=== PATIENT | female | born 1975 | race Caucasian/White ===

== ENCOUNTER 2017-01-24 20:22 | Emergency (ER) | payer OTHER ==
[~2017-01-24] VITALS: Ht 170.2 cm; Wt 142.3 kg
[~2017-01-24 20:22] MED LIST: ASPI81TA28 PO; BENZ0.5T2 PO; CYCL10TA6 PO; DPPI150 IM; KLN5X PO; LISI-729 PO; LITH150C PO; LMC25 PO; LTD/40 PO; NRN400 PO; NRV/10 PO; ONDA4TAB10 SL; POTA-331 PO
[2017-01-24 20:45] VITALS: TEMP 36.9; Ht 170.2 cm; Wt 142.3 kg
[2017-01-24] MEDS ORDERED: SODIUM CHLORIDE 0.9% 1000ML 500 ML IV STA (21:36)
--- NOTE | 2017-01-24 21:50 | EMERGENCY ROOM VISIT NOTE ---
History Report prepared by [place]: Berny Flores Under the Supervision of: Dr. Donnell Guevara M.D. First contact with patient: 21:32 Chief Complaint: HYPERTENSION Stated Complaint: HIGH BP History of Present Illness The patient is a 41 year old female who presents to the Emergency Room with complaints of persistent hypertension beginning four hours prior to arrival. She associates intermittent shortness of breath, intermittent chest pain that lasts a couple seconds, resolved heart pounding, and general dizziness with today's symptoms. The patient states she took her blood pressure at the onset of symptoms and it was 124/98, but her last blood pressure was 131/101. She notes her pressure is usually 128/68. She states she takes blood pressure medication and denies missing any doses. The patient notes she has a superficial blood clot in her leg that was diagnosed a couple months ago, and her father recently had a DVT. She states she takes Aspirin. The patient also notes she has anxiety, but she has not felt more stressed than usual. She states she takes Ferriday, and her level was last checked over a month ago. The patient denies recent long travel, heart issues, lung disease, cough, and fever. Source of History: patient Onset: four hours MORNING CAREGIVER Position: other (global) Quality: other (hypertension) Timing: other (persistent) Associated Symptoms: + SOB (intermittent), + chest pain (intermittent), No cough, No fevers Note: Associated symptoms: resolved heart pounding, general dizziness. Review of Systems See HPI for pertinent positives & negatives. A total of 10 systems reviewed and were otherwise negative. 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 (16) Morbid Obesity (17) Obesity, morbid, BMI 40.0-49.9 (18) PCOS (polycystic ovarian syndrome) (19) Seizure disorder Surgical Problems: (1) H/O dilation and curettage (2) Hx of cholecystectomy (3) Hx of cholecystectomy (4) S/p removal of ruptured ovarian cyst Family History Depression FATHER Diabetes mellitus MOTHER FH: GA (myocardial infarction) FH: bipolar disorder FATHER SON FH: cancer MOTHER (endometrial CA) FH: gallbladder disease FH: heart disease MOTHER Hypertension MOTHER Seizures Social History Smoking Status: Current Every Day Smoker Alcohol Use: none Drug Use: none Marital Status: Housing Status: lives with family Occupation Status: employed Current/Historical Medications Scheduled Amlodipine Besylate (Amlodipine Besylate), 10 MG PO 1700 Aspirin (Aspirin Ec), 162 MG PO DAILY Fish Oil ([place]-3), 1 CAP PO DAILY Gabapentin (Neurontin), 600 MG PO TID Lamotrigine (Lamotrigine), 50 MG PO QAM Lamotrigine (Lamictal), 100 MG PO HS Lisinopril (Zestril), 10 MG PO DAILY Ferriday Carbonate (Ferriday Carbonate), 150 MG PO QAM [place] Carbonate (Ferriday Carbonate), 1,350 MG PO HS Lorazepam (Ativan), 0.5 MG PO TID Lurasidone HCl (Latuda), 80 MG PO 1700 Metformin Hcl (Glucophage), 1,000 MG PO BIDM Multivitamin (Multivitamin), 1 TAB PO DAILY Omeprazole (Prilosec), 20 MG PO DAILY Potassium Ext Rel (Klor-Con), 40 MEQ PO DAILY Probiotic Product (Probiotic), 1 TAB PO DAILY Scheduled PRN Cetirizine Hcl (Zyrtec), 10 MG PO DAILY PRN for Allergy Symptoms Allergies Coded Allergies: No Known Allergies (Verified , 01/24/17) Physical Exam Vital Signs Date Time Temp Pulse Resp B/P Pulse Ox O2 Delivery O2 Flow Rate FiO2 01/25/17 01:44 99 18 132/82 95 01/25/17 01:23 102 01/25/17 00:52 97 18 132/89 94 Room Air 01/24/17 23:00 106 18 132/96 95 Room Air 01/24/17 22:30 153/104 01/24/17 22:22 102 19 95 01/24/17 22:19 146/118 01/24/17 21:52 113 24 96 01/24/17 21:23 113 01/24/17 21:22 113 17 95 01/24/17 21:09 133/104 01/24/17 21:09 123 20 133/104 97 Room Air 01/24/17 20:45 36.9 126 20 149/97 96 Room Air Physical Exam GENERAL: Patient is in no acute distress. HEENT: No acute trauma, normocephalic atraumatic, mucous membranes moist, no nasal congestion, no scleral icterus. NECK: No stridor, no adenopathy, no meningismus, trachea is midline. LUNGS: Clear to auscultation bilaterally, no wheeze, no rhonchi, breath sounds equal. HEART: Tachycardic with a regular rhythm, no murmurs. ABDOMEN: Soft, nontender, bowel sounds positive, no hernias, no peritonitis. EXTREMITIES: No cyanosis or edema, full range of motion of all the joints without pain or difficulty, no signs for acute trauma. NEUROLOGIC: Oriented x 3, no acute motor or sensory deficits, no focal weakness. SKIN: No rash, no jaundice, no diaphoresis. Medical Decision & Procedures ER Provider Diagnostic Interpretation: X ray results and stated below per my interpretation and radiologist interpretation. Other radiology results and stated below per my review and radiologist interpretation: SINGLE VIEW CHEST CLINICAL HISTORY: Weakness. Change in mental status. FINDINGS: An AP, portable, upright chest radiograph is compared to study dated 06/20/2015 and correlated with chest CT dated 05/29/2015. The examination is degraded by portable technique, large body habitus, and apical lordotic positioning. The cardiomediastinal silhouette is unremarkable. The lungs and pleural spaces are clear. No pneumothorax is seen. The bony thorax is grossly intact. IMPRESSION: No acute cardiopulmonary abnormality. Electronically signed by: Donnell Nuno M.D. 01/24/2017 10:01 PM CTA CHEST: No central pulmonary embolus. No effusions or confluent consolidation. Large fatty liver. Radiologist: Janine Craig M.D. Study ready at 00:28 and initial results transmitted at 00:56 Laboratory Results 01/24/17 22:05 Red Blood Count 5.25, Mean Corpuscular Volume 79.4, Mean Corpuscular Hemoglobin 26.1, Mean Corpuscular Hemoglobin Concent 32.9, Mean Platelet Volume 9.2, Neutrophils (%) (Auto) 68.3, Lymphocytes (%) (Auto) 24.6, Monocytes (%) (Auto) 5.8, Eosinophils (%) (Auto) 0.8, Basophils (%) (Auto) 0.1, Neutrophils # (Auto) 12.36, Lymphocytes # (Auto) 4.45, Monocytes # (Auto) 1.04, Eosinophils # (Auto) 0.14, Basophils # (Auto) 0.01 01/24/17 22:05 Test 01/24/17 22:05 01/24/17 22:07 White Blood Count 18.08 K/uL (4.8-10.8) Red Blood Count 5.25 M/uL (4.2-5.4) Hemoglobin 13.7 g/dL (12.0-16.0) Hematocrit 41.7 % (37-47) Mean Corpuscular Volume 79.4 fL (80-100) Mean Corpuscular Hemoglobin 26.1 pg (25-34) Mean Corpuscular Hemoglobin Concent 32.9 g/dl (32-36) Platelet Count 367 K/uL (130-400) Mean Platelet Volume 9.2 fL (7.4-10.4) Neutrophils (%) (Auto) 68.3 % Lymphocytes (%) (Auto) 24.6 % Monocytes (%) (Auto) 5.8 % Eosinophils (%) (Auto) 0.8 % Basophils (%) (Auto) 0.1 % Neutrophils # (Auto) 12.36 K/uL (1.4-6.5) Lymphocytes # (Auto) 4.45 K/uL (1.2-3.4) Monocytes # (Auto) 1.04 K/uL (0.11-0.59) Eosinophils # (Auto) 0.14 K/uL (0-0.5) Basophils # (Auto) 0.01 K/uL (0-0.2) RDW Standard Deviation 46.6 fL (36.4-46.3) RDW Coefficient of Variation 16.2 % (11.5-14.5) Immature Granulocyte % (Auto) 0.4 % Immature Granulocyte # (Auto) 0.08 K/uL (0.00-0.02) Prothrombin Time 9.7 SECONDS (9.0-12.0) Prothromb Time International Ratio 0.9 (0.9-1.1) Activated Partial Thromboplast Time 24.3 SECONDS (21.0-31.0) Partial Thromboplastin Ratio 0.9 Anion Gap 15.0 mmol/L (3-11) Est Creatinine Clear Calc Drug Dose 109.7 ml/min Estimated GFR () 81.5 Estimated GFR (Non- 70.3 BUN/Creatinine Ratio 11.0 (10-20) Calcium Level 9.2 mg/dl (8.5-10.1) Magnesium Level 1.9 mg/dl (1.8-2.4) Troponin I < 0.015 ng/ml (0-0.045) Thyroid Stimulating Hormone (TSH) 2.370 uIu/ml (0.300-4.500) Ferriday Level 0.4 mMOL/L (0.6-1.2) Bedside D-Dimer > 450 ng/mlFEU (0-450) Laboratory results reviewed by me. Medications Administered Medications (Trade) Dose Ordered Sig/Amanda Route Start Time Stop Time Status Last Admin Dose Admin Sodium Chloride (Nss 1000ml) 500 ml @ 999 mls/hr Q31M STAT IV 01/24/17 21:36 01/24/17 22:06 DC 01/24/17 21:36 999 MLS/HR ECG Indication: other (hypertension) Rate (beats per minute): 118 Rhythm: sinus tachycardia Findings: no acute ischemic change, no ectopy ED Course 2133: The patient was evaluated in room B4B. A complete history and physical exam was performed. 6: Ordered Sodium Chloride 500 ml @ 999 mls/hr IV. 0029: Reevaluated the patient at this time, and she is doing well and waiting on test results. 0112: Reevaluated the patient, and her blood pressure is 118/60 and heart rate is 84, while she was sleeping. Discussed results and discharge instructions: She verbalized understanding and agreement. The patient is ready for discharge. Medical Decision The differential diagnoses include but are not limited to: anxiety, essential hypertension, renal failure, electrolyte imbalance, viral infection, PE, dysrhythmia, thyroid disorder, toxic lithium level. There is a moderate leukocytosis at 18,000, this could be consistent with infection or the stress of her presentation. Of note, patient has not had fever , cough, no urinary symptoms. There was no significant electrolyte abnormality, kidney failure. The patient appears to be in a euthyroid state. EKG shows a sinus tachycardia, no acute ischemia. Cardiac enzyme testing times one is not consistent with acute cardiac injury. Chest x-ray does not show CHF or pneumonia. D-dimer testing was elevated. Chest CT shows no PE, no pneumonia or aortic dissection. Ferriday level was not toxic. The patient received IV saline, she was watched closely. Her heart rate and blood pressure decreased to normal, she felt better. In retrospect, the patient admits to some increased stress in that her son is back home. I do think she can be discharged to follow with her doctors office. Her presentation today may have been stress related. She currently has no complaints. Her symptoms have resolved. Impression Primary Impression: Palpitations Scribe Attestation The scribe's documentation has been prepared under my direction and personally reviewed by me in its entirety. I confirm that the note above accurately reflects all work, treatment, procedures, and medical decision making performed by me. Departure Information Dispostion Home / Self-Care Referrals Ingrid Arthur D.O. (PCP) Forms HOME CARE DOCUMENTATION FORM, IMPORTANT VISIT INFORMATION Patient Instructions My [facility] Additional Instructions all meds the same for now testing today was all ok as discussed no clot by CT scan return if worsening see emelina cifuentes for a recheck this week
--- NOTE | 2017-01-24 22:02 | DIAGNOSTIC IMAGING REPORT ---
SINGLE VIEW CHEST CLINICAL HISTORY: Weakness. Change in mental status. FINDINGS: An AP, portable, upright chest radiograph is compared to study dated 06/20/2015 and correlated with chest CT dated 05/29/2015. The examination is degraded by portable technique, large body habitus, and apical lordotic positioning. The cardiomediastinal silhouette is unremarkable. The lungs and pleural spaces are clear. No pneumothorax is seen. The bony thorax is grossly intact. IMPRESSION: No acute cardiopulmonary abnormality. Electronically signed by: Donnell Nuno M.D. 01/24/2017 10:01 PM Dictated Date/Time: 01/24/2017 10:00 PM
[2017-01-24 22:14] LABS: BASO % 0.1 %; BASO ABS # 0.01 K/uL (0-0.2); COMPLETE YES; EOS % 0.8 %; HEMATOCRIT 41.7 % (37-47); IG% 0.4 %; LYMPH % 24.6 %; LYMPH ABS # 4.45 K/uL (1.2-3.4); MEAN CELL VOLUME 79.4 fL (80-100); MEAN CORPUSCULAR HEMOGLOBIN 26.1 pg (25-34); MEAN CORPUSCULAR HGB CONC 32.9 g/dl (32-36); MEAN PLATELET VOLUME 9.2 fL (7.4-10.4); MONO % 5.8 %; NEUT % 68.3 %; PLATELET COUNT 367 K/uL (130-400); RED BLOOD COUNT 5.25 M/uL (4.2-5.4); WHITE BLOOD COUNT 18.08 K/uL (4.8-10.8)
[2017-01-24 22:22] LABS: INR 0.9 (0.9-1.1); PARTIAL THROMBOPLASTIN RATIO 0.9; PROTHROMBIN TIME (PATIENT) 9.7 SECONDS (9.0-12.0)
[2017-01-24 22:34] LABS: BLOOD UREA NITROGEN 11 mg/dl (7-18); CARBON DIOXIDE 19 mmol/L (21-32); CHLORIDE 107 mmol/L (98-107); CREATININE 0.99 mg/dl (0.60-1.20); GLUCOSE 174 mg/dl (70-99); MAGNESIUM 1.9 mg/dl (1.8-2.4); POTASSIUM 3.5 mmol/L (3.5-5.1); SODIUM 141 mmol/L (136-145)
[2017-01-24 22:42] LABS: CALCIUM 9.2 mg/dl (8.5-10.1)
[2017-01-24] MEDS ORDERED: GABA-113 PO (23:12)
[2017-01-24] MEDS ORDERED: LAMO100T16 PO (23:12)
[2017-01-24] MEDS ORDERED: LORA-741 PO (23:13)
[2017-01-24] MEDS ORDERED: LITH150C PO (23:15)
[2017-01-24] MEDS ORDERED: LITH150C6 PO (23:16)
[2017-01-24] MEDS ORDERED: POTA20TA16 PO (23:19)
[2017-01-25 01:44] VITALS: BP 132/82; PULSE 99; O2SAT 95
--- NOTE | 2017-01-25 06:46 | DIAGNOSTIC IMAGING REPORT ---
CT ANGIOGRAM OF THE CHEST CLINICAL HISTORY: Atypical chest pain COMPARISON STUDY: 05/29/2015 TECHNIQUE: Following the IV administration of 84 mL of Optiray-320, CT angiogram of the thorax was performed from the thoracic inlet to the lung bases utilizing the pulmonary embolus protocol. Images are reviewed in the axial, sagittal, and coronal planes. IV contrast was administered without complication. MIP imaging was performed. CT DOSE: 751.71 mGy.cm FINDINGS: There is hepatic steatosis. No pathologically enlarged axillary mediastinal or hilar lymph nodes were visualized. There was no evidence of thoracic aortic dilatation. There were no pulmonary artery filling defects to indicate acute pulmonary embolism. No pleural effusions are visualized. There was no evidence of focal pulmonary consolidation. The study is mildly compromised secondary to respiratory motion artifact IMPRESSION: 1. Examination mildly compromised secondary to respiratory motion artifact 2. No CT evidence of acute pulmonary embolism 3. No evidence of focal pulmonary consolidation. 3. Hepatic steatosis Electronically signed by: Gokul Norris M.D. 01/25/2017 6:45 AM Dictated Date/Time: 01/25/2017 6:42 AM
== END 2017-01-25 01:46 | disposition home or self-care (01) ==
LOC: C.EDB 20:23
DX: R00.2 Palpitations (principal); F41.9 Anxiety disorder, unspecified; F31.9 Bipolar disorder, unspecified; E88.81 Metabolic syndrome and other insulin resistance; K21.9 Gastro-esophageal reflux disease without esophagitis; I10 Essential (primary) hypertension; E16.1 Other hypoglycemia; G47.10 Hypersomnia, unspecified; N28.9 Disorder of kidney and ureter, unspecified; E66.01 Morbid (severe) obesity due to excess calories; E28.2 Polycystic ovarian syndrome; G40.909 Epilepsy, unspecified, not intractable, without status epilepticus; Z83.3 Family history of diabetes mellitus; Z82.49 Family history of ischemic heart disease and other diseases of the circulatory system; Z82.0 Family history of epilepsy and other diseases of the nervous system; F17.200 Nicotine dependence, unspecified, uncomplicated; Z79.82 Long term (current) use of aspirin

== ENCOUNTER 2017-04-19 13:46 | Emergency (ER) | payer OTHER ==
[~2017-04-19] VITALS: Ht 170.2 cm; Wt 133.8 kg
[~2017-04-19 13:46] MED LIST changes: -BENZ0.5T2 PO; -CYCL10TA6 PO; -DPPI150 IM; +GABA-113 PO; -KLN5X PO; +LAMO100T16 PO; +LITH150C6 PO; +LORA-741 PO; -NRN400 PO; -ONDA4TAB10 SL; -POTA-331 PO; +POTA20TA16 PO
[2017-04-19 13:49] VITALS: TEMP 37.2; Ht 170.2 cm; Wt 133.8 kg
--- NOTE | 2017-04-19 14:11 | EMERGENCY ROOM VISIT NOTE ---
ED Visit Note First contact with patient: 13:54 I have seen and examined this patient with Yuliet Dill and generally agree with the treatment plan as discussed. Problem List Medical Problems: (1) Anxiety Status: Chronic (2) Anxiety Status: Chronic (3) Bipolar 1 disorder Status: Chronic (4) Bipolar disorder Status: Chronic (5) Depression Status: Chronic (6) Depression Status: Chronic (7) Dysmetabolic Syndrome X Status: Chronic (8) Esophageal Reflux Status: Chronic (9) Headache Status: Resolved (10) HTN (hypertension) Status: Chronic (11) HTN (hypertension) Status: Resolved (12) Hyperinsulinemia Status: Chronic (13) Hypersomnia with sleep apnea Status: Chronic (14) Kidney disease Status: Chronic (15) [place] toxicity Status: Resolved (16) Morbid Obesity Status: Chronic (17) Obesity, morbid, BMI 40.0-49.9 Status: Chronic (18) PCOS (polycystic ovarian syndrome) Status: Chronic (19) Seizure disorder Status: Chronic Surgical Problems: (1) H/O dilation and curettage Status: Chronic (2) Hx of cholecystectomy Status: Resolved (3) Hx of cholecystectomy Status: Chronic (4) S/p removal of ruptured ovarian cyst Status: Chronic Current/Historical Medications Scheduled Amlodipine Besylate (Amlodipine Besylate), 10 MG PO 1700 Aspirin (Aspirin Ec), 162 MG PO DAILY Fish Oil ([place]-3), 1 CAP PO DAILY Gabapentin (Neurontin), 600 MG PO TID Lamotrigine (Lamotrigine), 50 MG PO QAM Lamotrigine (Lamictal), 100 MG PO HS Lisinopril (Zestril), 10 MG PO DAILY [place] Carbonate ([place] Carbonate), 150 MG PO QAM [place] Carbonate ([place] Carbonate), 1,350 MG PO HS Lorazepam (Ativan), 0.5 MG PO TID Lurasidone HCl (Latuda), 80 MG PO 1700 Metformin Hcl (Glucophage), 1,000 MG PO BIDM Multivitamin (Multivitamin), 1 TAB PO DAILY Omeprazole (Prilosec), 20 MG PO DAILY Potassium Ext Rel (Klor-Con), 40 MEQ PO DAILY Probiotic Product (Probiotic), 1 TAB PO DAILY Scheduled PRN Cetirizine Hcl (Zyrtec), 10 MG PO DAILY PRN for Allergy Symptoms Allergies Coded Allergies: No Known Allergies (Verified , 01/24/17) Vital Signs Date Time Temp Pulse Resp B/P (MAP) Pulse Ox O2 Delivery O2 Flow Rate FiO2 04/19/17 13:49 37.2 95 20 158/96 97 Room Air Laboratory Results Test 04/19/17 14:05 Creatine Kinase MB Ratio (0-3.0) Departure Information Referrals Ingrid Arthur D.O. (PCP) Patient Instructions [facility]
[2017-04-19] MEDS ORDERED: LITH600C PO (14:44)
[2017-04-19] MEDS ORDERED: ASPI325T45 PO (14:44)
[2017-04-19] MEDS ORDERED: NRN600 PO (14:44)
[2017-04-19] MEDS ORDERED: CLON1TAB3 PO (14:44)
[2017-04-19] MEDS ORDERED: VTMD400 PO (14:44)
[2017-04-19] MEDS ORDERED: AMLO-110 PO (14:44)
[2017-04-19 14:52] LABS: BASO % 0.7 %; BASO ABS # 0.08 K/uL (0-0.2); COMPLETE YES; EOS % 5.1 %; HEMATOCRIT 42.5 % (37-47); IG% 0.3 %; LYMPH % 44.7 %; LYMPH ABS # 4.81 K/uL (1.2-3.4); MEAN CELL VOLUME 81.4 fL (80-100); MEAN CORPUSCULAR HEMOGLOBIN 26.6 pg (25-34); MEAN CORPUSCULAR HGB CONC 32.7 g/dl (32-36); MEAN PLATELET VOLUME 9.5 fL (7.4-10.4); MONO % 5.9 %; NEUT % 43.3 %; PLATELET COUNT 334 K/uL (130-400); RED BLOOD COUNT 5.22 M/uL (4.2-5.4); WHITE BLOOD COUNT 10.75 K/uL (4.8-10.8)
[2017-04-19 14:54] LABS: POINT OF CARE PRO-BNP 42 pg/ml (0-450); POINT OF CARE TROPONIN I < 0.030 ng/ml (0-0.045)
--- NOTE | 2017-04-19 15:01 | DIAGNOSTIC IMAGING REPORT ---
RIGHT LOWER EXTREMITY VENOUS DOPPLER CLINICAL HISTORY: Right leg pain. COMPARISON STUDY: Bilateral lower extremity venous Doppler May 29, 2015. TECHNIQUE: Sonography of the deep venous system of the right lower extremity was performed. Compression and augmentation were evaluated. FINDINGS: The right common femoral, superficial femoral and popliteal veins were compressible. Augmentation was normal. Flow was shown within the deep calf vessels. IMPRESSION: No evidence of deep venous thrombus within the right lower extremity. Electronically signed by: Ugo Price M.D. 04/19/2017 2:59 PM Dictated Date/Time: 04/19/2017 2:59 PM
[2017-04-19 15:03] LABS: INR 0.9 (0.9-1.1); PROTHROMBIN TIME (PATIENT) 9.4 SECONDS (9.0-12.0)
[2017-04-19 15:08] LABS: BLOOD UREA NITROGEN 7 mg/dl (7-18); BUN/CREATININE RATIO 6.6 (10-20); CALCIUM 9.5 mg/dl (8.5-10.1); CARBON DIOXIDE 23 mmol/L (21-32); CHLORIDE 109 mmol/L (98-107); GLUCOSE 117 mg/dl (70-99); POTASSIUM 3.7 mmol/L (3.5-5.1); SODIUM 142 mmol/L (136-145)
--- NOTE | 2017-04-19 15:18 | DIAGNOSTIC IMAGING REPORT ---
CHEST 2 VIEWS ROUTINE CLINICAL HISTORY: Chest pressure. Chest pain. COMPARISON STUDY: Chest radiograph January 24, [address] January 25, 2017. FINDINGS: There is no pneumothorax or pleural effusion. No consolidation is identified. There is no evidence of pulmonary edema. Cardiomediastinal silhouette is normal. IMPRESSION: No acute cardiopulmonary findings. Electronically signed by: Ugo Price M.D. 04/19/2017 3:17 PM Dictated Date/Time: 04/19/2017 3:16 PM
[2017-04-19 15:36] VITALS: BP 119/83; PULSE 77; O2SAT 96
--- NOTE | 2017-04-19 15:46 | EMERGENCY ROOM VISIT NOTE ---
History First contact with patient: 13:54 Chief Complaint: CARDIAC ASSESSMENT Stated Complaint: HEAVYNESS IN CHEST ,BLOOD CLOT IN GROIN Nursing Triage Summary: Yesterday had sharp pain in calf but then the pain started to travel up leg today. Has a weird "brewing" feeling in chest. History of Present Illness The patient is a 41 year old female who presents to the Emergency Room with complaints of right leg pain. The patient states that last night she had pain in the right calf but denies any redness or swelling. She states this morning the pain is now in the right groin region again without any swelling or redness. She also states that her chest feels "weird, like something is brewing ". The patient denies any shortness of breath, recent URI symptoms. The patient denies any jaw pain or arm pain. She denies any numbness and tingling in her extremities. The patient denies any recent travel or any history of blood clots. She is a smoker. The patient states that she takes a 325 mg aspirin daily. She also states that her clotting factor is usually elevated but denies being diagnosed with any specific clotting disorder. The patient denies any history of cardiac disease but does admit to hypertension and hyperlipidemia. The patient denies any early family history of cardiac disease. Review of Systems 10 system review was performed and was negative unless stated otherwise history of present illness. Past Medical/Surgical History Medical Problems: (1) Anxiety (2) Anxiety (3) Bipolar 1 disorder (4) Bipolar disorder (5) Depression (6) Depression (7) Dysmetabolic Syndrome X (8) Esophageal Reflux (9) Headache (10) HTN (hypertension) (11) HTN (hypertension) (12) Hyperinsulinemia (13) Hypersomnia with sleep apnea (14) Kidney disease (15) [place] toxicity (16) Morbid Obesity (17) Obesity, morbid, BMI 40.0-49.9 (18) PCOS (polycystic ovarian syndrome) (19) Seizure disorder Surgical Problems: (1) H/O dilation and curettage (2) Hx of cholecystectomy (3) Hx of cholecystectomy (4) S/p removal of ruptured ovarian cyst Family History Depression FATHER Diabetes mellitus MOTHER FH: OR (myocardial infarction) FH: bipolar disorder FATHER SON FH: cancer MOTHER (endometrial CA) FH: gallbladder disease FH: heart disease MOTHER Hypertension MOTHER Seizures Social History Smoking Status: Current Every Day Smoker Alcohol Use: none Drug Use: none Marital Status: Housing Status: lives with family Occupation Status: employed Current/Historical Medications Scheduled Amlodipine (Norvasc), 5 MG PO BID Aspirin (Aspirin), 325 MG PO DAILY Cholecalciferol (Vitamin D3), 1 TAB PO QAM Clonazepam (Klonopin), 1 MG PO TID Fish Oil ([place]-3), 1 CAP PO DAILY Gabapentin (Gabapentin), 600 MG PO TID Lamotrigine (Lamotrigine), 50 MG PO QAM Lisinopril (Zestril), 10 MG PO DAILY [place] Carbonate ([place] Carbonate), 1,200 MG PO HS Metformin Hcl (Glucophage), 1,000 MG PO BIDM Multivitamin (Multivitamin), 1 TAB PO DAILY Omeprazole (Prilosec), 20 MG PO BID Potassium Ext Rel (Klor-Con), 40 MEQ PO DAILY Probiotic Product (Probiotic), 1 TAB PO DAILY Scheduled PRN Cetirizine Hcl (Zyrtec), 10 MG PO DAILY PRN for Allergy Symptoms Physical Exam Vital Signs Date Time Temp Pulse Resp B/P (MAP) Pulse Ox O2 Delivery O2 Flow Rate FiO2 04/19/17 15:36 77 16 119/83 96 04/19/17 14:14 84 04/19/17 14:08 97 Room Air 04/19/17 13:49 37.2 95 20 158/96 97 Room Air Physical Exam GENERAL: Obese 41-year-old white female appears in no acute distress. MENTAL Status: Alert and oriented 3. EARS: Canals clear. TMs without fluid level noted. NECK: Supple, no lymphadenopathy noted. No carotid bruits noted. LUNGS: Clear auscultation without wheezes rales or rhonchi. CARDIAC: Regular rate and rhythm without murmur. Pulses is full and equal throughout. ABDOMEN: Positive bowel sounds all 4 quadrants. Soft, nontender to palpation without organomegaly or masses. LOWER EXTREMITY is: No cyanosis or edema noted. No erythema noted. No palpable cords bilaterally. The patient has slight tenderness palpation in the right upper inner thigh without any palpable abnormality. Negative Homans bilaterally. Medical Decision & Procedures ER Provider Diagnostic Interpretation: CHEST 2 VIEWS ROUTINE CLINICAL HISTORY: Chest pressure. Chest pain. COMPARISON STUDY: Chest radiograph January 24, [address] January 25, 2017. FINDINGS: There is no pneumothorax or pleural effusion. No consolidation is identified. There is no evidence of pulmonary edema. Cardiomediastinal silhouette is normal. IMPRESSION: No acute cardiopulmonary findings. Electronically signed by: Ugo Price M.D. 04/19/2017 3:17 PM Dictated Date/Time: 04/19/2017 3:16 PM RIGHT LOWER EXTREMITY VENOUS DOPPLER CLINICAL HISTORY: Right leg pain. COMPARISON STUDY: Bilateral lower extremity venous Doppler May 29, 2015. TECHNIQUE: Sonography of the deep venous system of the right lower extremity was performed. Compression and augmentation were evaluated. FINDINGS: The right common femoral, superficial femoral and popliteal veins were compressible. Augmentation was normal. Flow was shown within the deep calf vessels. IMPRESSION: No evidence of deep venous thrombus within the right lower extremity. Electronically signed by: Ugo Price M.D. 04/19/2017 2:59 PM Dictated Date/Time: 04/19/2017 2:59 PM Laboratory Results 04/19/17 14:30 Red Blood Count 5.22, Mean Corpuscular Volume 81.4, Mean Corpuscular Hemoglobin 26.6, Mean Corpuscular Hemoglobin Concent 32.7, Mean Platelet Volume 9.5, Neutrophils (%) (Auto) 43.3, Lymphocytes (%) (Auto) 44.7, Monocytes (%) (Auto) 5.9, Eosinophils (%) (Auto) 5.1, Basophils (%) (Auto) 0.7, Neutrophils # (Auto) 4.65, Lymphocytes # (Auto) 4.81, Monocytes # (Auto) 0.63, Eosinophils # (Auto) 0.55, Basophils # (Auto) 0.08 04/19/17 14:30 Test 04/19/17 14:30 04/19/17 14:35 White Blood Count 10.75 K/uL (4.8-10.8) Red Blood Count 5.22 M/uL (4.2-5.4) Hemoglobin 13.9 g/dL (12.0-16.0) Hematocrit 42.5 % (37-47) Mean Corpuscular Volume 81.4 fL (80-100) Mean Corpuscular Hemoglobin 26.6 pg (25-34) Mean Corpuscular Hemoglobin Concent 32.7 g/dl (32-36) Platelet Count 334 K/uL (130-400) Mean Platelet Volume 9.5 fL (7.4-10.4) Neutrophils (%) (Auto) 43.3 % Lymphocytes (%) (Auto) 44.7 % Monocytes (%) (Auto) 5.9 % Eosinophils (%) (Auto) 5.1 % Basophils (%) (Auto) 0.7 % Neutrophils # (Auto) 4.65 K/uL (1.4-6.5) Lymphocytes # (Auto) 4.81 K/uL (1.2-3.4) Monocytes # (Auto) 0.63 K/uL (0.11-0.59) Eosinophils # (Auto) 0.55 K/uL (0-0.5) Basophils # (Auto) 0.08 K/uL (0-0.2) RDW Standard Deviation 47.2 fL (36.4-46.3) RDW Coefficient of Variation 15.7 % (11.5-14.5) Immature Granulocyte % (Auto) 0.3 % Immature Granulocyte # (Auto) 0.03 K/uL (0.00-0.02) Prothrombin Time 9.4 SECONDS (9.0-12.0) Prothromb Time International Ratio 0.9 (0.9-1.1) Activated Partial Thromboplast Time 25.5 SECONDS (21.0-31.0) Partial Thromboplastin Ratio 1.0 Anion Gap 10.0 mmol/L (3-11) Est Creatinine Clear Calc Drug Dose 104.7 ml/min Estimated GFR () 80.5 Estimated GFR (Non- 69.4 BUN/Creatinine Ratio 6.6 (10-20) Calcium Level 9.5 mg/dl (8.5-10.1) Total Creatine Kinase 51 U/L (26-192) Creatine Kinase MB < 0.5 ng/ml (0.5-3.6) Creatine Kinase MB Ratio (0-3.0) Bedside Troponin I < 0.030 ng/ml (0-0.045) EJ-Yoa-F-Type Natriuretic Peptide 42 pg/ml (0-450) ECG Indication: chest pain Rhythm: normal sinus Findings: no acute ischemic change Change: no significant change ED Course The patient was evaluated. EKG was ordered and interpreted as above any acute changes.. The patient's EMR and medication list were reviewed. Patient was placed on a monitor. Chest x-ray was ordered interpreted by the radiologist and myself as above. Venous Doppler of the right lower extremity was ordered and interpreted by the radiologist without any evidence of DVT. CBC and differential, renal profile, coags, pointing care troponin and BNP, CK-MB were ordered and were all unremarkable. Chest x-ray revealed no acute cardio pulmonary disease. The patient was informed of all findings. The patient's treatment plan was discussed with Dr. Schumacher who agreed. The patient was discharged home in stable condition. Medical Decision Differential diagnosis include pneumonia, bronchitis, acute OR, DVT, superficial phlebitis, muscular strain Medication Reconcilliation Current Medication List: was personally reviewed by me Blood Pressure Screening Patient's blood pressure: Elevated blood pressure Blood pressure disposition: Elevated BP felt to be situational Impression Primary Impression: Leg pain, right Additional Impression: Chest pain Departure Information Dispostion Home / Self-Care Condition GOOD Referrals Ingrid Arthur D.O. (PCP) Forms IMPORTANT VISIT INFORMATION Patient Instructions [employer] Additional Instructions Tylenol as needed for pain. If symptoms persist or worsen, follow-up with your family physician in 2-3 days. If you experience any severe chest pain, shortness of breath, high fever, diaphoresis return to ER immediately. Problem Qualifiers Additional Impression: Chest pain Chest pain type: unspecified Qualified Codes: R07.9 - Chest pain, unspecified
== END 2017-04-19 15:53 | disposition home or self-care (01) ==
LOC: C.EDB 13:47
DX: M79.604 Pain in right leg (principal); R07.9 Chest pain, unspecified; F41.9 Anxiety disorder, unspecified; F31.9 Bipolar disorder, unspecified; F32.9 Major depressive disorder, single episode, unspecified; K21.9 Gastro-esophageal reflux disease without esophagitis; I10 Essential (primary) hypertension; E16.1 Other hypoglycemia; G40.909 Epilepsy, unspecified, not intractable, without status epilepticus; Z83.3 Family history of diabetes mellitus; Z82.49 Family history of ischemic heart disease and other diseases of the circulatory system; Z82.0 Family history of epilepsy and other diseases of the nervous system; F17.200 Nicotine dependence, unspecified, uncomplicated; Z79.82 Long term (current) use of aspirin

== ENCOUNTER 2017-05-03 18:22 | Emergency (ER) | payer OTHER ==
[~2017-05-03] VITALS: Ht 170.2 cm; Wt 132.0 kg
[~2017-05-03 18:22] MED LIST changes: +AMLO-110 PO; +ASPI325T45 PO; -ASPI81TA28 PO; +CLON1TAB3 PO; -GABA-113 PO; -LAMO100T16 PO; -LITH150C PO; -LITH150C6 PO; +LITH600C PO; -LORA-741 PO; -LTD/40 PO; +NRN600 PO; -NRV/10 PO; +VTMD400 PO
[2017-05-03 18:52] VITALS: TEMP 37.5; Ht 170.2 cm; Wt 132.0 kg
[2017-05-03] MEDS ORDERED: CLON0.5T3 PO ×3 (18:59→19:01)
[2017-05-03] MEDS ORDERED: LITH150C PO (18:59)
[2017-05-03] MEDS ORDERED: LTH300C PO (18:59)
[2017-05-03] MEDS ORDERED: LURA80TA PO (18:59)
[2017-05-03] MEDS ORDERED: GABA1CAP4 PO (18:59)
[2017-05-03] MEDS ORDERED: NRV/10 PO (18:59)
[2017-05-03] MEDS ORDERED: LAMO1TAB21 PO (19:01)
[2017-05-03] MEDS ORDERED: ACETAMINOPHEN IV 100 ML IV STA (19:04)
[2017-05-03] MEDS ORDERED: SODIUM CHLORIDE 0.9% 1000ML 1,000 ML IV STA (19:04)
[2017-05-03] MEDS ORDERED: POTA10TA32 PO (19:08)
[2017-05-03] MEDS ORDERED: LISI-461 PO (19:08)
[2017-05-03] MEDS ORDERED: MEDR1INJ5 IM (19:08)
[2017-05-03] MEDS ORDERED: ALBU18002 INH (19:08)
[2017-05-03] MEDS ORDERED: ASPI325T39 PO (19:08)
[2017-05-03 19:13] LABS: HEMATOCRIT 40.7 % (37-47); MEAN CELL VOLUME 80.8 fL (80-100); MEAN CORPUSCULAR HEMOGLOBIN 27.4 pg (25-34); MEAN CORPUSCULAR HGB CONC 33.9 g/dl (32-36); MEAN PLATELET VOLUME 9.6 fL (7.4-10.4); PLATELET COUNT 355 K/uL (130-400); RED BLOOD COUNT 5.04 M/uL (4.2-5.4); WHITE BLOOD COUNT 12.69 K/uL (4.8-10.8)
[2017-05-03] MEDS ORDERED: CHOL1000 PO (19:16)
[2017-05-03 19:25] LABS: ALT/SGPT 28 U/L (12-78); AST/SGOT 12 U/L (15-37); BLOOD UREA NITROGEN 9 mg/dl (7-18); BUN/CREATININE RATIO 7.9 (10-20); CALCIUM 9.9 mg/dl (8.5-10.1); CARBON DIOXIDE 25 mmol/L (21-32); CHLORIDE 104 mmol/L (98-107); GLUCOSE 109 mg/dl (70-99); MAGNESIUM 2.1 mg/dl (1.8-2.4); POTASSIUM 3.9 mmol/L (3.5-5.1); SODIUM 139 mmol/L (136-145)
[2017-05-03 19:36] LABS: ALKALINE PHOSPHATASE 72 U/L (45-117)
[2017-05-03] MEDS ORDERED: CETI10TA10 PO (19:49)
[2017-05-03] MEDS ORDERED: OMEP20CA9 PO (19:49)
[2017-05-03 19:55] LABS: URINE APPEARANCE CLEAR (CLEAR); URINE BILIRUBIN NEG (NEG); URINE COLOR YELLOW; URINE NITRITE NEG (NEG); URINE SPECIFIC GRAVITY 1.011 (1.000-1.030); UROBILINOGEN NEG (NEG); ZZUR CULT IF INDIC CLEAN CATCH NO
[2017-05-03 19:56] LABS: MANUAL MICROSCOPIC REQUIRED? NO; REVIEW REQ? NO
--- NOTE | 2017-05-03 19:59 | DIAGNOSTIC IMAGING REPORT ---
CHEST ONE VIEW PORTABLE HISTORY: 41 years-old Female acute syncope COMPARISON: Chest radiograph 04/19/2017 TECHNIQUE: Portable upright AP view of the chest FINDINGS: Cardiomediastinal and hilar silhouettes are within normal limits. No pneumothorax, pleural effusion or focal airspace consolidation. There is no overt pulmonary edema. The bones are grossly intact. IMPRESSION: No acute cardiopulmonary process. The above report was generated using voice recognition software. It may contain grammatical, syntax or spelling errors. Electronically signed by: Vik Harris M.D. 05/03/2017 7:58 PM Dictated Date/Time: 05/03/2017 7:57 PM
--- NOTE | 2017-05-03 20:01 | DIAGNOSTIC IMAGING REPORT ---
HEAD WITHOUT CONTRAST (CT) CLINICAL HISTORY: 41 years-old Female with fall, syncope, CHI. TECHNIQUE: Multiple axial CT images of the head were obtained without contrast. A dose lowering technique was utilized adhering to the principles of ALARA. CT DOSE: 773.57 mGy.cm COMPARISON: CT head 06/17/2015. FINDINGS: No acute intracranial hemorrhage, midline shift, mass, large territorial ischemia or abnormal extra-axial collection. The calvarium is intact. The paranasal sinuses, mastoid air cells, and middle ear cavities are clear. IMPRESSION: No acute intracranial abnormality. The above report was generated using voice recognition software. It may contain grammatical, syntax or spelling errors. Electronically signed by: Vik Harris M.D. 05/03/2017 8:00 PM Dictated Date/Time: 05/03/2017 7:58 PM
[2017-05-03 20:10] LABS: COMPLETE YES; EOSINOPHIL % 4.3 %; LYMPH ABS # 3.53 K/uL (1.2-3.4); LYMPHOCYTE % 27.8 %; NEUTROPHILS % 42.7 %; VARIANT LYM ABS # 2.65 K/uL; VARIANT LYMPHOCYTE % 20.9 %
--- NOTE | 2017-05-03 20:12 | EMERGENCY ROOM VISIT NOTE ---
History Report prepared by [place]: Lillian Mcgrath Under the Supervision of: Dr. Dia Diaz M.D. First contact with patient: 18:30 Chief Complaint: SYNCOPE (NEAR SYNCOPE) Stated Complaint: SYNCOPE, FALL Nursing Triage Summary: Patient states she felt dizzy and remembers waking up with "a god awful headache". Patient states overall her body now she just feels "weird". states all day long she has been feeling a little strange and tring to nap. heard thud and found patient on the floor at the foot of the bed. states patient was probably out for 15 minutes or so. Patient came to about three minutes before EMS arrived. History of Present Illness The patient is a 41 year old female who presents to the Emergency Room with complaints of an episode of syncope occurring PATIENT NAVIGATOR. Per , he heard a noise in the house but thought that it was just because the windows were open. About 5 minutes later their son was looking for his mother and they went to find her. thought that she was taking a nap, but they found the patient unconscious at the foot of her bed. They were unable to arouse the patient. called 911 and states that a few minutes later the patient woke up on her own. The patient is currently complaining of a headache that began after her syncopal event. She states that she has felt unwell all day. She states, "Everything feels weird - my whole body feels weird." notes that she typically naps for a few hours a day due to her medications, but the patient states that she napped longer today due to not feeling well. She notes that her Klonopin was increased recently. The patient rates her current pain as a 7/10 in severity. Source of History: patient Onset: PATIENT NAVIGATOR Position: other (global) Symptom Intensity: 7/10 Quality: other (syncope) Timing: other (episode) Associated Symptoms: + LOC, + headache Note: Pt has felt generally unwell. Review of Systems See HPI for pertinent positives & negatives. A total of 10 systems reviewed and were otherwise negative. Past Medical & Surgical Medical Problems: (1) Anxiety (2) Anxiety (3) Bipolar 1 disorder (4) Bipolar disorder (5) Depression (6) Depression (7) Dysmetabolic Syndrome X (8) Esophageal Reflux (9) Headache (10) HTN (hypertension) (11) HTN (hypertension) (12) Hyperinsulinemia (13) Hypersomnia with sleep apnea (14) Kidney disease (15) [place] toxicity (16) Morbid Obesity (17) Obesity, morbid, BMI 40.0-49.9 (18) PCOS (polycystic ovarian syndrome) (19) Seizure disorder Surgical Problems: (1) H/O dilation and curettage (2) Hx of cholecystectomy (3) Hx of cholecystectomy (4) S/p removal of ruptured ovarian cyst Family History Depression FATHER Diabetes mellitus MOTHER FH: CA (myocardial infarction) FH: bipolar disorder FATHER SON FH: cancer MOTHER (endometrial CA) FH: gallbladder disease FH: heart disease MOTHER Hypertension MOTHER Seizures Social History Smoking Status: Current Every Day Smoker Alcohol Use: none Drug Use: none Marital Status: Housing Status: lives with family Occupation Status: employed Current/Historical Medications Scheduled Amlodipine Besylate (Amlodipine Besylate), 5 MG PO BID Aspirin (Aspirin Ec), 325 MG PO QAM Cholecalciferol (Vitamin D3), 1,000 INTER.UNIT PO DAILY Clonazepam (Klonopin), 1 MG PO QAM Clonazepam (Klonopin), 1 MG PO QD@1200 Clonazepam (Klonopin), 0.5 MG PO QD@1600 Fish Oil ([place]-3), 1 CAP PO DAILY Gabapentin (Gabapentin), 600 MG PO TID Lamotrigine (Lamotrigine), 100 MG PO BID Lisinopril (Lisinopril), 10 MG PO DAILY [place] Carbonate ([place] Carbonate), 1,200 MG PO HS [place] Carbonate ([place] Carbonate), 150 MG PO HS Lurasidone Hcl (Latuda), 80 MG PO QPM Medroxyprogesterone Acetate (C (Medroxyprogesterone Aceta), 150 MG IM Q3 MONTHS Metformin Hcl (Glucophage), 1,000 MG PO BIDM Multivitamin (Multivitamin), 1 TAB PO DAILY Omeprazole (Prilosec), 20 MG PO DAILY Potassium Chloride Microencaps (Potassium Chloride Er), 40 MEQ PO DAILY Probiotic Product (Probiotic), 1 TAB PO DAILY Scheduled PRN Albuterol Sulfate (Proair Respiclick), 2 PUFFS INH QID PRN for Seasonal Allergy Symptoms Cetirizine Hcl (Zyrtec), 10 MG PO DAILY PRN for Allergy Symptoms Allergies Coded Allergies: No Known Allergies (Verified , 01/24/17) Physical Exam Vital Signs Date Time Temp Pulse Resp B/P (MAP) Pulse Ox O2 Delivery O2 Flow Rate FiO2 05/03/17 22:14 83 20 114/63 94 Room Air 05/03/17 20:37 68 05/03/17 20:04 74 20 122/86 97 Room Air 05/03/17 19:00 74 20 129/84 94 Room Air 05/03/17 18:52 37.5 86 20 144/80 94 Room Air Physical Exam Vital signs reviewed. General: Chronically ill-appearing 41 year old female, in no significant distress. HEENT: No scleral icterus, PERRLA, neck supple. No meningeal signs. Atraumatic. Cardiovascular: Regular rate and rhythm, no extra sounds. Pulmonary: Clear to auscultation bilaterally, normal work of breathing. Abdomen: Soft, nontender, nondistended, positive bowel sounds. Musculoskeletal: Atraumatic, no peripheral edema. Cervical/thoracic/lumbar spine nontender, no step-offs, no deformity. Neurologic: Patient somewhat groggy, follows commands, answers questions appropriately, oriented x 3, full strength in all 4 extremities. Cranial nerves 2 through 12 grossly intact. Skin: Warm, dry, no rash Medical Decision & Procedures ER Provider Diagnostic Interpretation: Radiology results as stated below per my review and radiologist interpretation: HEAD WITHOUT CONTRAST (CT) CLINICAL HISTORY: 41 years-old Female with fall, syncope, CHI. TECHNIQUE: Multiple axial CT images of the head were obtained without contrast. A dose lowering technique was utilized adhering to the principles of ALARA. CT DOSE: 773.57 mGy.cm COMPARISON: CT head 06/17/2015. FINDINGS: No acute intracranial hemorrhage, midline shift, mass, large territorial ischemia or abnormal extra-axial collection. The calvarium is intact. The paranasal sinuses, mastoid air cells, and middle ear cavities are clear. IMPRESSION: No acute intracranial abnormality. The above report was generated using voice recognition software. It may contain grammatical, syntax or spelling errors. Electronically signed by: Vik Harris M.D. 05/03/2017 8:00 PM Dictated Date/Time: 05/03/2017 7:58 PM CHEST ONE VIEW PORTABLE HISTORY: 41 years-old Female acute syncope COMPARISON: Chest radiograph 04/19/2017 TECHNIQUE: Portable upright AP view of the chest FINDINGS: Cardiomediastinal and hilar silhouettes are within normal limits. No pneumothorax, pleural effusion or focal airspace consolidation. There is no overt pulmonary edema. The bones are grossly intact. IMPRESSION: No acute cardiopulmonary process. The above report was generated using voice recognition software. It may contain grammatical, syntax or spelling errors. Electronically signed by: Vik Harris M.D. 05/03/2017 7:58 PM Dictated Date/Time: 05/03/2017 7:57 PM Laboratory Results 05/03/17 18:10 Red Blood Count 5.04, Mean Corpuscular Volume 80.8, Mean Corpuscular Hemoglobin 27.4, Mean Corpuscular Hemoglobin Concent 33.9, Mean Platelet Volume 9.6 05/03/17 18:10 Test 05/03/17 18:10 05/03/17 19:43 White Blood Count 12.69 K/uL (4.8-10.8) Red Blood Count 5.04 M/uL (4.2-5.4) Hemoglobin 13.8 g/dL (12.0-16.0) Hematocrit 40.7 % (37-47) Mean Corpuscular Volume 80.8 fL (80-100) Mean Corpuscular Hemoglobin 27.4 pg (25-34) Mean Corpuscular Hemoglobin Concent 33.9 g/dl (32-36) Platelet Count 355 K/uL (130-400) Mean Platelet Volume 9.6 fL (7.4-10.4) RDW Standard Deviation 46.0 fL (36.4-46.3) RDW Coefficient of Variation 15.7 % (11.5-14.5) Neutrophils % (Manual) 42.7 % Lymphocytes % (Manual) 27.8 % Variant Lymphocytes % (manual) 20.9 % Monocytes % (Manual) 4.3 % Eosinophils % (Manual) 4.3 % Neutrophils # (Manual) 5.42 K/uL (1.4-6.5) Total Absolute Neutrophils 5.42 K/uL (1.4-6.5) Lymphocytes # (Manual) 3.53 K/uL (1.2-3.4) Absolute Variant Lymphocytes 2.65 K/uL Total Absolute Lymphocytes 6.18 K/uL (1.2-3.4) Monocytes # (Manual) 0.55 K/uL (0.11-0.59) Eosinophils # (Manual) 0.55 K/uL (0-0.5) Red Blood Cell Morphology Unremarkable Anion Gap 10.0 mmol/L (3-11) Est Creatinine Clear Calc Drug Dose 94.4 ml/min Estimated GFR () 71.7 Estimated GFR (Non- 61.9 BUN/Creatinine Ratio 7.9 (10-20) Calcium Level 9.9 mg/dl (8.5-10.1) Magnesium Level 2.1 mg/dl (1.8-2.4) Total Bilirubin 0.3 mg/dl (0.2-1) Direct Bilirubin < 0.1 mg/dl (0-0.2) Aspartate Amino Transf (AST/SGOT) 12 U/L (15-37) Alanine Aminotransferase (ALT/SGPT) 28 U/L (12-78) Alkaline Phosphatase 72 U/L (45-117) Total Protein 8.2 gm/dl (6.4-8.2) Albumin 4.0 gm/dl (3.4-5.0) Thyroid Stimulating Hormone (TSH) 2.080 uIu/ml (0.300-4.500) [place] Level 0.5 mMOL/L (0.6-1.2) Urine Color YELLOW Urine Appearance CLEAR (CLEAR) Urine pH 7.0 (4.5-7.5) Urine Specific [place] 1.011 (1.000-1.030) Urine Protein NEG (NEG) Urine Glucose (UA) NEG (NEG) Urine Ketones TRACE (NEG) Urine Occult Blood NEG (NEG) Urine Nitrite NEG (NEG) Urine Bilirubin NEG (NEG) Urine Urobilinogen NEG (NEG) Urine Leukocyte Esterase NEG (NEG) Laboratory results per my review. Medications Administered Medications (Trade) Dose Ordered Sig/Amanda Route Start Time Stop Time Status Last Admin Dose Admin Sodium Chloride 1,000 ml @ 200 mls/hr Q5H STAT IV 05/03/17 19:04 05/03/17 22:49 DC 05/03/17 19:46 200 MLS/HR Acetaminophen 100 ml @ 400 mls/hr NOW STAT IV 05/03/17 19:04 05/03/17 19:18 DC 05/03/17 19:46 400 MLS/HR Ketorolac Tromethamine (Toradol Inj) 30 mg NOW STAT IV 05/03/17 21:45 05/03/17 21:47 DC 05/03/17 22:11 30 MG ECG Indication: syncope Rate (beats per minute): 91 Rhythm: normal sinus Findings: T-wave inversion (Anterior), no ectopy ED Course 1829: Past medical records reviewed. The patient was evaluated in room C12B. A complete history and physical examination was performed. 1903: Acetaminophen 100 ml @ 400 mls/hr IV, NSS 1000 ml @ 200 mls/hr IV 2142: I reassessed the patient at this time. She is still having a slight headache. I discussed the results and treatment plan with the patient. I answered all pertaining questions that she had. She expressed understanding and verbalized agreement. The patient will be discharged home after receiving Toradol for her headache. 2144: Toradol 30 mg IV Medical Decision Differential diagnosis: Etiologies such as vasovagal event, infection, hypoglycemia, electrolyte abnormalities, cardiac sources, intracerebral event, toxicologic, neurologic, as well as others were entertained. This patient was evaluated and appeared to be in no significant distress. IV access was obtained and laboratory work was drawn. CT scan of the head was performed and reveals no evidence of acute intracranial abnormality. Laboratory work confirms this finding. The patient was given IV fentanyl and Zofran initially. She was hydrated with normal saline solution. When she arrived in the hospital, she was given IV Dilaudid to assist with her pain. Patient's urinalysis is negative. She was discharged to follow-up with her primary care physician this week for reevaluation return to the ER for worsening of symptoms or any medical concerns. Medication Reconcilliation Current Medication List: was personally reviewed by me Blood Pressure Screening Patient's blood pressure: Normal blood pressure Impression Primary Impression: Vasovagal syncope Additional Impression: Migraine headache Scribe Attestation The scribe's documentation has been prepared under my direction and personally reviewed by me in its entirety. I confirm that the note above accurately reflects all work, treatment, procedures, and medical decision making performed by me. Departure Information Dispostion Home / Self-Care Referrals Ingrid Arthur D.O. (PCP) Forms HOME CARE DOCUMENTATION FORM, IMPORTANT VISIT INFORMATION Patient Instructions My [facility] Additional Instructions Diagnosis: Vasovagal syncope, migraine headache Drink plenty of clear fluids. Take your medication as prescribed. Follow-up with your physician this week for reevaluation. Use caution when changing position. Return to the ER for worsening of symptoms or any medical concerns. Problem Qualifiers Additional Impression: Migraine headache Migraine type: unspecified Status migrainosus presence: without status migrainosus Intractability: not intractable Qualified Codes: G43.909 - Migraine, unspecified, not intractable, without status migrainosus
[2017-05-03] MEDS ORDERED: METF-384 PO (21:38)
[2017-05-03] MEDS ORDERED: KETOROLAC TROMETHAMINE 30 MG/ML VIAL IV STA (21:45)
[2017-05-03 22:14] VITALS: BP 114/63; PULSE 83; O2SAT 94
[2017-05-03] MEDS ORDERED: PROB1TAB16 PO (23:20)
[2017-05-03] MEDS ORDERED: MULT-506 PO (23:21)
[2017-05-03] MEDS ORDERED: OMEG10007 PO (23:22)
== END 2017-05-03 22:27 | disposition home or self-care (01) ==
LOC: EDBD 18:22 → C.EDC 18:24
DX: R55 Syncope and collapse (principal); G43.909 Migraine, unspecified, not intractable, without status migrainosus; F41.9 Anxiety disorder, unspecified; F31.9 Bipolar disorder, unspecified; F32.9 Major depressive disorder, single episode, unspecified; E88.81 Metabolic syndrome and other insulin resistance; K21.9 Gastro-esophageal reflux disease without esophagitis; I10 Essential (primary) hypertension; E16.1 Other hypoglycemia; E66.01 Morbid (severe) obesity due to excess calories; E28.2 Polycystic ovarian syndrome; G40.909 Epilepsy, unspecified, not intractable, without status epilepticus; Z83.3 Family history of diabetes mellitus; Z82.49 Family history of ischemic heart disease and other diseases of the circulatory system; Z82.0 Family history of epilepsy and other diseases of the nervous system; F17.200 Nicotine dependence, unspecified, uncomplicated; Z79.82 Long term (current) use of aspirin

== ENCOUNTER 2017-06-28 12:51 | Emergency (ER) | payer OTHER ==
[~2017-06-28] VITALS: Ht 170.2 cm; Wt 120.9 kg
[~2017-06-28 12:51] MED LIST changes: +ALBU18002 INH; -AMLO-110 PO; +ASPI325T39 PO; -ASPI325T45 PO; +CETI10TA10 PO; +CHOL1000 PO; +CLON0.5T3 PO; -CLON1TAB3 PO; +GABA1CAP4 PO; +LAMO1TAB21 PO; +LISI-461 PO; -LISI-729 PO; +LITH150C PO; -LITH600C PO; -LMC25 PO; +LTH300C PO; +LURA80TA PO; +MEDR1INJ5 IM; +METF-384 PO; +MULT-506 PO; -NRN600 PO; +NRV/10 PO; +OMEG10007 PO; +OMEP20CA9 PO; +POTA10TA32 PO; -POTA20TA16 PO; +PROB1TAB16 PO; -VTMD400 PO
[2017-06-28 12:58] VITALS: TEMP 37.1; O2SAT 95; Ht 170.2 cm; Wt 120.9 kg
[2017-06-28] MEDS ORDERED: KETOROLAC TROMETHAMINE 30 MG/ML VIAL IV STA (13:24)
--- NOTE | 2017-06-28 14:09 | DIAGNOSTIC IMAGING REPORT ---
CHEST ONE VIEW PORTABLE CLINICAL HISTORY: Fever. Sepsis. Chest pain. COMPARISON STUDY: Chest CT January 25, 2017 and chest radiograph May 03, 2017. FINDINGS: Lung volumes are normal. No pneumothorax or pleural effusion is present. There is no consolidation to suggest pneumonia. Cardiomediastinal silhouette is normal. Pulmonary vascularity is normal. IMPRESSION: No acute cardiopulmonary findings. Electronically signed by: Ugo Price M.D. 06/28/2017 2:07 PM Dictated Date/Time: 06/28/2017 2:07 PM
[2017-06-28] MEDS ORDERED: POTA20TA16 PO (14:11)
[2017-06-28] MEDS ORDERED: CLON0.5T3 PO (14:11)
[2017-06-28] MEDS ORDERED: LAMO25TA PO (14:11)
[2017-06-28] MEDS ORDERED: NRN600 PO (14:11)
[2017-06-28] MEDS ORDERED: LITH600C PO (14:11)
[2017-06-28] MEDS ORDERED: LURA1TAB PO (14:11)
[2017-06-28] MEDS ORDERED: CLON1TAB3 PO (14:11)
[2017-06-28] MEDS ORDERED: AMLO-110 PO (14:11)
[2017-06-28] MEDS ORDERED: CETI10TA84 PO (14:12)
[2017-06-28 14:23] LABS: BLOOD UREA NITROGEN 8 mg/dl (7-18); BUN/CREATININE RATIO 7.8 (10-20); CALCIUM 10.5 mg/dl (8.5-10.1); CARBON DIOXIDE 22 mmol/L (21-32); CHLORIDE 108 mmol/L (98-107); GLUCOSE 96 mg/dl (70-99); POTASSIUM 3.7 mmol/L (3.5-5.1); SODIUM 140 mmol/L (136-145)
[2017-06-28 14:27] LABS: HEMATOCRIT 39.9 % (37-47); MEAN CELL VOLUME 81.8 fL (80-100); MEAN CORPUSCULAR HEMOGLOBIN 27.5 pg (25-34); MEAN CORPUSCULAR HGB CONC 33.6 g/dl (32-36); MEAN PLATELET VOLUME 9.9 fL (7.4-10.4); PLATELET COUNT 359 K/uL (130-400); RED BLOOD COUNT 4.88 M/uL (4.2-5.4); WHITE BLOOD COUNT 11.23 K/uL (4.8-10.8)
[2017-06-28 15:01] LABS: BASO % 0.6 %; BASO ABS # 0.07 K/uL (0-0.2); COMPLETE YES; EOS % 4.9 %; IG% 0.3 %; LYMPH % 45.9 %; LYMPH ABS # 5.15 K/uL (1.2-3.4); MONO % 5.5 %; NEUT % 42.8 %
--- NOTE | 2017-06-28 15:40 | EMERGENCY ROOM VISIT NOTE ---
History Report prepared by Scribreyna: Pieter Jensen Under the Supervision of: Dr. Leodan Riley D.O. First contact with patient: 13:19 Chief Complaint: CHEST PAIN Stated Complaint: CHEST PAIN Nursing Triage Summary: Patient arrives via ALS from home with complaints of waking up around 0700 and having a cramping feeling in left upper chest that radiates into left side of neck. Rating her pain 3/10, the pain comes and goes. Currently pain free. PMH: biplolar, anxiety, insulin resistance. History of Present Illness The patient is a 41 year old female who presents to the Emergency Room by EMS with complaints of intermittent left sided chest pain beginning 6.5 hours ago. She describes her pain as "cramping", and states it feels like a muscle spasm. She states that her pain radiates into her left neck. The patient rates her pain as a 3/10 in severity. She states that her pain occurs roughly every 10-15 minutes and lasts for a few seconds at a time. She denies any modifying factors. The patient notes that she woke up with her symptoms. Source of History: patient Onset: 6.5 hours ago Symptom Intensity: 3/10 Quality: cramping Timing: intermittent Modifying Factors (Worsening): other (none) Modifying Factors (Relieving): other (none) Review of Systems See HPI for pertinent positives & negatives. A total of 10 systems reviewed and were otherwise negative. Past Medical & Surgical Medical Problems: (1) Anxiety (2) Anxiety (3) Bipolar 1 disorder (4) Bipolar disorder (5) Depression (6) Depression (7) Dysmetabolic Syndrome X (8) Esophageal Reflux (9) Headache (10) HTN (hypertension) (11) HTN (hypertension) (12) Hyperinsulinemia (13) Hypersomnia with sleep apnea (14) Kidney disease (15) [place] toxicity (16) Morbid Obesity (17) Obesity, morbid, BMI 40.0-49.9 (18) PCOS (polycystic ovarian syndrome) (19) Seizure disorder Surgical Problems: (1) H/O dilation and curettage (2) Hx of cholecystectomy (3) Hx of cholecystectomy (4) S/p removal of ruptured ovarian cyst Family History Depression FATHER Diabetes mellitus MOTHER FH: GA (myocardial infarction) FH: bipolar disorder FATHER SON FH: cancer MOTHER (endometrial CA) FH: gallbladder disease FH: heart disease MOTHER Hypertension MOTHER Seizures Social History Smoking Status: Current Every Day Smoker Alcohol Use: none Drug Use: none Marital Status: Housing Status: lives with family Occupation Status: employed Current/Historical Medications Scheduled Amlodipine (Norvasc), 5 MG PO BID Aspirin (Aspirin Ec), 325 MG PO QAM Cetirizine (Zyrtec), 10 MG PO DAILY Cholecalciferol (Vitamin D3), 1,000 INTER.UNIT PO DAILY Clonazepam (Klonopin), 1 MG PO BID Clonazepam (Klonopin), 0.5 MG PO DAILY Fish Oil (Nelson-3), 1 CAP PO DAILY Gabapentin (Gabapentin), 600 MG PO TID Lamotrigine (Lamotrigine), 100 MG PO HS Lamotrigine (Lamictal), 50 MG PO QAM Lisinopril (Lisinopril), 10 MG PO DAILY [place] Carbonate ([place] Carbonate), 1,200 MG PO HS Lurasidone Hcl (Latuda), 30 MG PO HS Metformin Hcl (Glucophage), 1,000 MG PO BIDM Multivitamin (Multivitamin), 1 TAB PO DAILY Omeprazole (Prilosec), 20 MG PO BID Potassium Ext Rel (Klor-Con), 40 MEQ PO HS Probiotic Product (Probiotic), 1 TAB PO DAILY Allergies Coded Allergies: No Known Allergies (Verified , 06/28/17) Physical Exam Vital Signs Date Time Temp Pulse Resp B/P (MAP) Pulse Ox O2 Delivery O2 Flow Rate FiO2 06/28/17 14:53 74 16 100/65 95 06/28/17 13:33 69 18 106/63 95 Room Air 06/28/17 13:04 78 06/28/17 13:02 95 Room Air 06/28/17 12:58 95 Room Air 06/28/17 12:58 37.1 82 16 120/72 96 Room Air Physical Exam CONSTITUTIONAL/VITAL SIGNS: Reviewed / noted above. GENERAL: Non-toxic in appearance. INTEGUMENTARY: Warm, dry, and [place]. HEAD: Normocephalic. EYES: without scleral icterus or trauma. ENT/OROPHARYNX: clear and moist. LYMPHADENOPATHY/NECK: Is supple without lymphadenopathy or meningismus. RESPIRATORY: Lungs clear and equal. CARDIOVASCULAR: Regular rate and rhythm. GI/ABDOMEN: Soft and nontender. No organomegaly or pulsatile mass. No rebound or guarding. Normal bowel sounds. EXTREMITIES: Warm and well perfused. BACK: No CVA tenderness. NEUROLOGICAL: Intact without focal deficits. PSYCHIATRIC: normal affect. MUSCULOSKELETAL: Normally developed with good muscle tone. Medical Decision & Procedures ER Provider Diagnostic Interpretation: X ray results and stated below per my interpretation and radiology interpretation. CHEST ONE VIEW PORTABLE FINDINGS: Lung volumes are normal. No pneumothorax or pleural effusion is present. There is no consolidation to suggest pneumonia. Cardiomediastinal silhouette is normal. Pulmonary vascularity is normal. IMPRESSION: No acute cardiopulmonary findings. Electronically signed by: Ugo Price M.D. 06/28/2017 2:07 PM Laboratory Results 06/28/17 12:32 Red Blood Count 4.88, Mean Corpuscular Volume 81.8, Mean Corpuscular Hemoglobin 27.5, Mean Corpuscular Hemoglobin Concent 33.6, Mean Platelet Volume 9.9, Neutrophils (%) (Auto) 42.8, Lymphocytes (%) (Auto) 45.9, Monocytes (%) (Auto) 5.5, Eosinophils (%) (Auto) 4.9, Basophils (%) (Auto) 0.6, Neutrophils # (Auto) 4.81, Lymphocytes # (Auto) 5.15, Monocytes # (Auto) 0.62, Eosinophils # (Auto) 0.55, Basophils # (Auto) 0.07 06/28/17 12:32 Test 06/28/17 12:32 White Blood Count 11.23 K/uL (4.8-10.8) Red Blood Count 4.88 M/uL (4.2-5.4) Hemoglobin 13.4 g/dL (12.0-16.0) Hematocrit 39.9 % (37-47) Mean Corpuscular Volume 81.8 fL (80-100) Mean Corpuscular Hemoglobin 27.5 pg (25-34) Mean Corpuscular Hemoglobin Concent 33.6 g/dl (32-36) Platelet Count 359 K/uL (130-400) Mean Platelet Volume 9.9 fL (7.4-10.4) Neutrophils (%) (Auto) 42.8 % Lymphocytes (%) (Auto) 45.9 % Monocytes (%) (Auto) 5.5 % Eosinophils (%) (Auto) 4.9 % Basophils (%) (Auto) 0.6 % Neutrophils # (Auto) 4.81 K/uL (1.4-6.5) Lymphocytes # (Auto) 5.15 K/uL (1.2-3.4) Monocytes # (Auto) 0.62 K/uL (0.11-0.59) Eosinophils # (Auto) 0.55 K/uL (0-0.5) Basophils # (Auto) 0.07 K/uL (0-0.2) RDW Standard Deviation 45.7 fL (36.4-46.3) RDW Coefficient of Variation 15.4 % (11.5-14.5) Immature Granulocyte % (Auto) 0.3 % Immature Granulocyte # (Auto) 0.03 K/uL (0.00-0.02) Anion Gap 10.0 mmol/L (3-11) Est Creatinine Clear Calc Drug Dose 98.7 ml/min Estimated GFR () 80.5 Estimated GFR (Non- 69.4 BUN/Creatinine Ratio 7.8 (10-20) Calcium Level 10.5 mg/dl (8.5-10.1) Troponin I < 0.015 ng/ml (0-0.045) Laboratory results as stated above per my review. Medications Administered Medications (Trade) Dose Ordered Sig/Amanda Route Start Time Stop Time Status Last Admin Dose Admin Ketorolac Tromethamine (Toradol Inj) 30 mg NOW STAT IV 06/28/17 13:24 06/28/17 13:26 DC 06/28/17 13:33 30 MG ECG Indication: chest pain Rate (beats per minute): 80 Rhythm: normal sinus Findings: no acute ischemic change, no ectopy ED Course 1320: Previous medical records were reviewed. The patient was evaluated in room B6. A complete history and physical examination was performed. 1324: Ordered Toradol Inj 30 mg IV. 1540: On reevaluation, the patient is resting comfortably. I discussed the results and findings with the patient. She verbalized agreement of the treatment plan. She was discharged home. Medical Decision The differential was considered includes acute myocardial infarction, acute coronary syndrome, myocarditis, pericarditis, pericardial effusions/tamponade, esophageal perforation, thoracic aortic dissection, pulmonary embolism, pneumonia, pneumothorax, pancreatitis, shingles, acute cholecystitis, perforated abdominal viscus. This is a 41-year-old female who presents to the ED with a chief complaint of chest pain. The patient states that her symptoms started at 7 AM. She describes as a crampy intermittent pain on the left side the last for about 2 seconds. It comes and goes about every 10-15 minutes. She was not in pain during her ED evaluation but did have a brief episode where she had what she described as a spasm in the chest. Her vital signs are normal. Physical exam was normal. EKG shows normal sinus rhythm. CBC and chemistry panel was unremarkable. Troponin is negative. Chest x-ray did not show acute disease. The patient was told results the test per cheese felt stable for discharge. She was given IV Toradol for pain. Medication Reconcilliation Current Medication List: was personally reviewed by me Blood Pressure Screening Patient's blood pressure: Normal blood pressure Blood pressure disposition: Did not require urgent referral Impression Primary Impression: Left sided chest pain Scribe Attestation The scribe's documentation has been prepared under my direction and personally reviewed by me in its entirety. I confirm that the note above accurately reflects all work, treatment, procedures, and medical decision making performed by me. Departure Information Dispostion Home / Self-Care Referrals Ingrid Arthur D.O. (PCP) Patient Instructions Chest Pain - [facility], [facility] Additional Instructions Follow-up with your doctor for further care and evaluation in 1-2 days. Return to the emergency department for worsening or new symptoms or any concerns. You have been examined and treated today on an emergency basis only. This is not a substitute for, or an effort to provide, complete comprehensive medical care. It is impossible to recognize and treat all injuries or illnesses in a single emergency department visit. It is therefore important that you follow up closely with your doctor. Call as soon as possible for an appointment.
[2017-06-28 16:06] VITALS: BP 124/79; PULSE 81; O2SAT 96
== END 2017-06-28 16:08 | disposition home or self-care (01) ==
LOC: EDBD 12:51 → C.EDB 12:52
DX: R07.9 Chest pain, unspecified (principal); F41.9 Anxiety disorder, unspecified; F31.9 Bipolar disorder, unspecified; F32.9 Major depressive disorder, single episode, unspecified; E88.81 Metabolic syndrome and other insulin resistance; K21.9 Gastro-esophageal reflux disease without esophagitis; I10 Essential (primary) hypertension; G47.10 Hypersomnia, unspecified; G47.30 Sleep apnea, unspecified; E66.01 Morbid (severe) obesity due to excess calories; G40.909 Epilepsy, unspecified, not intractable, without status epilepticus; F17.200 Nicotine dependence, unspecified, uncomplicated; Z79.82 Long term (current) use of aspirin; Z83.3 Family history of diabetes mellitus; Z81.8 Family history of other mental and behavioral disorders; Z82.49 Family history of ischemic heart disease and other diseases of the circulatory system; Z80.49 Family history of malignant neoplasm of other genital organs; Z82.0 Family history of epilepsy and other diseases of the nervous system

== ENCOUNTER 2024-06-30 01:16 | Inpatient (IN) ==
[2024-06-30 02:07] LABS: Basophils # (auto) 0.07 K/uL (0.00-0.20); Basophils % (auto) 0.3 %; Eosinophils # (auto) 0.06 K/uL (0.00-0.50); Eosinophils % (auto) 0.3 %; Hematocrit (blood only) 49.9 % (37.0-47.0); Hemoglobin 16.3 g/dl (12.0-16.0); Immature Granulocytes # (auto) 0.32 K/uL (0.01-0.20); Immature Granulocytes % (auto) 1.6 %; Lymphocytes # (auto) 2.47 K/uL (1.20-3.40); Lymphocytes % (auto) 12.2 %; Mean Corpuscular Hemoglobin 29.7 pg (25.0-34.0); Mean Corpuscular Hgb Conc 32.7 g/dL (32.0-36.0); Mean Corpuscular Volume 91.1 fL (80.0-100.0); Mean Platelet Volume 9.2 fL (9.4-12.4); Monocytes # (auto) 0.86 K/uL (0.11-0.59); Monocytes % (auto) 4.2 %; Neutrophils # (auto) 16.47 K/uL (1.40-6.50); Neutrophils % (auto) 81.4 %; Platelet Count 440 K/uL (130-400); RDW Coefficient of Variation 15.1 % (11.5-14.5); RDW Standard Deviation 50.6 fL (36.4-46.3); Red Blood Count 5.48 M/uL (4.20-5.40); White Blood Count 20.25 K/ul (4.8-10.8)
[2024-06-30] MEDS: SODIUM CHLORIDE 0.9% 1,000 ML IV ONE ×3 (02:24→04:32)
[2024-06-30 02:27] LABS: Albumin Globulin Ratio 1.3 (0.9-2); Albumin Level 4.2 gm/dl (3.4-5.0); BUN Creatinine Ratio 10.3 (10-20); Bilirubin,Total 0.4 mg/dl (0.2-1.0); Calcium 9.8 mg/dl (8.6-10.3); Creatinine Clr Calc Pharmacy 19.5 ml/min; Globulin 3.2 gm/dl (2.5-4.0); Total Protein 7.4 gm/dl (6.0-8.3)
[2024-06-30 02:32] LABS: Troponin I High Sensitivity 5.1 pg/ml (0-14)
[2024-06-30 02:37] LABS: Appearance Urine Cloudy (Clear); Bacteria Urine Automated 3+ (None Seen); Bilirubin Urine Negative (Negative); Blood Urine Negative (Negative); Color Urine Yellow; Epithelial Cell Urine Auto 0-2 /hpf (0-2); Glucose Urine UA Negative (Negative); Ketones Urine Trace (Negative); Leukocyte Esterase Urine 3+ (Negative); Nitrite Urine Negative (Negative); Protein Urine 2+ (Negative); RBC Urine Automated 0-2 /hpf (0-2); Specific Gravity Urine 1.017 (1.000-1.030); Urobilinogen Urine Negative (Negative); WBC Urine Automated >50 /hpf (0-5); pH Urine 5.5 (4.5-7.5)
--- NOTE | 2024-06-30 02:45 | Emergency Department Note ---
Impression & Plan UTI (urinary tract infection), Sepsis, Hypoglycemia, Affton toxicity, Hypotension, COVID-19 ED Provider Note NAME: ANGELA GARZA AGE: 48 SEX: F : 1975 ARRIVES VIA: Ambulance INFORMANT: Patient, ED PROVIDER(S): David Barney MD CHIEF COMPLAINT: Altered mental status HPI: This is a 48-year-old female presenting for confusion. Patient for the past 1 week has had symptoms of fatigue, confusion, difficulty with the words. She notes she feels very fatigued and goes to sleep throughout most of the day. Eating drinking much less. She notes she feels out of sorts and confused. Her states that she is not herself and has been sleeping most of the day. Otherwise had nausea without vomiting. She had be hypoglycemic today with initial glucose in the 30s. Was given glucose with improvement. Otherwise patient does take metformin and glipizide for her diabetes ROS: See above HPI for pertinent positives & negatives. A total of 10 systems reviewed and were otherwise negative. PHYSICAL EXAMINATION: General: Fatigued, pale Head: Normocephalic and atraumatic Eyes: Normal inspection, extraocular muscles intact Ear, nose, throat: Normal external exam Neck: Normal range of motion Respiratory: lungs clear to auscultation bilaterally Cardiovascular: Regular rate/rhythm, no murmur GI: soft, nontender, no guarding or rebound Extremities: nontender, moves all extremities Neuro: The patient awake and alert, appropriately conversive, no focal deficits, symmetric faces Skin: Warm, dry, and intact MEDICAL DECISION MAKING: This is a 48-year-old female presenting for confusion. Patient appears unwell at this time, nontoxic however. Her vital signs are reviewed and she is hypotensive, hypothermic. Consider lithium toxicity, sepsis, pneumonia. Patient has no current neurologic deficits. -Patient has significant white count at this time of over 20 and has an elevated hemoglobin concerning for dehydration. Otherwise she is hyponatremic with a significant creatinine elevation of 4.36, significant for dehydration. Urinalysis reveals signs of UTI. Consider urosepsis as most likely source at this time. Will give cefepime for broad-spectrum coverage as well as UTI coverage patient is COVID-19 positive at this time. -Chest Xray independently interpreted by me showing no pneumothorax, focal opacity, or pleural effusions. -Patient and family made aware of current findings and need for admission. She has been somewhat responsive to fluid boluses. She is warming up with the bear hugger -Patient is found to be hypoglycemic again. Will give D50 at this time. -Care discussed with Dr. Duran for admission of her suspected urosepsis, lithium toxicity, NADIRA, dehydration Differential diagnosis: Urosepsis, DM toxicity, sepsis, pneumonia ER treatment provided: See below Diagnostics interpreted by me: ECG: ECG independently interpreted by me with normal sinus rhythm, rate of 83, normal axis, normal HI, normal QRS, normal QTc, no ST segment elevations consistent with STEMI criteria Cardiac Monitoring: An order was placed for continuous cardiac monitoring. The monitor shows a rate of 82 with sinus rhythm. Laboratory studies: As stated above and show below. Imaging studies: See below. Critical Care Note: I have personally spent 50 minutes of critical care time in the direct management of this patient. This includes bedside care, interpretation of diagnostic studies, and testing, discussion with consultants, patient, and family members, and other required patient management activities. This 50 minutes is in excess of all separately billable procedures. Past Med/Surg History Problem List COVID-19 (Acute) Hypotension (Acute) Affton toxicity (Acute) Hypoglycemia (Acute) Sepsis (Acute) UTI (urinary tract infection) (Acute) HTN (hypertension) (Acute) Hyperinsulinemia (Chronic) Hypersomnia with sleep apnea (Chronic) Bipolar disorder (Chronic) Depression (Chronic) Seizure disorder (Chronic) Anxiety (Chronic) Obesity, morbid, BMI 40.0-49.9 (Chronic) Hx of cholecystectomy (Chronic) H/O dilation and curettage (Chronic) Social History (Updated 12/04/18 @ 18:41 by Katherine Murry) Smoking Status: Current every day smoker Tobacco Type: Cigarettes Preferred Language: Cypriot Current Living Situation: Family Feels Safe at Home: Yes Allergies Allergies Allergy/AdvReac Type Severity Reaction Status Date / Time No Known Allergies Allergy Verified 06/28/17 14:15 Home Meds Home Medications Medication Instructions Recorded Confirmed OMEPRAZOLE (PRILOSEC) 20 mg PO BID ##0 08/10/12 06/30/24 METFORMIN HCL (GLUCOPHAGE) 1,000 mg PO BIDM ##0 06/08/15 06/30/24 Fish Oil ([place]-3) 1 cap PO DAILY #0 caps 01/24/17 06/30/24 Multivitamin 1 tab PO DAILY #0 tabs 01/24/17 06/30/24 PROBIOTIC PRODUCT (PROBIOTIC) 1 tab PO DAILY ##0 01/24/17 06/30/24 ASPIRIN (ASPIRIN EC) 325 mg PO QAM ##0 05/03/17 06/30/24 CHOLECALCIFEROL (VITAMIN D3) 2,000 inter.unit PO DAILY #0 tabs 05/03/17 06/30/24 LAMOTRIGINE 100 mg PO BID ##0 05/03/17 06/30/24 Lisinopril 10 mg PO DAILY ##0 05/03/17 06/30/24 Amlodipine (Norvasc) 5 mg PO ONCE ##0 06/28/17 06/30/24 Cetirizine (Zyrtec) 10 mg PO DAILY ##0 06/28/17 06/30/24 Clonazepam (Klonopin) 0.5 mg PO BID ##0 06/28/17 06/30/24 Clonazepam (Klonopin) 25 mg PO BID ##0 06/28/17 06/30/24 Gabapentin 600 mg PO TID ##0 06/28/17 06/30/24 LURASIDONE HCL (LATUDA) 100 mg PO HS ##0 06/28/17 06/30/24 Affton Carbonate 1,150 mg PO HS ##0 06/28/17 06/30/24 Potassium Ext Rel (Klor-Con) 40 meq PO HS ##0 06/28/17 06/30/24 Results & Data (ED) Vital Signs Vital Signs - 24 hr 06/30/24 01:36 06/30/24 01:47 06/30/24 02:01 Temperature 34 C L Temperature Source Rectal Pulse Rate 66 58 L 58 L Respiratory Rate 16 16 Blood Pressure 90/55 L 89/56 L Blood Pressure Mean 66 63 Pulse Oximetry 96 96 Sepsis Recent Fever Within 48 Hours No Sepsis New/Unexplained Change in Mental Status N/A Sepsis Action Taken by Nursing Physician Notified 06/30/24 02:11 06/30/24 03:34 06/30/24 04:20 Temperature 34 C L 35.2 C L Temperature Source Rectal Rectal Pulse Rate 65 Respiratory Rate 23 Blood Pressure 96/47 L Blood Pressure Mean 49 Pulse Oximetry 91 Sepsis Recent Fever Within 48 Hours Sepsis New/Unexplained Change in Mental Status Sepsis Action Taken by Nursing 06/30/24 05:00 06/30/24 05:35 06/30/24 06:00 Temperature Temperature Source Pulse Rate 65 74 76 Respiratory Rate 14 18 Blood Pressure 102/46 L 101/50 L Blood Pressure Mean 64 78 Pulse Oximetry 99 91 Sepsis Recent Fever Within 48 Hours Sepsis New/Unexplained Change in Mental Status Sepsis Action Taken by Nursing 06/30/24 06:05 06/30/24 07:00 06/30/24 07:01 Temperature 36.1 C L 36.8 C Temperature Source Rectal Pulse Rate 87 86 Respiratory Rate 21 19 Blood Pressure 110/49 L 104/62 Blood Pressure Mean 69 78 Pulse Oximetry 95 96 Sepsis Recent Fever Within 48 Hours Sepsis New/Unexplained Change in Mental Status Sepsis Action Taken by Nursing Laboratory Data 06/30/24 01:43 06/30/24 04:49 Lab Results 06/30/24 06/30/24 06/30/24 Range/Units 01:43 02:00 04:17 WBC 20.25 H (4.8-10.8) K/ul RBC 5.48 H (4.20-5.40) M/uL Hgb 16.3 H (12.0-16.0) g/dl Hct 49.9 H (37.0-47.0) % MCV 91.1 (80.0-100.0) fL MCH 29.7 (25.0-34.0) pg MCHC 32.7 (32.0-36.0) g/dL RDW Std Deviation 50.6 H (36.4-46.3) fL RDW Coeff of Naz 15.1 H (11.5-14.5) % Plt Count 440 H (130-400) K/uL MPV 9.2 L (9.4-12.4) fL Immature Gran % (Auto) 1.6 % Neut % (Auto) 81.4 % Lymph % (Auto) 12.2 % Wheeler % (Auto) 4.2 % Eos % (Auto) 0.3 % Baso % (Auto) 0.3 % Neut # (Auto) 16.47 H (1.40-6.50) K/uL Lymph # (Auto) 2.47 (1.20-3.40) K/uL Wheeler # (Auto) 0.86 H (0.11-0.59) K/uL Eos # (Auto) 0.06 (0.00-0.50) K/uL Baso # (Auto) 0.07 (0.00-0.20) K/uL Immature Gran # (Auto) 0.32 H (0.01-0.20) K/uL VBG pH (7.36-7.41) VBG pCO2 (38-50) mmHg VBG pO2 mmHg VBG HCO3 mmol/L VBG O2 Saturation % VBG Base Excess mEq/L Sodium 130 L (136-145) mmol/L Potassium 4.0 (3.5-5.1) mmol/L Chloride 104 (98-107) mmol/L Carbon Dioxide 18 L (21-32) mmol/L Anion Gap 8 (3-11) BUN 45 H (6-23) mg/dl Creatinine 4.36 H (0.6-1.2) mg/dl Est Cr Clr Drug Dosing 19.5 ml/min eGFR 11.80 BUN/Creatinine Ratio 10.3 (10-20) Glucose 85 (70-99(Fasting)) mg/dl POC Glucose 82 37 L* (70-99) mg/dl Estimat Average Glucose 146 mg/dl Hemoglobin A1c 6.7 H (4.5-5.6) % Lactate (0.4-2.0) mmol/L Calcium 9.8 (8.6-10.3) mg/dl Total Bilirubin 0.4 (0.2-1.0) mg/dl AST 11 L (13-39) U/L ALT 10 (7-52) U/L Alkaline Phosphatase 110 H (34-104) U/L Troponin I High Sens 5.1 (0-14) pg/ml Total Protein 7.4 (6.0-8.3) gm/dl Albumin 4.2 (3.4-5.0) gm/dl Globulin 3.2 (2.5-4.0) gm/dl Albumin/Globulin Ratio 1.3 (0.9-2) Lipase 27 (11-82) U/L TSH 1.047 (0.300-4.500) uIu/ml Urine Color Yellow Urine Appearance Cloudy A (Clear) Urine pH 5.5 (4.5-7.5) Ur Specific [place] 1.017 (1.000-1.030) Urine Protein 2+ H (Negative) Urine Glucose (UA) Negative (Negative) Urine Ketones Trace H (Negative) Urine Blood Negative (Negative) Urine Nitrite Negative (Negative) Urine Bilirubin Negative (Negative) Urine Urobilinogen Negative (Negative) Ur Leukocyte Esterase 3+ H (Negative) Urine WBC (Auto) >50 H (0-5) /hpf Urine RBC (Auto) 0-2 (0-2) /hpf U Hyaline Cast (Auto) 3-5 H (0-2) /lpf U Epithel Cells (Auto) 0-2 (0-2) /hpf Urine Bacteria (Auto) 3+ H (None Seen) Stl C. cayetanensis PCR (NotDetected) Stool Rotavirus A PCR (NotDetected) Stl Adenov F 40/41 PCR (NotDetected) Stool Astrovirus (PCR) (NotDetected) Stool Campylobacter PCR (NotDetected) Stl C. diff Tox B Gene (Neg) Stool Cryptosporidium PCR (NotDetected) Stl E.coli Shiga Tox PCR (NotDetected) Stl Enterotoxigenic E PCR (NotDetected) Stool EPEC (PCR) (NotDetected) Stool EAEC (PCR) (NotDetected) Stl E. histolytica PCR (NotDetected) Stool Giardia Lamblia PCR (NotDetected) Stool Salmonella PCR (NotDetected) Stool Sapovirus (PCR) (NotDetected) Stl P. shigelloides PCR (NotDetected) Stl Shigella/EIEC PCR (NotDetected) St Y.enterocolitica PCR (NotDetected) Stool Vibrio (PCR) (NotDetected) Stl Vibrio cholerae PCR (NotDetected) Stl Norovirus GI/GII PCR (NotDetected) Urine Opiates Screen Neg (Neg) Ur Methadone, Qual Neg (Neg) Urine Fentanyl Screen Neg (Neg) Urine Barbiturates Neg (Neg) Ur Phencyclidine (PCP) Neg (Neg) U Amphetamin/Meth Scrn Neg (Neg) MDMA (Ecstasy) Screen Neg (Neg) U Benzodiazepines Scrn Neg (Neg) Aff[place] 1.9 H (0.6-1.2) mmol/L Ur Cocaine Metabolite Neg (Neg) U Marijuana (THC) Screen Neg (Neg) Adenovirus (PCR) Not Detected (NotDetected) B. pertussis DNA (PCR) Not Detected (NotDetected) B.parapertussis DNA PCR Not Detected (NotDetected) C. pneumoniae DNA (PCR) Not Detected (NotDetected) Coronavirus OC43 (PCR) Not Detected (NotDetected) Coronavirus HKU1 (PCR) Not Detected (NotDetected) Coronavirus 229E (PCR) Not Detected (NotDetected) SARS-CoV-2 (PCR) DETECTED A (NotDetected) Coronavirus NL63 (PCR) Not Detected (NotDetected) Human Metapneumovir PCR Not Detected (NotDetected) Influenza Type A (PCR) Not Detected (NotDetected) Influenza Type B (PCR) Not Detected (NotDetected) M. pneumoniae (PCR) Not Detected (NotDetected) Parainfluenza 1 (PCR) Not Detected (NotDetected) Parainfluenza 2 (PCR) Not Detected (NotDetected) Parainfluenza 3 (PCR) Not Detected (NotDetected) Parainfluenza 4 (PCR) Not Detected (NotDetected) RSV (PCR) Not Detected (NotDetected) Entero/Rhino (PCR) Not Detected (NotDetected) 06/30/24 06/30/24 06/30/24 Range/Units 04:48 04:49 04:58 WBC (4.8-10.8) K/ul RBC (4.20-5.40) M/uL Hgb (12.0-16.0) g/dl Hct (37.0-47.0) % MCV (80.0-100.0) fL MCH (25.0-34.0) pg MCHC (32.0-36.0) g/dL RDW Std Deviation (36.4-46.3) fL RDW Coeff of Naz (11.5-14.5) % Plt Count (130-400) K/uL MPV (9.4-12.4) fL Immature Gran % (Auto) % Neut % (Auto) % Lymph % (Auto) % Wheeler % (Auto) % Eos % (Auto) % Baso % (Auto) % Neut # (Auto) (1.40-6.50) K/uL Lymph # (Auto) (1.20-3.40) K/uL [place] # (Auto) (0.11-0.59) K/uL Eos # (Auto) (0.00-0.50) K/uL Baso # (Auto) (0.00-0.20) K/uL Immature Gran # (Auto) (0.01-0.20) K/uL VBG pH 7.13 L (7.36-7.41) VBG pCO2 49 (38-50) mmHg VBG pO2 21 mmHg VBG HCO3 16 mmol/L VBG O2 Saturation < 60.0 % VBG Base Excess -12.8 mEq/L Sodium 132 L (136-145) mmol/L Potassium 3.5 (3.5-5.1) mmol/L Chloride 108 H (98-107) mmol/L Carbon Dioxide 17 L (21-32) mmol/L Anion Gap 7 (3-11) BUN 43 H (6-23) mg/dl Creatinine 4.10 H (0.6-1.2) mg/dl Est Cr Clr Drug Dosing 20.7 ml/min eGFR 12.70 BUN/Creatinine Ratio 10.5 (10-20) Glucose 110 H (70-99(Fasting)) mg/dl POC Glucose 123 H (70-99) mg/dl Estimat Average Glucose mg/dl Hemoglobin A1c (4.5-5.6) % Lactate 1.4 (0.4-2.0) mmol/L Calcium 8.8 (8.6-10.3) mg/dl Total Bilirubin (0.2-1.0) mg/dl AST (13-39) U/L ALT (7-52) U/L Alkaline Phosphatase (34-104) U/L Troponin I High Sens (0-14) pg/ml Total Protein (6.0-8.3) gm/dl Albumin (3.4-5.0) gm/dl Globulin (2.5-4.0) gm/dl Albumin/Globulin Ratio (0.9-2) Lipase (11-82) U/L TSH (0.300-4.500) uIu/ml Urine Color Urine Appearance (Clear) Urine pH (4.5-7.5) Ur Specific [place] (1.000-1.030) Urine Protein (Negative) Urine Glucose (UA) (Negative) Urine Ketones (Negative) Urine Blood (Negative) Urine Nitrite (Negative) Urine Bilirubin (Negative) Urine Urobilinogen (Negative) Ur Leukocyte Esterase (Negative) Urine WBC (Auto) (0-5) /hpf Urine RBC (Auto) (0-2) /hpf U Hyaline Cast (Auto) (0-2) /lpf U Epithel Cells (Auto) (0-2) /hpf Urine Bacteria (Auto) (None Seen) Stl C. cayetanensis PCR Not Detected (NotDetected) Stool Rotavirus A PCR Not Detected (NotDetected) Stl Adenov F 40/41 PCR Not Detected (NotDetected) Stool Astrovirus (PCR) Not Detected (NotDetected) Stool Campylobacter PCR DETECTED A* (NotDetected) Stl C. diff Tox B Gene Negative Cdiff Gene (Neg) Stool Cryptosporidium PCR Not Detected (NotDetected) Stl E.coli Shiga Tox PCR Not Detected (NotDetected) Stl Enterotoxigenic E PCR Not Detected (NotDetected) Stool EPEC (PCR) DETECTED A* (NotDetected) Stool EAEC (PCR) Not Detected (NotDetected) Stl E. histolytica PCR Not Detected (NotDetected) Stool Giardia Lamblia PCR Not Detected (NotDetected) Stool Salmonella PCR Not Detected (NotDetected) Stool Sapovirus (PCR) Not Detected (NotDetected) Stl P. shigelloides PCR Not Detected (NotDetected) Stl Shigella/EIEC PCR Not Detected (NotDetected) St Y.enterocolitica PCR Not Detected (NotDetected) Stool Vibrio (PCR) Not Detected (NotDetected) Stl Vibrio cholerae PCR Not Detected (NotDetected) Stl Norovirus GI/GII PCR Not Detected (NotDetected) Urine Opiates Screen (Neg) Ur Methadone, Qual (Neg) Urine Fentanyl Screen (Neg) Urine Barbiturates (Neg) Ur Phencyclidine (PCP) (Neg) U Amphetamin/Meth Scrn (Neg) MDMA (Ecstasy) Screen (Neg) U Benzodiazepines Scrn (Neg) [place] 1.8 H (0.6-1.2) mmol/L Ur Cocaine Metabolite (Neg) U Marijuana (THC) Screen (Neg) Adenovirus (PCR) (NotDetected) B. pertussis DNA (PCR) (NotDetected) B.parapertussis DNA PCR (NotDetected) C. pneumoniae DNA (PCR) (NotDetected) Coronavirus OC43 (PCR) (NotDetected) Coronavirus HKU1 (PCR) (NotDetected) Coronavirus 229E (PCR) (NotDetected) SARS-CoV-2 (PCR) (NotDetected) Coronavirus NL63 (PCR) (NotDetected) Human Metapneumovir PCR (NotDetected) Influenza Type A (PCR) (NotDetected) Influenza Type B (PCR) (NotDetected) M. pneumoniae (PCR) (NotDetected) Parainfluenza 1 (PCR) (NotDetected) Parainfluenza 2 (PCR) (NotDetected) Parainfluenza 3 (PCR) (NotDetected) Parainfluenza 4 (PCR) (NotDetected) RSV (PCR) (NotDetected) Entero/Rhino (PCR) (NotDetected) 06/30/24 Range/Units 07:21 WBC (4.8-10.8) K/ul RBC (4.20-5.40) M/uL Hgb (12.0-16.0) g/dl Hct (37.0-47.0) % MCV (80.0-100.0) fL MCH (25.0-34.0) pg MCHC (32.0-36.0) g/dL RDW Std Deviation (36.4-46.3) fL RDW Coeff of Naz (11.5-14.5) % Plt Count (130-400) K/uL MPV (9.4-12.4) fL Immature Gran % (Auto) % Neut % (Auto) % Lymph % (Auto) % Wheeler % (Auto) % Eos % (Auto) % Baso % (Auto) % Neut # (Auto) (1.40-6.50) K/uL Lymph # (Auto) (1.20-3.40) K/uL [place] # (Auto) (0.11-0.59) K/uL Eos # (Auto) (0.00-0.50) K/uL Baso # (Auto) (0.00-0.20) K/uL Immature Gran # (Auto) (0.01-0.20) K/uL VBG pH (7.36-7.41) VBG pCO2 (38-50) mmHg VBG pO2 mmHg VBG HCO3 mmol/L VBG O2 Saturation % VBG Base Excess mEq/L Sodium (136-145) mmol/L Potassium (3.5-5.1) mmol/L Chloride (98-107) mmol/L Carbon Dioxide (21-32) mmol/L Anion Gap (3-11) BUN (6-23) mg/dl Creatinine (0.6-1.2) mg/dl Est Cr Clr Drug Dosing ml/min eGFR BUN/Creatinine Ratio (10-20) Glucose (70-99(Fasting)) mg/dl POC Glucose 55 L* (70-99) mg/dl Estimat Average Glucose mg/dl Hemoglobin A1c (4.5-5.6) % Lactate (0.4-2.0) mmol/L Calcium (8.6-10.3) mg/dl Total Bilirubin (0.2-1.0) mg/dl AST (13-39) U/L ALT (7-52) U/L Alkaline Phosphatase (34-104) U/L Troponin I High Sens (0-14) pg/ml Total Protein (6.0-8.3) gm/dl Albumin (3.4-5.0) gm/dl Globulin (2.5-4.0) gm/dl Albumin/Globulin Ratio (0.9-2) Lipase (11-82) U/L TSH (0.300-4.500) uIu/ml Urine Color Urine Appearance (Clear) Urine pH (4.5-7.5) Ur Specific [place] (1.000-1.030) Urine Protein (Negative) Urine Glucose (UA) (Negative) Urine Ketones (Negative) Urine Blood (Negative) Urine Nitrite (Negative) Urine Bilirubin (Negative) Urine Urobilinogen (Negative) Ur Leukocyte Esterase (Negative) Urine WBC (Auto) (0-5) /hpf Urine RBC (Auto) (0-2) /hpf U Hyaline Cast (Auto) (0-2) /lpf U Epithel Cells (Auto) (0-2) /hpf Urine Bacteria (Auto) (None Seen) Stl C. cayetanensis PCR (NotDetected) Stool Rotavirus A PCR (NotDetected) Stl Adenov F 40/41 PCR (NotDetected) Stool Astrovirus (PCR) (NotDetected) Stool Campylobacter PCR (NotDetected) Stl C. diff Tox B Gene (Neg) Stool Cryptosporidium PCR (NotDetected) Stl E.coli Shiga Tox PCR (NotDetected) Stl Enterotoxigenic E PCR (NotDetected) Stool EPEC (PCR) (NotDetected) Stool EAEC (PCR) (NotDetected) Stl E. histolytica PCR (NotDetected) Stool Giardia Lamblia PCR (NotDetected) Stool Salmonella PCR (NotDetected) Stool Sapovirus (PCR) (NotDetected) Stl P. shigelloides PCR (NotDetected) Stl Shigella/EIEC PCR (NotDetected) St Y.enterocolitica PCR (NotDetected) Stool Vibrio (PCR) (NotDetected) Stl Vibrio cholerae PCR (NotDetected) Stl Norovirus GI/GII PCR (NotDetected) Urine Opiates Screen (Neg) Ur Methadone, Qual (Neg) Urine Fentanyl Screen (Neg) Urine Barbiturates (Neg) Ur Phencyclidine (PCP) (Neg) U Amphetamin/Meth Scrn (Neg) MDMA (Ecstasy) Screen (Neg) U Benzodiazepines Scrn (Neg) [place] (0.6-1.2) mmol/L Ur Cocaine Metabolite (Neg) U Marijuana (THC) Screen (Neg) Adenovirus (PCR) (NotDetected) B. pertussis DNA (PCR) (NotDetected) B.parapertussis DNA PCR (NotDetected) C. pneumoniae DNA (PCR) (NotDetected) Coronavirus OC43 (PCR) (NotDetected) Coronavirus HKU1 (PCR) (NotDetected) Coronavirus 229E (PCR) (NotDetected) SARS-CoV-2 (PCR) (NotDetected) Coronavirus NL63 (PCR) (NotDetected) Human Metapneumovir PCR (NotDetected) Influenza Type A (PCR) (NotDetected) Influenza Type B (PCR) (NotDetected) M. pneumoniae (PCR) (NotDetected) Parainfluenza 1 (PCR) (NotDetected) Parainfluenza 2 (PCR) (NotDetected) Parainfluenza 3 (PCR) (NotDetected) Parainfluenza 4 (PCR) (NotDetected) RSV (PCR) (NotDetected) Entero/Rhino (PCR) (NotDetected) Administered Medications Lactated Ringer's (Lr) 1,000 mls @ 500 mls/hr IV .Q2H ONE Stop: 06/30/24 07:59 Last Admin: 06/30/24 06:02 Dose: 500 mls/hr Documented By: EDMUNDO Azithromycin 500 mg/ Dextrose 255 mls @ 127.5 mls/hr IV NOW STA Stop: 06/30/24 08:46 Last Admin: 06/30/24 07:24 Dose: 127.5 mls/hr Documented By: JEN Insulin Aspart (Insulin Aspart Per Unit Charge) 0 units SC ACHS [place] Stop: 07/30/24 07:29 Last Admin: 06/30/24 07:32 Dose: Not Given Documented By: JEN Co-signed By: FRANCES Miscellaneous (Carbohydrates For Hypoglycemia ) 15 - 30 gm PO UD PRN PRN Reason: Hypoglycemia Protocol Stop: 07/30/24 06:32 Last Admin: 06/30/24 07:34 Dose: 15 gm Documented By: JEN Discontinued Medications Albuterol (Albut/Ipratrop 3mg/0.5mg Neb 3 Ml Vial) 3 ml NEB NOW STA; Protocol Stop: 06/30/24 06:30 Last Admin: 06/30/24 06:39 Dose: 3 ml Documented By: EDMUNDO Dexamethasone (Dexamethasone Sod Inj 4 Mg/Ml Vial) 10 mg IV NOW STA Stop: 06/30/24 06:30 Last Admin: 06/30/24 06:39 Dose: 10 mg Documented By: EDMUNDO Dextrose (Dextrose 50% 50 Ml Syringe) Confirm Administered Dose 50 ml IV .STK- MED ONE Stop: 06/30/24 04:23 Last Admin: 06/30/24 04:23 Dose: 50 ml Documented By: EDMUNDO Sodium Chloride (Nss) 1,000 mls @ 999 mls/hr IV .Q1H1M ONE Stop: 06/30/24 03:12 Last Infusion: 06/30/24 03:28 Dose: Infused Documented By: Admin: 06/30/24 02:24 Dose: 999 mls/hr Documented By: EDMUNDO Cefepime HCl (Maxipime 2000mg) 2,000 mg in 20 mls @ 5 mls/min IV NOW STA; Protocol Stop: 06/30/24 02:48 Last Admin: 06/30/24 03:24 Dose: 5 mls/min Documented By: EDMUNDO Sodium Chloride (Nss) 1,000 mls @ 999 mls/hr IV .Q1H1M ONE Stop: 06/30/24 04:24 Last Infusion: 06/30/24 04:31 Dose: Infused Documented By: Admin: 06/30/24 03:31 Dose: 999 mls/hr Documented By: EDMUNDO Piperacillin Sod/Tazobactam Sod (Zosyn) 4.5 gm in 100 mls @ 200 mls/hr IV NOW ONE; Protocol Stop: 06/30/24 04:11 Last Infusion: 06/30/24 04:37 Dose: Infused Documented By: Admin: 06/30/24 04:04 Dose: 200 mls/hr Documented By: EDMUNDO Sodium Chloride (Nss) 1,000 mls @ 999 mls/hr IV .Q1H1M ONE Stop: 06/30/24 05:30 Last Infusion: 06/30/24 05:39 Dose: Infused Documented By: Admin: 06/30/24 04:32 Dose: 999 mls/hr Documented By: EDMUNDO Metronidazole (Flagyl) 500 mg in 100 mls @ 100 mls/hr IV NOW STA; Protocol Stop: 06/30/24 05:35 Last Infusion: 06/30/24 05:39 Dose: Infused Documented By: Admin: 06/30/24 04:51 Dose: 100 mls/hr Documented By: EDMUNDO Doxycycline Hyclate 100 mg/ (Dextrose) 100 mls @ 50 mls/hr IV NOW STA Stop: 06/30/24 08:28 Last Admin: 06/30/24 06:48 Dose: Not Given Documented By: EDMUNDO Non-Formulary Medication (D50) 1 amp INJ NOW STA Stop: 06/30/24 04:22 Last Admin: 06/30/24 04:34 Dose: Not Given Documented By: LAF Imaging Data Radiologist's Impression: Chest X-Ray 06/30/24 01:58 XR chest 1V portable CLINICAL HISTORY: Confusion. COMPARISON STUDY: Chest CT January 25, 2017. Chest radiograph December 04, 2018. FINDINGS: The patient is rotated. Lung volumes are normal. Lungs are clear. There is no pneumothorax or pleural effusion. Cardiac size is normal. Mediastinal contours are normal. There is no evidence for pulmonary edema. IMPRESSION: Rotated study. No acute cardiopulmonary findings. ACT 112: Negative or not required by law. Electronically signed by: Ugo Price M.D. 06/30/2024 7:07 AM Chest X-Ray 06/30/24 04:38 XR chest 1V portable CLINICAL HISTORY: low o2, ffup COMPARISON STUDY: Chest radiograph June 30, 2024 at 2:[address] January 25, 2017. FINDINGS: Lung volumes are normal. Lungs are clear. There is no pneumothorax or pleural effusion. Cardiac size is at the upper limits of normal. Mediastinal contours are normal. There is no evidence for pulmonary edema. IMPRESSION: No acute cardiopulmonary findings. ACT 112: Negative or not required by law. Electronically signed by: Ugo Price M.D. 06/30/2024 6:43 AM Discharge Plan Visit Data Chief Complaint: Hypoglycemia Stated Complaint: Hypoglycemia, AMS, Lethargic ED Provider: David Barney Discharge Problem: UTI (urinary tract infection), Sepsis, Hypoglycemia, [place] toxicity, Hypotension, COVID-19 Forms Stand Alone Forms: [facility] [employer] Prescriptions Prescriptions: No Action OMEPRAZOLE (PRILOSEC) 20 MG capsule 20 mg PO BID Qty: 0 METFORMIN HCL (GLUCOPHAGE) 1,000 MG tablet 1,000 mg PO BIDM Qty: 0 PROBIOTIC PRODUCT (PROBIOTIC) 1 TAB tablet 1 tab PO DAILY Qty: 0 Multivitamin tablet 1 tab PO DAILY Qty: 0 Fish Oil ([place]-3) 1 EA capsule 1 cap PO DAILY Qty: 0 LAMOTRIGINE 100 MG tablet 100 mg PO BID Qty: 0 ASPIRIN (ASPIRIN EC) 325 MG tablet 325 mg PO QAM Qty: 0 Lisinopril 10 MG tablet 10 mg PO DAILY Qty: 0 CHOLECALCIFEROL (VITAMIN D3) 1,000 UNIT tablet 2,000 inter.unit PO DAILY Qty: 0 Amlodipine (Norvasc) 5 MG tablet 5 mg PO ONCE Qty: 0 Clonazepam (Klonopin) 1 MG tablet 25 mg PO BID Qty: 0 Clonazepam (Klonopin) 0.5 MG tablet 0.5 mg PO BID Qty: 0 Patient Comments: 1600 Gabapentin 600 MG tablet 600 mg PO TID Qty: 0 LURASIDONE HCL (LATUDA) 20 MG tablet 100 mg PO HS Qty: 0 [place] Carbonate 600 MG capsule 1,150 mg PO HS Qty: 0 Potassium Ext Rel (Klor-Con) 20 MEQ [id number] 40 meq PO HS Qty: 0 Cetirizine (Zyrtec) 10 MG tablet 10 mg PO DAILY Qty: 0 Referrals Referrals: Pao Pereira, [Primary Care Provider] -
[2024-06-30 02:50] LABS: Thyroid Stimulating Hormone 1.047 uIu/ml (0.300-4.500)
[2024-06-30 03:04] LABS: Adenovirus PCR Not Detected (NotDetected); Bordetella parapertussis PCR Not Detected (NotDetected); Bordetella pertussis PCR Not Detected (NotDetected); Chlamydia pneumoniae PCR Not Detected (NotDetected); Coronavirus 229E PCR Not Detected (NotDetected); Coronavirus CoV-2 (COVID19)PCR DETECTED (NotDetected); Coronavirus HKU1 PCR Not Detected (NotDetected); Coronavirus NL63 PCR Not Detected (NotDetected); Coronavirus OC43PCR Not Detected (NotDetected); Human Metapneumovirus PCR Not Detected (NotDetected); Influenza A PCR Not Detected (NotDetected); Influenza B PCR Not Detected (NotDetected); Mycoplasma pneumoniae PCR Not Detected (NotDetected); Parainfluenza Virus 1 PCR Not Detected (NotDetected); Parainfluenza Virus 2 PCR Not Detected (NotDetected); Parainfluenza Virus 3 PCR Not Detected (NotDetected); Parainfluenza Virus 4 PCR Not Detected (NotDetected); Respiratory Syncytial VirusPCR Not Detected (NotDetected); Rhinovirus/Enterovirus PCR Not Detected (NotDetected)
[2024-06-30] MEDS: CEFEPIME 2000MG 2,000 MG/20 ML SYR IV STA (03:24)
[2024-06-30] MEDS: PIPERACILLIN/TAZOBACTAM 4.5 GM/100 ML BAG IV ONE (04:04)
[2024-06-30] MEDS: DEXTROSE 50% 50 ML SYRINGE IV ONE (04:23)
[2024-06-30] MEDS: DEXTROSE INJ STA (04:34)
[2024-06-30] MEDS: metroNIDAZOLE 500 MG/100 ML BAG IV STA (04:51)
[2024-06-30 04:59] LABS: Base Excess VBG -12.8 mEq/L; HCO3 VBG 16 mmol/L; Oxygen Saturation VBG < 60.0 %; PCO2 VBG 49 mmHg (38-50); PO2 VBG 21 mmHg; pH VBG 7.13 (7.36-7.41)
--- OUTSIDE RECORDS SUMMARY | 2024-06-30 05:15 | External Medical Summary | Summary of Care ---
Author Name Unknown Organization [facility] Address [address] [address] Phone [phone] Care Team Providers Care Data Reviewer Name Role Phone Pao Pereira DO Primary Care Provider Encounter Details Date Type Department Care Team (Late st Contact Info) Description 12/08/2023 Telephone Family Practice [facility] [address] [place] [id number] Pao Pereira DO [address] [place] [id number] Allergies No known active allergiesdocumented as of this encounter (statuses as of 03/08/2024) Medications Medication Sig Dispensed Refills Start Date End Date Status OnCore BiopharmaUCH ULTRA SYSTEM W/DEVICE KITIndications:Hyp erinsulinemia,Othe r abnormal glucose Use up to four times a day as directed 1 0 07/01/2009 Active ONETOUCH ULTRA BLUE STRPIndications:Ot her abnormal glucose Use up to four times a day as directed 100 Strip 11 10/14/2011 Active ZYRTEC 10 MG PO CHEW one tablet as needed Active MECLIZINE HCL 25 MG PO TABSIndications:Ve rtigo one /half or One pill by mouth up to 3 times a day as needed for dizziness 30 Tab 1 12/24/2011 Active lamoTRIgine (LAMICTAL) 100 MG Tablet Take 1 Tablet by mouth in the morning and 1 Tablet before bedtime. 09/08/2015 Active gabapentin (NEURONTIN) 300 MG Capsule Take 2 Capsules by mouth in the morning and 2 Capsules at noon and 2 Capsules before bedtime. Active lithium carbonate (ESKALITH) 300 MG Capsule Four caps a day for total of 1200mg. 120 Cap 0 06/09/2016 Active aspirin 325 MG Tablet Take 1 Tablet by mouth in the morning. with food.. 100 Tab 5 03/07/2017 Active clonazePAM (KLONOPIN) 0.5 MG Tablet 1mg in the morning, ) 1 mg at noon, and 0.5mg at 4pm 60 Tab 05/09/2017 Active Lurasidone HCl (LATUDA) 120 MG TABS Take 1 Tablet by mouth in the morning. Active benztropine (COGENTIN) 0.5 MG Tablet 1 Tablet. 1 daily 5 06/18/2019 Active Clobetasol Propionate 0.05 % External Cream (Temovate)Indicati ons:Lichen planus atrophicus Apply topically to affected area 2 times a day. To affected area below vigina and around anus for up to two weeks. Repeat as needed for lichen planus 60 g 1 02/27/2021 Active Terbinafine HCl 1 % External Cream (LamISIL AT ATHLETE'S FOOT)Indications:T inea pedis of both feet Apply topically to affected area 2 times a day. Apply to bottom of feet bilaterally 42 g 02/27/2021 Active metFORMIN HCl 1000 MG Oral Tablet (Glucophage)Indica tions:Type 2 diabetes mellitus with hemoglobin A1c goal of less than 7.0% (HCC) TAKE 1 TABLET BY MOUTH TWICE A DAY WITH BREAKFAST AND DINNER 180 Tablet 1 10/17/2023 Active Fluticasone-Salmet bradley 115-21 MCG/ACT Inhalation Aerosol (Advair Hfa) INHALE 2 PUFFS BY MOUTH IN THE MORNING AND 2 PUFFS BEFORE BEDTIME. 12 Each 12 10/23/2023 Active Albuterol Sulfate HFA 108 (90 Base) MCG/ACT Inhalation Aerosol Solution Inhale 2 Puffs by mouth every 6 hours as needed for Cough. 18 g 10/23/2023 Active FreeStyle Olinda 2 SensorIndications: DM type 2 nursing care encounter (HCC) Use as directed. 2 Each 11 11/24/2023 Active FreeStyle Olinda 2 [place] Device Use as directed. 1 Each 11/24/2023 Active glipiZIDE ER 10 MG Oral Tablet Extended Release 24 Hour (Glucotrol XL)Indications:Typ e 2 diabetes mellitus without complication, without long-term current use of insulin (HCC) TAKE 2 TABLETS BY MOUTH IN THE MORNING. 30 MINUTES BEFORE A MEAL.. 180 Tablet 1 11/28/2023 Active Atorvastatin Calcium 40 MG Oral Tablet (Lipitor)Indicatio ns:Type 2 diabetes mellitus without complication, without long-term current use of insulin (HCC) TAKE 1 TABLET BY MOUTH EVERY DAY 90 Tablet 2 11/28/2023 Active amLODIPine Besylate 10 MG Oral Tablet (Norvasc)Indicatio ns:HTN, goal below 140/90 TAKE 1 TABLET BY MOUTH EVERY DAY 90 Tablet 1 12/02/2023 Active Omeprazole 20 MG Oral Capsule Delayed Release (PriLOSEC)Indicati ons:GERD (gastroesophageal reflux disease) TAKE 1 CAPSULE BY MOUTH EVERY DAY 90 Capsule 1 12/02/2023 Active Jardiance 25 MG Oral Tablet (Empagliflozin)Ind ications:Type 2 diabetes mellitus with hemoglobin A1c goal of less than 7.0% (HCC) TAKE 1 TABLET BY MOUTH EVERY DAY 90 Tablet 1 12/02/2023 Active documented as of this encounter (statuses as of 03/08/2024) Active Problems Problem Noted Date Diagnosed Date Adrenal mass 06/29/2022 Menopause present 05/25/2022 MEN 1 (multiple endocrine neoplasia) 05/25/2022 Obesity, Class II, BMI 35-39.9, isolated (see ac tual BMI) 03/25/2022 Rhonchi 03/25/2022 Lichen planus atrophicus 03/29/2021 Tinea pedis of both feet 03/29/2021 Hyperprolactinemia 01/05/2019 Type 2 diabetes mellitus wit hout complication, without long-term current use of insulin 09/02/2016 HTN, goal below 140/90 12/19/2013 Hypersomnia with sleep apnea 09/04/2009 Benign neoplasm of adrenal gland 02/13/2009 Calculus of kidney 02/13/2009 ADVANCE DIRECTIVE INFORMATION 08/30/2006 Overview: no Tobacco use disorder 08/30/2006 BIPOLAR AFFEC, DEPR-MOD 07/30/1997 Overview: Psychologist: Edwige Garibay Psychiatrist: Dr. Rafael DIAS [facility] 07/30/1997 Headache Overview: ICD-10 update of inactive term documented as of this encounter (statuses as of 03/08/2024) Resolved Problems Problem Noted Date Diagnosed Date Resolved Date Morbid (severe) obesity with alveolar hypoventilation 10/04/2022 04/05/2023 Uncontrolled type 2 diabetes mellitus with hyperglycemia 12/03/2021 03/25/2022 Hypoglycemia associated with diabetes 01/05/2019 01/14/2020 Type 2 diabetes mellitus without complication 03/09/20 16 09/02/2016 Chest discomfort 08/14/2015 03/27/2018 Palpitations 08/14/2015 03/27/2018 Seizure disorder 11/22/2011 09/22/2017 Obesity, morbid (more than 1 00 lbs over ideal weight or BMI > 40) 03/10/2010 04/05/2023 Overview: Per Obesity Protocol, #19 ICD-10 update of inactive term Dyslipidemia, goal to be determined 09/11/2009 11/09/2013 Overview: Per Lipid Taxonomy. HTN, goal below 130/80 08/04/200906/23 Hyperinsulinemia 01/29/2008 01/14/2020 Mixed dyslipidemia 08/30/2006 9 Overview: Per Lipid Taxonomy. documented as of this encounter (statuses as of 03/08/2024) Immunizations Name Administration Dates Next Due COVID-19 mRNA, LNP-s, No Pre serve, 2-Dose Series ([employer]) 02/09/2021,01/19/2021 Pneumococcal Conjugate Vacci ne, 20-valent ([id number]) 10/04/2022 Pneumococcal Polysaccharide PPV23 (Pneumovax) 07/01/2009 Seasonal Influenza, PF, 6 M & above, IM , (FluLaval or Fluzone) 10/04/2022,06/04/2021,05/29/2020,07/02,08/01/2018 Seasonal Influenza, Quadriva lent, No Preserve, IM 06/13/2017,06/09/2016,06/30/2015 Seasonal Influenza, Split, I IV3, With Preserve, Inj 06/05/2014,06/20/2013,07/01/2009,08/02 TDAP (age 10 and older)(Boostrix) 08/06/2016 TDAP, Age 7 and older, IM (Adacel) 11/08/2008 documented as of this encounter Social History Tobacco Use Types Packs/Day Years Used Date Smoking Tobacco: Every Day Cigarettes 0.5 30 Smokeless Tobacco: Never Comments:little over half a pack a day Alcohol Use Standard Drinks/Week Comments No 0 (1 standard drink = 0.6 oz pur e alcohol) PHQ-2 Answer Date Recorded PHQ Adult Total Score 17 12/03/2021 Sex and Gender Information Value Date Recorded Sex Assigned at Not on file Gender Identity Not on file Sexual Orientation Not on file Job Start Date Occupation Industry Not on file Not on file Not on file documented as of this encounter Plan of Treatment Upcoming Encounters Date Type Department Care Team (Late st Contact Info) Description 05/24/2024 7:20 AM EDT Office Visit Family Practice [facility] [place] [address] [place] [address] Pao Pereira DO 200 [facility] [place] [address] Scheduled Procedures Name Priority Associated Diagnoses Date/Ti me COLONOSCOPY FLEXIBLE PROXIMA L DIAGNOSTIC Recall Special screening for malignant neoplasms, colon Health Maintenance Due Date Last Done Comments Hepatitis B (1 of 3 - 19+ 3-dose series) 1993 HPV/Co-Test 2004 DISCUSS TOBACCO CESSATION (REFER TO SMARTSET #3291) 03/07/2018 03/07/2017 (Discussed) Colonoscopy 12/31/2019 Fecal Occult Blood Test 12/31/2019 Sigmoidoscopy 12/31/2019 Depression Monitoring 12/03/2022 12/03/2021 COVID-19 Vaccine ( season) 2023 02/09/2021, 01/19/2021 Diabetic Eye Exam 06/21/2023 06/21/2022, , 01/05/2019, Additional history exists Mammogram 12/07/2023 12/06/2022, 11/24, 12/04/2021, Additional history exists Cervical Cancer Screening 02/28/2024 Pap Smear 02/28/2024 02/27/2021, 05/27, 03/07/2017 (Discussed), Additional history exists HbA1c 03/02/2024 09/01/2023, 07/0 01/2023, 05/25/2022, Additional history exists Albumin/Creatinine Ratio 03/30/2024 023, 12/03/2021, 10/04/2020, Additional history exists Influenza Vaccine (FLU shot) (Season Ended) 2024 10/04/2022, 06/04/2021, 05/29/2020, Additional history exists B-12 11/22/2024 11/22/2023, 07/0 01/2023, 10/04/2020, Additional history exists Diabetic Foot Exam 11/23/2024 11/24/2023, 0 10/04/2022, 04/01/2021, Additional history exists GFR 02/22/2025 02/23/2024, 12/0 03/2023, 03/30/2023, Additional history exists Cologuard 11/26/2025 11/26/2022, 10/28, 11/18/2022 Colorectal Cancer Screening 11/26/2025 DTaP,Tdap,and Td Vaccines (3 - Td or Tdap) 08/06/2026 08/06/2016, 11/08/2008, 12/04/1995 Lipid Panel 09/01/2028 09/01/2023, 05/27, 05/29/2021, Additional history exists Pneumococcal Vaccine: Pediatrics (0 to 5 Years) and At-Risk Patients (6 to 64 Years) Completed 10/04/2022, 07/01/2009 GARDASIL-HPV IMMUNIZATION SERIES Aged Out No longer eligible based on patient's age to complete this topic MENINGOCOCCAL (MENACTRA/MENVEO) Aged Out No longer eligible based on patient's age to complete this topic documented as of this encounter Medical Devices Not on filedocumented as of this encounter Care Teams Data Reviewer Relationship Specialty Start Date End Date Pao Pereira DO [address] [place] [address] PCP - General Family Medicine 11/16/18 documented as of this encounter
--- OUTSIDE RECORDS SUMMARY | 2024-06-30 05:15 | External Medical Summary | Summary of Care ---
Author Name Unknown Organization [facility] Address [address] [facility] [place] [address] Phone [phone] Care Team Providers Care Cook Station Name Role Phone Richelle Pereira DO Primary Care Provider Reason for Visit * Reason Comments eRx-Medication Refill Encounter Details Date Type Department Care Team (Late st Contact Info) Description 02/16/2024 Refill Family Practice [facility] [address] [place] [address] Richelle Pereira DO 200 [facility] [place] [address] HTN, goal below 140/90 Allergies No known active allergiesdocumented as of this encounter (statuses as of 02/16/2024) Medications Medication Sig Dispensed Refills Start Date End Date Status LawPath SYSTEM W/DEVICE KITIndications:H yperinsulinemia, Other abnormal glucose Use up to four times a day as directed 1 0 07/01/2009 Active DuePropsTOUCH ULTRA BLUE STRPIndications: Other abnormal glucose Use up to four times a day as directed 100 Strip 11 10/14/2011 Active ZYRTEC 10 MG PO CHEW one tablet as needed Active MECLIZINE HCL 25 MG PO TABSIndications: Vertigo one /half or One pill by mouth [...] Active Clobetasol Propionate 0.05 % External Cream (Temovate)Indica tions:Lichen planus atrophicus Apply topically to affected area 2 times a day. To affected area below vigina and around anus for up to two weeks. Repeat as needed for lichen planus 60 g 1 02/27/2021 Active Terbinafine HCl 1 % External Cream (LamISIL AT ATHLETE'S FOOT)Indications :Tinea pedis of both feet Apply topically to affected area 2 times a day. Apply to bottom of feet bilaterally 42 g 02/27/2021 Active metFORMIN HCl 1000 MG Oral Tablet (Glucophage)Tory cations:Type 2 diabetes mellitus with hemoglobin A1c goal of less than 7.0% ([facility]) TAKE 1 TABLET BY MOUTH TWICE A DAY WITH BREAKFAST AND DINNER 180 Tablet 1 10/17/2023 Active Fluticasone-Salm eterol 115-21 MCG/ACT Inhalation Aerosol (Advair Hfa) INHALE 2 PUFFS BY MOUTH IN THE MORNING AND 2 PUFFS BEFORE BEDTIME. 12 Each 12 10/23/2023 Active Albuterol Sulfate HFA 108 (90 Base) MCG/ACT Inhalation Aerosol Solution Inhale 2 Puffs by mouth every 6 hours as needed for Cough. 18 g 10/23/2023 Active FreeStyle Olinda 2 SensorIndication s:DM type 2 nursing care encounter (HCC) Use as directed. 2 Each 11 11/24/2023 Active FreeStyle Olinda 2 [place] Device Use as directed. 1 Each 11/24/2023 Active glipiZIDE ER 10 MG Oral Tablet Extended Release 24 Hour (Glucotrol XL)Indications:T ype 2 diabetes mellitus without complication, without long-term current use of insulin (HCC) TAKE 2 TABLETS BY MOUTH IN THE MORNING. 30 MINUTES BEFORE A MEAL.. 180 Tablet 1 11/28/2023 Active Atorvastatin Calcium 40 MG Oral Tablet (Lipitor)Indicat ions:Type 2 diabetes mellitus without complication, without long-term current use of insulin (HCC) TAKE 1 TABLET BY MOUTH EVERY DAY 90 Tablet 2 11/28/2023 Active amLODIPine Besylate 10 MG Oral Tablet (Norvasc)Indicat ions:HTN, goal below 140/90 TAKE 1 TABLET BY MOUTH EVERY DAY 90 Tablet 1 12/02/2023 Active Omeprazole 20 MG Oral Capsule Delayed Release (PriLOSEC)Indica tions:GERD (gastroesophagea l reflux disease) TAKE 1 CAPSULE BY MOUTH EVERY DAY 90 Capsule 1 12/02/2023 Active Jardiance 25 MG Oral Tablet (Empagliflozin)I ndications:Type 2 diabetes mellitus with hemoglobin A1c goal of less than 7.0% (HCC) TAKE 1 TABLET BY MOUTH EVERY DAY 90 Tablet 1 12/02/2023 Active Lisinopril 10 MG Oral Tablet (Prinivil)Indica tions:HTN, goal below 140/90 TAKE 1 TABLET BY MOUTH EVERY DAY 90 Tablet 2 02/16/2024 Active Lisinopril 10 MG Oral Tablet (Prinivil)Indica tions:HTN, goal below 140/90 TAKE 1 TABLET BY MOUTH EVERY DAY 90 Tablet 2 05/22/2023 Discontinued documented as of this encounter (statuses as of 02/16/2024) Active Problems Problem Noted Date Diagnosed Date [...] Psychologist: Edwige Garibay Psychiatrist: Dr. Rafael DIAS [facility] 07/30/1997 Headache Overview: ICD-10 update of inactive term documented as of this encounter (statuses as of 02/16/2024) Resolved Problems Problem Noted Date Diagnosed Date [...] as of this encounter (statuses as of 02/16/2024) Immunizations Name Administration Dates Next Due COVID-19 mRNA, LNP-s, No Pre serve, 2-Dose Series ([employer]) 02/09/2021,01/19/2021 Pneumococcal Conjugate Vacci ne, 20-valent ([id number]) 10/04/2022 Pneumococcal Polysaccharide PPV23 (Pneumovax) 07/01/2009 Seasonal Influenza, PF, 6 M & above, IM , (FluLaval or Fluzone) 10/04/2022,06/04/2021,05/29/2020,07/02,08/01/2018 Seasonal Influenza, Quadriva lent, No Preserve, IM 06/13/2017,06/09/2016,06/30/2015 Seasonal Influenza, Split, I IV3, With Preserve, Inj 06/05/2014,06/20/2013,07/01/2009,08/02 TDAP (age 10 and older)(Boostrix) 08/06/2016 TDAP (age 11 and older)(Adacel) 11/08/2008 documented as of this encounter Social [...] on file documented as of this encounter Miscellaneous Notes * Telephone Encounter - Austen Álvarez [facility] - 02/16/2024 4:19 PM EDT Signed Prescriptions: Disp Refills Lisinopril 10 MG Oral Tablet (Prinivil) 90 Tab*2 Sig: TAKE 1 TABLET BY MOUTH EVERY DAYAuthorizing Provider: RICHELLE PEREIRA User: AUSTEN ÁLVAREZ documented in this encounter Plan of Treatment Upcoming Encounters Date Type Department Care Team (Late st Contact Info) Description 05/24/2024 7:20 AM EDT Office Visit [facility] [address] [place] [address] Richelle Pereira, [address] [place] [address] Scheduled Procedures Name Priority Associated Diagnoses Date/Ti me COLONOSCOPY FLEXIBLE PROXIMA L DIAGNOSTIC Recall Special screening for malignant neoplasms, colon Health Maintenance Due Date Last Done Comments Hepatitis B (1 of 3 - 19+ 3-dose series) 1993 HPV/Co-Test 2004 DISCUSS TOBACCO CESSATION (REFER TO SMARTSET #6511) 03/07/2018 03/07/2017 (Discussed) Colonoscopy 12/31/2019 Fecal Occult Blood Test 12/31/2019 Sigmoidoscopy 12/31/2019 Depression, Most Recent Score >= 10 (will fire each visit until score < 10) 12/04/2021 12/03/2021 COVID-19 Vaccine ( season) 2023 02/09/2021, 01/19/2021 Diabetic Eye Exam 06/21/2023 06/21/2022, , 01/05/2019, Additional history exists Mammogram 12/07/2023 12/06/2022, 11/24, 12/04/2021, Additional history exists Cervical Cancer Screening 02/28/2024 Pap Smear 02/28/2024 02/27/2021, 05/27, 03/07/2017 (Discussed), Additional history exists HbA1c 03/02/2024 09/01/2023, 07/0 01/2023, 05/25/2022, Additional history exists Albumin/Creatinine Ratio 03/30/20242 023, 12/03/2021, 10/04/2020, Additional history exists Influenza Vaccine (FLU shot) (Season Ended) 2024 10/04/2022, 06/04/2021, 05/29/2020, Additional history exists GFR 09/01/2024 09/01/2023, 07/0 01/2023, 10/01/2022, Additional history exists B-12 11/22/2024 11/22/2023, 07/0 01/2023, 10/04/2020, Additional history exists Diabetic Foot Exam 11/23/2024 11/24/2023, 0 10/04/2022, 04/01/2021, Additional history exists Cologuard 11/26/2025 11/26/2022, 10/28, [...] Not on filedocumented as of this encounter Visit Diagnoses Diagnosis HTN, goal below 140/90 Unspecified essential hypertension documented in this encounter Care Teams Cook Station Relationship Specialty Start Date End Date Richelle Pereira DO [address] [place] [address] PCP - General Family Medicine 11/16/18 documented as of this encounter
--- OUTSIDE RECORDS SUMMARY | 2024-06-30 05:15 | External Medical Summary | Summary of Care ---
Author Name Unknown Organization [facility] Address [address] [place] [address] Phone [phone] Care Team Providers Care Cart Pusher Name Role Phone Richelle Pereira DO Primary Care Provider Reason for Visit * Reason Comments eRx-Medication Refill Encounter Details Date Type Department Care Team (Late st Contact Info) Description 04/04/2024 Refill Family Practice [facility] [address] [facility] [place] [address] Richelle Pereira DO 200 [facility] [place] [address] GERD (gastroesophageal reflux disease); Type 2 diabetes mellitus with hemoglobin A1c goal of less than 7.0% ([facility]); HTN, goal below 140/90 Allergies No known active allergiesdocumented as of this encounter (statuses as of 04/05/2024) Medications Medication Sig Dispensed Refills Start Date End Date Status [employer] SYSTEM W/DEVICE KITIndications:H yperinsulinemia, Other abnormal glucose Use up to four times a day as directed 1 0 07/01/2009 Active SocialComUCH ULTRA BLUE STRPIndications: Other abnormal glucose Use [...] of feet bilaterally 42 g 02/27/2021 Active Fluticasone-Salm eterol 115-21 MCG/ACT Inhalation Aerosol [...] Each 11 11/24/2023 Active FreeStyle Olinda 2 [place] Device Use as directed. 1 Each 11/24/2023 [...] EVERY DAY 90 Tablet 2 11/28/2023 Active Lisinopril 10 MG Oral Tablet (Prinivil)Indica tions:HTN, goal below 140/90 TAKE 1 TABLET BY MOUTH EVERY DAY 90 Tablet 2 02/16/2024 Active Omeprazole 20 MG Oral Capsule Delayed Release (PriLOSEC)Indica tions:GERD (gastroesophagea l reflux disease) TAKE 1 CAPSULE BY MOUTH EVERY DAY 90 Capsule 04/05/2024 Active Jardiance 25 MG Oral Tablet (Empagliflozin)I ndications:Type 2 diabetes mellitus with hemoglobin A1c goal of less than 7.0% (HCC) TAKE 1 TABLET BY MOUTH EVERY DAY 90 Tablet 04/05/2024 Active metFORMIN HCl 1000 MG Oral Tablet (Glucophage)Tory cations:Type 2 diabetes mellitus with hemoglobin A1c goal of less than 7.0% (HCC) TAKE 1 TABLET BY MOUTH TWICE A DAY WITH BREAKFAST AND DINNER 180 Tablet 04/05/2024 Active amLODIPine Besylate 10 MG Oral Tablet (Norvasc)Indicat ions:HTN, goal below 140/90 TAKE 1 TABLET BY MOUTH EVERY DAY 90 Tablet 04/05/2024 Active metFORMIN HCl 1000 MG Oral Tablet (Glucophage)Otry cations:Type 2 diabetes mellitus with hemoglobin A1c goal of less than 7.0% (HCC) TAKE 1 TABLET BY MOUTH TWICE A DAY WITH BREAKFAST AND DINNER 180 Tablet 1 10/17/2023 4 Discontinued amLODIPine Besylate 10 MG Oral Tablet (Norvasc)Indicat ions:HTN, goal below 140/90 TAKE 1 TABLET BY MOUTH EVERY DAY 90 Tablet 1 12/02/2023 4 Discontinued Omeprazole 20 MG Oral Capsule Delayed Release (PriLOSEC)Indica tions:GERD (gastroesophagea l reflux disease) TAKE 1 CAPSULE BY MOUTH EVERY DAY 90 Capsule 1 12/02/2023 4 Discontinued Jardiance 25 MG Oral Tablet (Empagliflozin)I ndications:Type 2 diabetes mellitus with hemoglobin A1c goal of less than 7.0% ([facility]) TAKE 1 TABLET BY MOUTH EVERY DAY 90 Tablet 1 12/02/2023 4 Discontinued documented as of this encounter (statuses as of 04/05/2024) Active Problems Problem Noted Date Diagnosed Date [...] Overview: Psychologist: Edwige Garibay Psychiatrist: Dr. Rafael DISA [facility] 07/30/1998 Headache Overview: ICD-10 update of inactive term documented as of this encounter (statuses as of 04/05/2024) Resolved Problems Problem Noted Date Diagnosed Date [...] as of this encounter (statuses as of 04/05/2024) Immunizations Name Administration Dates Next Due COVID-19 mRNA, LNP-s, No Pre serve, 2-Dose Series (Pfizer) 02/09/2021,01/19/2021 Pneumococcal Conjugate Vacci ne, 20-valent ([id number]) 10/04/2022 Pneumococcal Polysaccharide PPV23 (Pneumovax) 07/01/2009 Seasonal [...] encounter Miscellaneous Notes * Telephone Encounter - Darion Rob [facility] - 04/05/2024 3:26 PM EDTSigned Prescriptions: Disp Refills Omeprazole 20 MG Oral Capsule Delayed Rele*90 Cap*0 Sig: TAKE 1 CAPSULE BY MOUTH EVERY DAYAuthorizing Provider: RICHELLE PEREIRA User: DARION ROB Jardiance 25 MG Oral Tablet (Empagliflozin)90 Tab*0 Sig: TAKE 1 TABLET BY MOUTH EVERY DAYAuthorizing Provider: RICHELLE PEREIRA User: DARION ROB metFORMIN HCl 1000 MG Oral Tablet (Glucoph*180 Ta*0 Sig: TAKE 1 TABLET BY MOUTH TWICE A DAY WITH BREAKFAST AND DINNERAuthorizing Provider: RICHELLE PEREIRA User: DARION ROB amLODIPine Besylate 10 MG Oral Table t (Nor*90 Tab*0 Sig: TAKE 1 TABLET BY MOUTH EVERY DAYAuthorizing Provider: RICHELLE PEREIRA User: DARION ROB * Telephone Encounter - Darion Rob RPh - 04/05/2024 3:25 PM EDT Rx's authorized until upcoming OV. Thank you, Darion Rob, PharmD Clinical Pharmacist [facility] 04/05/24 3:26 PM [phone] documented in this encounter Plan of Treatment Upcoming Encounters Date Type Department Care Team (Late st Contact Info) Description 05/24/2024 7:20 AM EDT Office Visit [facility] [place] [address] [place], [place] [address] Richelle Pereira DO [address] [place] [address] Scheduled Procedures Name Priority Associated Diagnoses Date/Ti me COLONOSCOPY FLEXIBLE PROXIMA L DIAGNOSTIC Recall Special screening for malignant neoplasms, colon Health Maintenance Due Date Last Done Comments Hepatitis B Vaccine (1 of 3 - 19+ 3-dose series) 1993 HPV/Co-Test 2004 DISCUSS TOBACCO CESSATION (REFER TO SMARTSET #2015) 03/07/2018 03/07/2017 (Discussed) Colonoscopy 12/31/2019 Fecal Occult [...] 05/25/2022, Additional history exists Albumin/Creatinine Ratio 03/30/2024 07/2 023, 12/03/2021, 10/04/2020, Additional history exists Influenza Vaccine (FLU shot) (#1) 2024 10/04/2022, 06/04/2021, 05/29/2020, Additional history exists [...] (6 to 64 Years) Completed 10/04/2022, 07/01/2009 HPV (Gardasil) Vaccine Aged Out No lo nger eligible based on patient's age to complete this topic MENINGOCOCCAL (MENACTRA/MENVEO) Aged Out No longer eligible based on patient's age to complete this topic documented as of this encounter Medical Devices Not on filedocumented as of this encounter Visit Diagnoses Diagnosis GERD (gastroesophageal reflux disease) Esophageal reflux Type 2 diabetes mellitus with hemoglobin A1c goal of less than 7.0% (HCC) HTN, goal below 140/90 Unspecified essential hypertension documented in this encounter Care Teams Cart Pusher Relationship Specialty Start Date End Date Richelle Pereira DO [address] [place] [address] PCP - General Family Medicine 11/16/18 documented as of this encounter
--- OUTSIDE RECORDS SUMMARY | 2024-06-30 05:15 | External Medical Summary | Summary of Care ---
Author Name Unknown Organization [facility] Address [address] [place] [facility] [address] Phone [phone] Care Team Providers Care Beef Cattle Farmer Name Role Phone Pao Pereira DO Primary Care Provider Reason for Visit * Reason Onset Date Comments Health Maintenance 06/11/2024 Encounter Details Date Type Department Care Team (Late st Contact Info) Description 06/11/2024 Telephone Family Practice [facility] [address] [place] [address] Pao Pereira DO [address] [facility] [place] [place] [address] Health Maintenance Allergies No known active allergiesdocumented as of this encounter (statuses as of 06/11/2024) Medications Medication Sig Dispensed Refills Start Date End Date Status BuildersCloud SYSTEM W/DEVICE KITIndications:Hyp erinsulinemia,Othe r abnormal glucose [...] of feet bilaterally 42 g 02/27/2021 Active Fluticasone-Salmet bradley 115-21 MCG/ACT Inhalation Aerosol [...] Each 11 11/24/2023 Active FreeStyle Olinda 2 [place] Device Use as directed. 1 Each 11/24/2023 Active Atorvastatin Calcium 40 MG Oral Tablet (Lipitor)Indicatio ns:Type 2 diabetes mellitus without complication, without long-term current use of insulin (HCC) TAKE 1 TABLET BY MOUTH EVERY DAY 90 Tablet 2 11/28/2023 Active Lisinopril 10 MG Oral Tablet (Prinivil)Indicati ons:HTN, goal below 140/90 TAKE 1 TABLET BY MOUTH EVERY DAY 90 Tablet 2 02/16/2024 Active Omeprazole 20 MG Oral Capsule Delayed Release (PriLOSEC)Indicati ons:GERD (gastroesophageal reflux disease) TAKE 1 CAPSULE BY MOUTH EVERY DAY 90 Capsule 04/05/2024 Active Jardiance 25 MG Oral Tablet (Empagliflozin)Ind [...] MOUTH EVERY DAY 90 Tablet 04/05/2024 Active glipiZIDE ER 10 MG Oral Tablet Extended Release 24 Hour (Glucotrol XL)Indications:Typ e 2 diabetes mellitus without complication, without long-term current use of insulin (HCC) TAKE 2 TABLETS BY MOUTH IN THE MORNING. 30 MINUTES BEFORE A MEAL.. 180 Tablet 05/25/2024 Active documented as of this encounter (statuses as of 06/11/2024) Active Problems Problem Noted Date Diagnosed Date [...] Psychologist: Edwige Garibay Psychiatrist: Dr. 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 documented as of this encounter (statuses as of 06/11/2024) Immunizations Name Administration Dates Next Due COVID-19 mRNA, LNP-s, No Pre serve, 2-Dose Series (Pfizer) 02/09/2021,01/19/2021 Pneumococcal Conjugate Vacci ne, 20-valent ([id number]) 10/04/2022 Pneumococcal Polysaccharide PPV23 (Pneumovax) 07/01/2009 Seasonal Influenza, PF, 6 M & above, IM , (FluLaval or Fluzone) 10/04/2022,06/04/2021,05/29/2020,07/02,08/01/2018 Seasonal Influenza, Quadriva lent, No Preserve, IM 06/13/2017,06/09/2016,06/30/2015 Seasonal Influenza, Trimarybeth t, (IIV3), with Preserv, (Fluzone) 06/05/2014,06/20/2013,07/01/2009,08/02 TDAP (age 10 and older)(Boostrix) 08/06/2016 [...] encounter Miscellaneous Notes * Telephone Encounter - Nina GraceSHAKILA - 06/11/2024 1:29 PM EDT Care Gaps Comprehensive Care Outreach Last Office/Telemedicine Visit: 11/24/2023 (in office), 01/14/2020 (telemedicine) Next Office Visit: 07/05/2024 Hemoglobin AIC Results: Lab Results Component Value Date/Time HEMOGLOBIN A1C - [facility] 8.2 (H) 09/01/2023 08:17 AM HEMOGLOBIN A1C - [facility] 8.1 (H) 03/30/2023 08:09 AM HEMOGLOBIN A1C - [facility] 7.8 (H) 02/12/2022 08:35 AM HEMOGLOBIN A1C - [facility] 7.0 (H) 03/15/2020 08:52 AM HEMOGLOBIN A1C - [facility] 6.9 (H) 10/20/2019 08:35 AM HEMOGLOBIN A1C - [facility] 7.2 (H) 07/14/2019 09:08 AM HEMOGLOBIN A1C POCT - [facility] 7.4 (H) 05/25/2022 09:51 AM HEMOGLOBIN A1C POCT - [facility] 9.8 (H) 02/27/2021 06:56 AM HEMOGLOBIN A1C POCT - [facility] 9.2 (H) 11/27/2020 07:36 AM BP Readings from Last 1 Encounters: 11/24/23 108/68 Reviewed Health Maintenance below: Health Maintenance Topic Date Due Hepatitis B Vaccine (1 of 3 - 19+ 3-dose series) Never done DISCUSS TOBACCO CESSATION (REFER TO SMARTSET #4969) 03/07/2018 Depression Monitoring 12/03/2022 Diabetic Eye Exam 06/21/2023 Mammogram 12/07/2023 Cervical Cancer Screening 02/28/2024 HbA1c 03/02/2024 Albumin/Creatinine Ratio 03/30/2024 Influenza Vaccine (FLU shot) (1) 05/27/2024 COVID-19 Vaccine (2023- season) 2024 Eye Pap Mamm Labs already ordered Care Gap Outreach Action Taken: Left message documented in this encounter Plan of Treatment Upcoming Encounters Date Type Department Care Team (Late st Contact Info) Description 07/05/2024 7:20 AM EDT Office Visit Family Practice [facility] [address] [facility] [place] [address] Pao Pereira DO [address] [facility] [place] [address] Scheduled Procedures Name Priority Associated Diagnoses Date/Ti me COLONOSCOPY FLEXIBLE PROXIMA L DIAGNOSTIC Recall Special screening for malignant neoplasms, colon Health Maintenance Due Date Last Done Comments Hepatitis B Vaccine (1 of 3 - 19+ 3-dose series) 1993 HPV/Co-Test 2004 DISCUSS TOBACCO CESSATION (REFER TO SMARTSET #3291) 03/07/2018 03/07/2017 (Discussed) Colonoscopy 12/31/2019 Fecal Occult Blood Test 12/31/2019 Sigmoidoscopy 12/31/2019 Depression Monitoring 12/03/2022 12/03/2021 Diabetic Eye Exam 06/21/2023 06/21/2022, , 01/05/2019, Additional history exists Mammogram 12/07/2023 12/06/2022, 11/24, 12/04/2021, Additional history exists Cervical Cancer Screening 02/28/2024 Pap Smear 02/28/2024 02/27/2021, 05/27, 03/07/2017 (Discussed), Additional history exists HbA1c 03/02/2024 09/01/2023, 07/0 01/2023, 05/25/2022, Additional history exists Albumin/Creatinine Ratio 03/30/2024 023, 12/03/2021, 10/04/2020, Additional history exists COVID-19 Vaccine ( season) 2024 02/09/2021, 01/19/2021 Influenza Vaccine (FLU shot) (#1) 2024 10/04/2022, 06/04/2021, 05/29/2020, Additional history exists B-12 11/22/2024 11/22/2023, 07/0 01/2023, 10/04/2020, Additional history exists Diabetic Foot Exam 11/23/2024 11/24/2023, 0 10/04/2022, 04/01/2021, Additional history exists GFR 02/22/2025 02/23/2024, 12/0 03/2023, 03/30/2023, Additional history exists Cologuard 11/26/2025 11/26/2022, 10/28, 11/18/2022 Colorectal Cancer Screening 11/26/2025 DTap/Tdap Vaccines (3 - Td or Tdap) 08/06/2026 [...] filedocumented as of this encounter Care Teams Beef Cattle Farmer Relationship Specialty Start Date End Date Pao Pereira DO [address] [place] [address] PCP - General Family Medicine 11/16/18 documented as of this encounter
--- OUTSIDE RECORDS SUMMARY | 2024-06-30 05:15 | External Medical Summary | Summary of Care ---
Author Name Unknown Organization [facility] Address [address] [facility] [place] [address] Phone [phone] Care Team Providers Care Supervisor Shipping Room Name Role Phone Pao Pereira DO Primary Care Provider Encounter Details Date Type Department Care Team (Late st Contact Info) Description 05/28/2024 Orders Only PATIENT PORTAL DO NOT DELETE THIS DEPT USED BY [place] [id number] Allergies No known active allergiesdocumented as of this encounter (statuses as of 05/28/2024) Medications Medication Sig Dispensed Refills Start Date End Date Status RxAdvanceUCH ULTRA SYSTEM W/DEVICE KITIndications:Hyp erinsulinemia,Othe r abnormal [...] Each 11 11/24/2023 Active FreeStyle Olinda 2 [place] Device Use as directed. 1 Each 11/24/2023 Active Atorvastatin Calcium 40 MG Oral Tablet (Lipitor)Indicatio ns:Type 2 diabetes mellitus without complication, without long-term current use of insulin ([facility]) TAKE 1 TABLET BY MOUTH EVERY DAY [...] as of this encounter (statuses as of 05/28/2024) Active Problems Problem Noted Date Diagnosed Date [...] Psychologist: Edwige Garibay Psychiatrist: Dr. Rafael DIAS [facility] 07/30/1997 Headache Overview: ICD-10 update of inactive term documented as of this encounter (statuses as of 05/28/2024) Resolved Problems Problem Noted Date Diagnosed Date [...] as of this encounter (statuses as of 05/28/2024) Immunizations Name Administration Dates Next Due COVID-19 mRNA, LNP-s, No Pre serve, 2-Dose Series (Pfizer) 02/09/2021,01/19/2021 Pneumococcal Conjugate Vacci ne, 20-valent ([id number]) 10/04/2022 Pneumococcal Polysaccharide PPV23 (Pneumovax) 07/01/2009 Seasonal Influenza, PF, 6 M & above, IM , (FluLaval or Fluzone) 10/04/2022,06/04/2021,05/29/2020,07/02,08/01/2018 Seasonal Influenza, Quadriva lent, No Preserve, IM 06/13/2017,06/09/2016,06/30/2015 Seasonal Influenza, Trivalen t, (IIV3), with Preserv, (Fluzone) 06/05/2014,06/20/2013,07/01/2009,08/02 TDAP [...] 7:20 AM EDT Office Visit Family Practice [facility] [address] [facility] [place] [address] Pao Pereira, [address] [facility] [place] [address] Scheduled Procedures Name Priority Associated Diagnoses Date/Ti [...] filedocumented as of this encounter Care Teams Supervisor Shipping Room Relationship Specialty Start Date End Date Pao Pereira DO [address] [place] [address] PCP - General Family Medicine 11/16/18 documented as of this encounter
--- OUTSIDE RECORDS SUMMARY | 2024-06-30 05:15 | External Medical Summary | Summary of Care ---
Author Name Unknown Organization [facility] Address [address] [place] [address] Phone [phone] Care Team Providers Care Steam Bone Press Tender Name Role Phone Pao Pereira DO Primary Care Provider Reason for Visit * Reason Comments eRx-Medication Refill Encounter Details Date Type Department Care Team (Late st Contact Info) Description 05/24/2024 Refill Family Practice [facility] [address] [facility] [place] [address] Pao Pereira DO [address] [facility] [place] [address] HTN, goal below 140/90*; Type 2 diabetes mellitus without complication, without long-term current use of insulin (HCC); Obesity, Class II, BMI 35-39.9, isolated (see actual BMI); Other dietary vitamin B12 deficiency anemia; Laboratory exam ordered as part of routine general medical examination; Tobacco use disorder Allergies No known active allergiesdocumented as of this encounter (statuses as of 05/26/2024) Medications Medication Sig Dispensed Refills Start Date End Date Status [employer] SYSTEM W/DEVICE KITIndications:H yperinsulinemia, Other abnormal glucose Use up to four times a day as directed 1 0 07/01/2009 Active SynbiotaTOUCH ULTRA BLUE STRPIndications: Other abnormal glucose Use [...] Each 11 11/24/2023 Active FreeStyle Olinda 2 [place] Device Use as directed. 1 Each 11/24/2023 [...] BEFORE A MEAL.. 180 Tablet 05/25/2024 Active glipiZIDE ER 10 MG Oral Tablet Extended Release 24 Hour (Glucotrol XL)Indications:T ype 2 diabetes mellitus without complication, without long-term current use of insulin (HCC) TAKE 2 TABLETS BY MOUTH IN THE MORNING. 30 MINUTES BEFORE A MEAL.. 180 Tablet 1 11/28/2023 4 Discontinued documented as of this encounter (statuses as of 05/26/2024) Active Problems Problem Noted Date Diagnosed Date [...] Psychologist: Edwige Garibay Psychiatrist: Dr. Rafael DIAS [facility] 07/30/1997 Headache Overview: ICD-10 update of inactive term documented as of this encounter (statuses as of 05/26/2024) Resolved Problems Problem Noted Date Diagnosed Date [...] as of this encounter (statuses as of 05/26/2024) Immunizations Name Administration Dates Next Due COVID-19 mRNA, LNP-s, No Pre serve, 2-Dose Series (Pfizer) 02/09/2021,01/19/2021 Pneumococcal Conjugate Vacci ne, 20-valent ([id number]) 10/04/2022 Pneumococcal Polysaccharide PPV23 (Pneumovax) 07/01/2009 Seasonal [...] encounter Miscellaneous Notes * Telephone Encounter - Toya Scott housekeeper home - 05/26/2024 1:53 PM EDT Received message from [facility] regarding patient needing labs. Call Placed, Left message on voicemail advising of required labs Thank you for your assistance Toya Scott Senior Web Applications Developer II [facility] 05/26/2024,1:53 PM * Telephone Encounter - Boubacar Srinivasan RP - 05/25/2024 10:44 AM EDTSigned Prescriptions: Disp Refills glipiZIDE ER 10 MG Oral Tablet Extended Re*180 Ta*0 Sig: TAKE 2 TABLETS BY MOUTH IN THE MORNING. 30 MINUTES BEFORE A MEAL.. Authorizing Provider: PAO PEREIRA Ordering User: BOUBACAR SRINIVASAN * Telephone Encounter - Boubacar Srinivasan RPh - 05/25/2024 10:39 AM EDT Provided 90 days supply with 0 refill(s) until upcoming appointment. Reviewed AMP report, Care Gaps/Health Maintenance, medications list, and for any routine labs typically ordered for this patient. Lab orders placed. Please contact patient to advise of labs ordered for blood draw AND URINE specimen (patient will have to be able to void to provide sample). Recommend patient to fast if able for labs. Patient may still have water and regular medications. Advise to obtain labs before her scheduled office visit 07/05/2024. Roberta AndinoPh. Clinical Pharmacist [facility] [address] [place] [address] [address] [place] [address] : [phone] 05/25/2024,10:43 AM documented in this encounter Plan of Treatment Upcoming Encounters Date Type Department Care Team (Late st Contact Info) Description 07/05/2024 7:20 AM EDT Office Visit [facility] [address] [place], [place] [address] Pao Pereira, [address] [place] [address] Scheduled Orders Name Type Priority Associated Diagnoses Orde r Schedule ALBUMIN / CREATININE RATIO, URINE Lab Routine Type 2 diabetes mellitus without complication, without long-term current use of insulin (HCC) HTN, goal below 140/90 Obesity, Class II, BMI 35-39.9, isolated (see actual BMI) Laboratory exam ordered as part of routine general medical examination Expected: 05/26/2024 (Approximate), Expires: 05/25/2025 VITAMIN B12 Lab Routine Other dietary vitamin B12 deficiency anemia Laboratory exam ordered as part of routine general medical examination Expected: 05/26/2024 (Approximate), Expires: 05/25/2025 HEMOGLOBIN A1C Lab Routine Type 2 diabetes mellitus without complication, without long-term current use of insulin (HCC) Obesity, Class II, BMI 35-39.9, isolated (see actual BMI) Laboratory exam ordered as part of routine general medical examination Expected: 05/26/2024 (Approximate), Expires: 05/25/2025 LIPID PANEL WITH DIRECT LDL IF TG IS HIGH Lab Routine Type 2 diabetes mellitus without complication, without long-term current use of insulin (HCC) HTN, goal below 140/90 Obesity, Class II, BMI 35-39.9, isolated (see actual BMI) Laboratory exam ordered as part of routine general medical examination Tobacco use disorder Expected: 05/26/2024 (Approximate), Expires: 05/25/2025 COMPREHENSIVE METABOLIC PANEL Lab Routine Type 2 diabetes mellitus without complication, without long-term current use of insulin (HCC) HTN, goal below 140/90 Obesity, Class II, BMI 35-39.9, isolated (see actual BMI) Laboratory exam ordered as part of routine general medical examination Expected: 05/26/2024, Expires: 05/25/2025 Scheduled Procedures Name Priority Associated Diagnoses Date/Ti me COLONOSCOPY FLEXIBLE PROXIMA L DIAGNOSTIC Recall Special screening for malignant neoplasms, colon Health Maintenance Due Date Last Done Comments Hepatitis B Vaccine (1 of 3 - 19+ 3-dose series) 1993 HPV/Co-Test 2004 DISCUSS TOBACCO CESSATION (REFER TO SMARTSET #5381) 03/07/2018 03/07/2017 (Discussed) Colonoscopy 12/31/2019 Fecal Occult [...] encounter Visit Diagnoses Diagnosis HTN, goal below 140/90- Primary Unspecified essential hypertension Type 2 diabetes mellitus without complication, without long-term current use of insulin (HCC) Obesity, Class II, BMI 35-39.9, isolated (see actual BMI) Morbid obesity Other dietary vitamin B12 deficiency anemia Laboratory exam ordered as part of routine general medical examination Laboratory examination ordered as part of a routine general medical examination Tobacco use disorder documented in this encounter Care Teams Steam Bone Press Tender Relationship Specialty Start Date End Date Pao Pereira DO [address] [place] [address] PCP - General Family Medicine 11/16/18 documented as of this encounter
--- OUTSIDE RECORDS SUMMARY | 2024-06-30 05:15 | External Medical Summary ---
Author Name Unknown Address Unknown Organization [id number]:[facility] [place] [address] Laboratory Report Ordering Provider Test Date Status MARQUISE BUTLER 02/23/2024 07:58:44 Final Observation Date Value Abnormality Reference (Units ) Status BUN 02/23/2024 07:58:44 7 6-20 (mg/dL) Final Creatinine 02/23/2024 07:58:44 0.9 0.5-1.0 (mg/dL) Final Glomerular filtration rate/1.73 sq M.predicted [Volume Rate/Area] in Serum, Plasma or Blood by Creatinine-based formula (CKD-EPI) 02/23/2024 07:58:44 83 >=60 (mL/min) Final eGFR is calculated based on the CKD-EPI 2020 equation Sodium 02/23/2024 07:58:44 134 Below low normal 135 -146 (mmol/L) Final Potassium 02/23/2024 07:58:44 4.2 3.5-5.1 (m mol/L) Final Cl 02/23/2024 07:58:44 103 98-107 (mm ol/L) Final CO2 02/23/2024 07:58:44 17 Below low normal 22- 32 (mmol/L) Final Anion gap 02/23/2024 07:58:44 14 7-15 (mmol /L) Final Glucose 02/23/2024 07:58:44 110 70-120 (mg /dL) Final Calcium 02/23/2024 07:58:44 10.1 8.4-10.2 ( mg/dL) Final Performing Location [facility] [place] [address]
--- OUTSIDE RECORDS SUMMARY | 2024-06-30 05:15 | External Medical Summary ---
Author Name Unknown Address Unknown Organization [id number]:[facility] [place] [address] [place] [address] Laboratory Report Ordering Provider Test Date Status MARQUISE BUTLER 02/23/2024 07:58:44 Final Observation Date Value Abnormality Reference (Units ) Status [place] [Moles/volume] in Blood 02/23/2024 07:58:44 0.9 0.6-1.2 (mmol/L) Final Performing Location [facility] [place] [address] [place] [address]
--- OUTSIDE RECORDS SUMMARY | 2024-06-30 05:15 | External Medical Summary | Summary of Care ---
Author Name Unknown Organization [facility] [address] [facility] [address] Phone [phone] Care Team Providers Care Company Tanker Truck Driver Name Role Phone Pao Pereira DO Primary Care Provider Reason for Visit * Reason Comments Outpatient Testing Encounter Details Date Type Department Care Team (Late st Contact Info) Description 02/23/2024 8:20 AM EDT Laboratory Laboratory, [facility] [address] [facility] [place] [address] [facility] [address] [facility] [address] Encounter for long-term (current) use of other medications Allergies No known active allergiesdocumented as of this encounter (statuses as of 02/23/2024) Medications Medication Sig Dispensed Refills Start Date End Date Status Cynny SYSTEM W/DEVICE KITIndications:Hyp erinsulinemia,Othe r abnormal glucose [...] hemoglobin A1c goal of less than 7.0% ([facility]) TAKE 1 TABLET BY MOUTH TWICE A [...] encounter (HCC) Use as directed. 2 Each 11/24/2023 Active FreeStyle Olinda 2 [place] Device Use as directed. 1 Each 11/24/2023 [...] 12/02/2023 Active Lisinopril 10 MG Oral Tablet (Prinivil)Indicati ons:HTN, goal below 140/90 TAKE 1 TABLET BY MOUTH EVERY DAY 90 Tablet 2 02/16/2024 Active documented as of this encounter (statuses as of 02/23/2024) Active Problems Problem Noted Date Diagnosed Date [...] Psychologist: Edwige Garibay Psychiatrist: Dr. Rafael DIAS [facility] 07/30/1997 Headache Overview: ICD-10 update of inactive term documented as of this encounter (statuses as of 02/23/2024) Resolved Problems Problem Noted Date Diagnosed Date [...] as of this encounter (statuses as of 02/23/2024) Immunizations Name Administration Dates Next Due COVID-19 mRNA, LNP-s, No Pre serve, 2-Dose Series (Pfizer) 02/09/2021,01/19/2021 Pneumococcal Conjugate Vacci ne, 20-valent ([id number]) 10/04/2022 Pneumococcal Polysaccharide PPV23 (Pneumovax) 07/01/2009 Seasonal [...] 7:20 AM EDT Office Visit Family Practice [facility] [address] [place] [address] Pao Pereira, [address] [facility] [place], [place] [address] Pending Results Name Type Priority Associated Diagnoses Date /Time BASIC METABOLIC PANEL Lab Routine Encounter for long-term (current) use of other medications 02/23/2024 7:58 AM EDT LITHIUM LEVEL Lab Routine Encounter for long-term (current) use of other medications 02/23/2024 7:58 AM EDT Scheduled Procedures Name Priority Associated Diagnoses Date/Ti me COLONOSCOPY FLEXIBLE PROXIMA L DIAGNOSTIC Recall Special screening for malignant neoplasms, colon Health Maintenance Due Date Last Done Comments Hepatitis B (1 of 3 - 19+ 3-dose series) 1993 HPV/Co-Test 2004 DISCUSS TOBACCO CESSATION (REFER TO SMARTSET #3503) 03/07/2018 03/07/2017 (Discussed) Colonoscopy 12/31/2019 Fecal Occult [...] as of this encounter Visit Diagnoses Diagnosis Encounter for long-term (current) use of other medications documented in this encounter Care Teams Company Tanker Truck Driver Relationship Specialty Start Date End Date Pao Pereira DO [address] [place] [address] PCP - General Family Medicine 11/16/18 documented as of this encounter
--- OUTSIDE RECORDS SUMMARY | 2024-06-30 05:15 | External Medical Summary | Summary of Care ---
Author Name Unknown Organization [facility] Address [address] [place] [address] Phone [phone] Care Team Providers Care National Sales Consultant Name Role Phone Pao Pereira DO Primary Care Provider Reason for Visit * Reason Onset Date Comments Appointment 11/30/2023 Encounter Details Date Type Department Care Team (Late st Contact Info) Description 11/30/[address] [facility] [address] [place] [address] Pao Pereira DO [facility] [place] [address] Appointment Allergies No known active allergiesdocumented as of this encounter (statuses as of 02/06/2024) Medications Medication Sig Dispensed Refills Start Date End Date Status [employer] SYSTEM W/DEVICE KITIndications:Hyp erinsulinemia,Othe r abnormal glucose Use up to four times a day as directed 1 0 07/01/2009 Active ONETOUCH ULTRA BLUE STRPIndications:Ot her abnormal glucose Use up to four times a day as directed 100 Strip 11 10/14/2011 Active ZYRTEC 10 MG PO CHEW one tablet as needed 0 Active MECLIZINE HCL 25 MG PO TABSIndications:Ve rtigo one /half or One pill by mouth up to 3 times a day as needed for dizziness 30 Tab 1 12/24/2011 Active lamoTRIgine (LAMICTAL) 100 MG Tablet Take 1 Tablet by mouth in the morning and 1 Tablet before bedtime. 0 09/08/2015 Active gabapentin (NEURONTIN) 300 MG Capsule Take 2 Capsules by mouth in the morning and 2 Capsules at noon and 2 Capsules before bedtime. 0 Active lithium carbonate (ESKALITH) 300 MG Capsule Four caps a day for total of 1200mg. 120 Cap 0 06/09/2016 Active aspirin 325 MG Tablet Take 1 Tablet by mouth in the morning. with food.. 100 Tab 5 03/07/2017 Active clonazePAM (KLONOPIN) 0.5 MG Tablet 1mg in the morning, ) 1 mg at noon, and 0.5mg at 4pm 60 Tab 0 05/09/2017 Active Lurasidone HCl (LATUDA) 120 MG TABS Take 1 Tablet by mouth in the morning. 0 Active benztropine (COGENTIN) 0.5 MG Tablet 1 [...] to bottom of feet bilaterally 42 g 0 02/27/2021 Active Lisinopril 10 MG Oral Tablet (Prinivil)Indicati ons:HTN, goal below 140/90 TAKE 1 TABLET BY MOUTH EVERY DAY 90 Tablet 2 05/22/2023 Active metFORMIN HCl 1000 MG Oral Tablet [...] hours as needed for Cough. 18 g 0 10/23/2023 Active FreeStyle Olinda 2 SensorIndications: DM type 2 nursing care encounter ([facility]) Use as directed. 2 Each 11 11/24/2023 Active FreeStyle Olinda 2 [place] Device Use as directed. 1 Each 0 11/24/2023 Active glipiZIDE ER 10 MG Oral Tablet Extended Release 24 Hour (Glucotrol XL)Indications:Typ e 2 diabetes mellitus without complication, without long-term current use of insulin ([facility]) TAKE 2 TABLETS BY MOUTH IN THE MORNING. 30 MINUTES BEFORE A MEAL.. 180 Tablet 1 11/28/2023 Active Atorvastatin Calcium 40 MG Oral Tablet (Lipitor)Indicatio ns:Type 2 diabetes mellitus without complication, without long-term current use of insulin ([facility]) TAKE 1 TABLET BY MOUTH EVERY DAY 90 Tablet 2 11/28/2023 Active documented as of this encounter (statuses as of 02/06/2024) Active Problems Problem Noted Date Diagnosed Date [...] Psychologist: Edwige Garibay Psychiatrist: Dr. Rafael DIAS [facility] 07/30/1997 Headache Overview: ICD-10 update of inactive term documented as of this encounter (statuses as of 02/06/2024) Resolved Problems Problem Noted Date Diagnosed Date [...] as of this encounter (statuses as of 02/06/2024) Immunizations Name Administration Dates Next Due COVID-19 mRNA, LNP-s, No Pre serve, 2-Dose Series (Pfizer) 02/09/2021,01/19/2021 Pneumococcal Conjugate Vacci ne, 20-valent ([id number]) 10/04/2022 Pneumococcal Polysaccharide PPV23 (Pneumovax) 07/01/2009 Seasonal [...] encounter Miscellaneous Notes * Telephone Encounter - Kim Mai OSA - 11/30/2023 2:21 PM EST Called patient, left message to return call. * Telephone Encounter - Dee Jenkins OSA - 11/30/2023 1:38 PM EST Please contact patient to schedule Derm referral [facility] please and thank you documented in this encounter Plan of Treatment Upcoming Encounters Date Type Department Care Team (Late st Contact Info) Description 05/24/2024 7:20 AM EDT Office Visit Family Practice [facility] [address] [facility] [address] Pao Pereira DO [address] [facility] [place] [address] Scheduled Procedures Name Priority Associated Diagnoses Date/Ti [...] score < 10) 12/04/2021 12/03/2021 COVID-19 Vaccine (3 - 2023-24 season) 2023 02/09/2021, 01/19/2021 Diabetic Eye Exam [...] filedocumented as of this encounter Care Teams National Sales Consultant Relationship Specialty Start Date End Date Pao Pereira DO [address] [place] [address] PCP - General Family Medicine 11/16/18 documented as of this encounter
--- OUTSIDE RECORDS SUMMARY | 2024-06-30 05:15 | External Medical Summary | Summary of Care ---
Author Name Unknown Organization [facility] Address [address] [facility] [place] [address] Phone [phone] Care Team Providers Care Repairer Welding Equipment Name Role Phone Richelle Pereira DO Primary Care Provider Reason for Visit * Reason Comments eRx-Medication Refill Encounter Details Date Type Department Care Team (Late st Contact Info) Description 06/28/2024 Refill Family Practice [facility] [address] [place] [address] Richelle Pereira DO [address] [facility] [place] [address] Allergies No known active allergiesdocumented as of this encounter (statuses as of 06/29/2024) Medications Medication Sig Dispensed Refills Start Date End Date Status [employer] SYSTEM W/DEVICE KITIndications:H yperinsulinemia, Other abnormal glucose Use up to four times a day as directed 1 0 07/01/2009 Active ConteXtreamUCH ULTRA BLUE STRPIndications: Other abnormal glucose Use [...] BEFORE BEDTIME. 12 Each 12 10/23/2023 Active FreeStyle Olinda 2 SensorIndication s:DM type 2 nursing care encounter (HCC) Use as directed. 2 Each 11/24/2023 Active FreeStyle Olinda 2 [place] Device Use as directed. 1 Each 11/24/2023 Active Atorvastatin Calcium 40 MG Oral Tablet (Lipitor)Indicat ions:Type 2 diabetes mellitus without complication, without long-term current use of insulin ([facility]) TAKE 1 TABLET BY MOUTH [...] BEFORE A MEAL.. 180 Tablet 05/25/2024 Active Albuterol Sulfate HFA 108 (90 Base) MCG/ACT Inhalation Aerosol Solution INHALE 2 PUFFS BY MOUTH EVERY 6 HOURS NEEDED FOR COUGH. 18 g 06/29/2024 Active Albuterol Sulfate HFA 108 (90 Base) MCG/ACT Inhalation Aerosol Solution Inhale 2 Puffs by mouth every 6 hours as needed for Cough. 18 g 10/23/2023 4 Discontinued documented as of this encounter (statuses as of 06/29/2024) Active Problems Problem Noted Date Diagnosed Date [...] 07/30/1997 Overview: Psychologist: Edwige Garibay Psychiatrist: Dr. Hall Encounter for other general counseling or advice on contraception 07/30/1997 Overview: ICD-10 update of inactive term Headache Overview: ICD-10 update of inactive term documented as of this encounter (statuses as of 06/29/2024) Resolved Problems Problem Noted Date Diagnosed Date [...] as of this encounter (statuses as of 06/29/2024) Immunizations Name Administration Dates Next Due COVID-19 mRNA, LNP-s, No Pre serve, 2-Dose Series (Pfizer) 02/09/2021,01/19/2021 Pneumococcal Conjugate Vacci ne, 20-valent ([id number]) 10/04/2022 Pneumococcal Polysaccharide PPV23 (Pneumovax) 07/01/2009 Seasonal Influenza Vac., MDV , IM, 0.5 mL (Fluzone) 06/05/2014,06/20/2013,07/01/2009,08/02 Seasonal Influenza, PF, 6 M & above, IM , (FluLaval or Fluzone) 10/04/2022,06/04/2021,05/29/2020,07/02,08/01/2018 Seasonal Influenza, Quadriva lent, No Preserve, IM 06/13/2017,06/09/2016,06/30/2015 TDAP (age 10 and older)(Boostrix) 08/06/2016 TDAP, [...] encounter Miscellaneous Notes * Telephone Encounter - Brea Apple RPh - 06/29/2024 6:44 PM EDT Signed Prescriptions: Disp Refills Albuterol Sulfate HFA 108 (90 Base) MCG/AC*18 g 0 Sig: INHALE 2 PUFFS BY MOUTH EVERY 6 HOURS NEEDED FOR COUGH.Authorizing Provider: RICHELLE PEREIRA User: BREA APPLE documented in this encounter Plan of Treatment Upcoming Encounters Date Type Department Care Team (Late st Contact Info) Description 07/05/2024 7:20 AM EDT Office Visit Family Practice [facility] [place] [address] [facility] [place] [address] Richelle Pereira, [address] [facility] [place] [address] Scheduled Procedures Name Priority Associated Diagnoses Date/Ti [...] 01/2023, 05/25/2022, Additional history exists Albumin/Creatinine Ratio 03/30/202403/30/2 023, 12/03/2021, 10/04/2020, Additional history exists COVID-19 Vaccine ( season) 2024 02/09/2021, 01/19/2021 Influenza Vaccine (FLU shot) (#1) 2024 10/04/2022, 06/04/2021, 05/29/2020, Additional history exists B-12 11/22/2024 11/22/2023, 07/0 01/2023, 10/04/2020, Additional history exists Diabetic Foot Exam 11/23/2024 11/24/2023, 0 10/04/2022, 04/01/2021, Additional history exists GFR 02/22/2025 02/23/2024, 12/03/2023, 03/30/2023, Additional history exists Cologuard 11/26/2025 11/26/2022, [...] filedocumented as of this encounter Care Teams Repairer Welding Equipment Relationship Specialty Start Date End Date Richelle Pereira DO [address] [place] [address] PCP - General Family Medicine 11/16/18 documented as of this encounter
[2024-06-30 05:21] LABS: BUN Creatinine Ratio 10.5 (10-20); Calcium 8.8 mg/dl (8.6-10.3); Creatinine Clr Calc Pharmacy 20.7 ml/min; Potassium 3.5 mmol/L (3.5-5.1)
[2024-06-30] MEDS: LACTATED RINGER'S 1,000 ML IV ONE (06:02)
[2024-06-30 06:18] LABS: Adenovirus F 40/41 PCR Not Detected (NotDetected); Astrovirus PCR Not Detected (NotDetected); Cryptosporidium PCR Not Detected (NotDetected); Cyclospora cayetanensis PCR Not Detected (NotDetected); Entamoeba histolytica PCR Not Detected (NotDetected); Enteroaggregative E.coli(EAEC) Not Detected (NotDetected); Enterotoxigenic E.coli (ETEC) Not Detected (NotDetected); Giardia lamblia PCR Not Detected (NotDetected); Norovirus GI/GII PCR Not Detected (NotDetected); Plesiomonas shigelloides PCR Not Detected (NotDetected); Rotavirus A PCR Not Detected (NotDetected); Salmonella PCR Not Detected (NotDetected); Sapovirus PCR Not Detected (NotDetected); Shiga-like Toxin E.coli (STEC) Not Detected (NotDetected); Shigella/Enteroinvasive E.coli Not Detected (NotDetected); Vibrio cholerae PCR Not Detected (NotDetected); Vibrio species PCR Not Detected (NotDetected); Yersinia enterocolitica PCR Not Detected (NotDetected)
--- NOTE | 2024-06-30 06:30 | History & Physical Report ---
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 (pituitary adenoma, hyperparathyroidism)/hyperprolactinemia/adrenal mass as per records, last [facility] Endo follow-up was 2 years ago tardive dyskinesia as per records ongoing tobacco abuse Admit to PCU given hypotension Monitor creatinine response to IVF Hold multiple antihypertensive medications for now CS, Zosyn for complicated UTI Azithromycin for complicated bronchitis secondary to COVID-19 illness and Campylobacter diarrhea Decadron for severe COVID [address] chest to rule out pneumonia CT abdomen pelvis re: kidney dysfunction, UTI, history urolithiasis Hold lithium for now, hold parameters for sedation confusion for neuropsychotropic medications Follow renal function, VBG and lithium levels Nephrology consult Re: Metabolic acidosis, renal failure, lithium toxicity ISS BG goal 1 10-1 40, update hemoglobin A1c Nicotine patch as needed DVT prophylaxis. Heparin subcu Full code Total critical care care time was 40 minutes. Text document was generated using Invarium voice recognition software. It may contain grammatical or spelling errors. Kindly contact undersigned for clarification of any documentation item in question. History of Present Illness Chief Complaint: Low blood sugar, weakness, confusion as per records Primary Care Provider: Pao Pereira, History obtained from patient and records. Medical history significant for hypertension, hyperlipidemia, HALEY, possible multiple endocrine neoplasia syndrome type I (pituitary adenoma, hyperparathyr oidism) as per records, hyperprolactinemia, adrenal mass as per records DM 2 on oral medications, mood disorder, tardive dyskinesia as per records, urolithiasis, ongoing tobacco abuse. Last confinement 2014 under Psychiatry service for suicidality. Patient not feeling well the last few days after returning from a trip from [facility]. Junky cough symptoms without chest pain or SOB. Poor appetite. Patient is feeling tired. Denies abdominal or flank pain or dysuria symptoms. Patient sleeping a lot at home as per . Watery diarrhea symptoms. Patient hypoglycemic at home, BSG 30s. Patient brought to the ER for evaluation. Lowest SBP of 80s, temperature of 34. Transient O2 sats of 80s while at the ER around 4:30 AM. Cefepime administered at the ER. Medical History as above Surgical History : D&C, lipoma removal, ovarian cyst removal, cholecystectomy Family History : Breast cancer, DM, heart disease, bipolar disorder Personal/Social history : 1 pack daily, no EtOH intake, disabled Allergies Allergy/AdvReac Type Severity Reaction Status Date / Time No Known Allergies Allergy Verified 06/28/17 14:15 Home Medications Medication Instructions Recorded Confirmed Type OMEPRAZOLE (PRILOSEC) 20 mg PO BID ##0 08/10/12 06/30/24 History METFORMIN HCL (GLUCOPHAGE) 1,000 mg PO BIDM ##0 06/08/15 06/30/24 History Fish Oil ([place]-3) 1 cap PO DAILY #0 caps 01/24/17 06/30/24 History Multivitamin 1 tab PO DAILY #0 tabs 01/24/17 06/30/24 History PROBIOTIC PRODUCT (PROBIOTIC) 1 tab PO DAILY ##0 01/24/17 06/30/24 History ASPIRIN (ASPIRIN EC) 325 mg PO QAM ##0 05/03/17 06/30/24 History CHOLECALCIFEROL (VITAMIN D3) 2,000 inter.unit PO DAILY #0 tabs 05/03/17 06/30/24 History LAMOTRIGINE 100 mg PO BID ##0 05/03/17 06/30/24 History Lisinopril 10 mg PO DAILY ##0 05/03/17 06/30/24 History Amlodipine (Norvasc) 5 mg PO ONCE ##0 06/28/17 06/30/24 History Cetirizine (Zyrtec) 10 mg PO DAILY ##0 06/28/17 06/30/24 History Clonazepam (Klonopin) 0.5 mg PO BID ##0 06/28/17 06/30/24 History Clonazepam (Klonopin) 25 mg PO BID ##0 06/28/17 06/30/24 History Gabapentin 600 mg PO TID ##0 06/28/17 06/30/24 History LURASIDONE HCL (LATUDA) 100 mg PO HS ##0 10/03/17 10/05/24 History [place] Carbonate 1,150 mg PO HS ##0 06/28/17 06/30/24 History Potassium Ext Rel (Klor-Con) 40 meq PO HS ##0 06/28/17 06/30/24 History Past Med/Surg History Problem List Encephalopathy COVID-19 (Acute) Hypotension (Acute) [place] toxicity (Acute) Hypoglycemia (Acute) Sepsis (Acute) UTI (urinary tract infection) (Acute) HTN (hypertension) (Acute) Hyperinsulinemia (Chronic) Hypersomnia with sleep apnea (Chronic) Bipolar disorder (Chronic) Depression (Chronic) Seizure disorder (Chronic) Anxiety (Chronic) Obesity, morbid, BMI 40.0-49.9 (Chronic) Hx of cholecystectomy (Chronic) H/O dilation and curettage (Chronic) Social History (Updated 12/04/18 @ 18:41 by Katherine Murry) Smoking Status: Current every day smoker Tobacco Type: Cigarettes Preferred Language: Frisian Current Living Situation: Family Feels Safe at Home: Yes Review of Systems Review of Systems: As per HPI, all other systems reviewed and negative Physical Exam Physical Exam: GENERAL: Comfortable, pleasant, obese, no respiratory distress SKIN: Normal color, cool HEENT: [place] palpebral conjunctivae, no ptosis, dry buccal mucosa, nasal cannula in place NECK : Supple, no tenderness CHEST : Expiratory wheezes, no tenderness HEART : RRR, no obvious murmurs ABDOMEN: Some distention, nontender EXTREMITIES : Minimal LE swelling, no LE tenderness, no other conspicuous deformities noted NEUROLOGIC : Coherent, no facial asymmetry, no other gross focality Results & Data Results & Data Vital Signs (Past 12 Hours) Vital Signs Temp Pulse Resp BP Pulse Ox 06/30/24 06:05 36.1 C L 06/30/24 06:00 76 18 101/50 L 91 06/30/24 05:35 74 06/30/24 05:00 65 14 102/46 L 99 06/30/24 04:20 35.2 C L 06/30/24 03:34 65 23 96/47 L 91 06/30/24 02:11 34 C L 06/30/24 02:01 58 L 16 89/56 L 96 06/30/24 01:47 34 C L 58 L 16 90/55 L 96 06/30/24 01:36 66 Laboratory Results Laboratory Results WBC 20.25 K/ul (4.8-10.8) H 06/30/24 01:43 RBC 5.48 M/uL (4.20-5.40) H 06/30/24 01:43 Hgb 16.3 g/dl (12.0-16.0) H 06/30/24 01:43 Hct 49.9 % (37.0-47.0) H 06/30/24 01:43 MCV 91.1 fL (80.0-100.0) 06/30/24 01:43 MCH 29.7 pg (25.0-34.0) 06/30/24 01:43 MCHC 32.7 g/dL (32.0-36.0) 06/30/24 01:43 RDW Std Deviation 50.6 fL (36.4-46.3) H 06/30/24 01:43 RDW Coeff of Naz 15.1 % (11.5-14.5) H 06/30/24 01:43 Plt Count 440 K/uL (130-400) H 06/30/24 01:43 MPV 9.2 fL (9.4-12.4) L 06/30/24 01:43 Immature Gran % (Auto) 1.6 % 06/30/24 01:43 Neut % (Auto) 81.4 % 06/30/24 01:43 Lymph % (Auto) 12.2 % 06/30/24 01:43 [place] % (Auto) 4.2 % 06/30/24 01:43 Eos % (Auto) 0.3 % 06/30/24 01:43 Baso % (Auto) 0.3 % 06/30/24 01:43 Neut # (Auto) 16.47 K/uL (1.40-6.50) H 06/30/24 01:43 Lymph # (Auto) 2.47 K/uL (1.20-3.40) 06/30/24 01:43 [place] # (Auto) 0.86 K/uL (0.11-0.59) H 06/30/24 01:43 Eos # (Auto) 0.06 K/uL (0.00-0.50) 06/30/24 01:43 Baso # (Auto) 0.07 K/uL (0.00-0.20) 06/30/24 01:43 Immature Gran # (Auto) 0.32 K/uL (0.01-0.20) H 06/30/24 01:43 VBG pH 7.13 (7.36-7.41) L 06/30/24 04:49 VBG pCO2 49 mmHg (38-50) 06/30/24 04:49 VBG pO2 21 mmHg 06/30/24 04:49 VBG HCO3 16 mmol/L 06/30/24 04:49 VBG O2 Saturation < 60.0 % 06/30/24 04:49 VBG Base Excess -12.8 mEq/L 06/30/24 04:49 Sodium 132 mmol/L (136-145) L 06/30/24 04:49 Potassium 3.5 mmol/L (3.5-5.1) 06/30/24 04:49 Chloride 108 mmol/L (98-107) H 06/30/24 04:49 Carbon Dioxide 17 mmol/L (21-32) L 06/30/24 04:49 Anion Gap 7 (3-11) 06/30/24 04:49 BUN 43 mg/dl (6-23) H 06/30/24 04:49 Creatinine 4.10 mg/dl (0.6-1.2) H 06/30/24 04:49 Est Cr Clr Drug Dosing 20.7 ml/min 06/30/24 04:49 eGFR 12.70 06/30/24 04:49 BUN/Creatinine Ratio 10.5 (10-20) 06/30/24 04:49 Glucose 110 mg/dl (70-99(Fasting)) H 06/30/24 04:49 POC Glucose 123 mg/dl (70-99) H 06/30/24 04:58 Lactate 1.4 mmol/L (0.4-2.0) 06/30/24 04:49 Calcium 8.8 mg/dl (8.6-10.3) 06/30/24 04:49 Total Bilirubin 0.4 mg/dl (0.2-1.0) 06/30/24 01:43 AST 11 U/L (13-39) L 06/30/24 01:43 ALT 10 U/L (7-52) 06/30/24 01:43 Alkaline Phosphatase 110 U/L (34-104) H 06/30/24 01:43 Troponin I High Sens 5.1 pg/ml (0-14) 06/30/24 01:43 Total Protein 7.4 gm/dl (6.0-8.3) 06/30/24 01:43 Albumin 4.2 gm/dl (3.4-5.0) 06/30/24 01:43 Globulin 3.2 gm/dl (2.5-4.0) 06/30/24 01:43 Albumin/Globulin Ratio 1.3 (0.9-2) 06/30/24 01:43 Lipase 27 U/L (11-82) 06/30/24 01:43 TSH 1.047 uIu/ml (0.300-4.500) 06/30/24 01:43 Urine Color Yellow 06/30/24 02:00 Urine Appearance Cloudy (Clear) A 06/30/24 02:00 Urine pH 5.5 (4.5-7.5) 06/30/24 02:00 Ur Specific [place] 1.017 (1.000-1.030) 06/30/24 02:00 Urine Protein 2+ (Negative) H 06/30/24 02:00 Urine Glucose (UA) Negative (Negative) 06/30/24 02:00 Urine Ketones Trace (Negative) H 06/30/24 02:00 Urine Blood Negative (Negative) 06/30/24 02:00 Urine Nitrite Negative (Negative) 06/30/24 02:00 Urine Bilirubin Negative (Negative) 06/30/24 02:00 Urine Urobilinogen Negative (Negative) 06/30/24 02:00 Ur Leukocyte Esterase 3+ (Negative) H 06/30/24 02:00 Urine WBC (Auto) >50 /hpf (0-5) H 06/30/24 02:00 Urine RBC (Auto) 0-2 /hpf (0-2) 06/30/24 02:00 U Hyaline Cast (Auto) 3-5 /lpf (0-2) H 06/30/24 02:00 U Epithel Cells (Auto) 0-2 /hpf (0-2) 06/30/24 02:00 Urine Bacteria (Auto) 3+ (None Seen) H 06/30/24 02:00 Stl C. diff Tox B Gene Negative Cdiff Gene (Neg) 06/30/24 04:48 [place] 1.8 mmol/L (0.6-1.2) H 06/30/24 04:49 Adenovirus (PCR) Not Detected (NotDetected) 06/30/24 02:00 B. pertussis DNA (PCR) Not Detected (NotDetected) 06/30/24 02:00 B.parapertussis DNA PCR Not Detected (NotDetected) 06/30/24 02:00 C. pneumoniae DNA (PCR) Not Detected (NotDetected) 06/30/24 02:00 Coronavirus OC43 (PCR) Not Detected (NotDetected) 06/30/24 02:00 Coronavirus HKU1 (PCR) Not Detected (NotDetected) 06/30/24 02:00 Coronavirus 229E (PCR) Not Detected (NotDetected) 06/30/24 02:00 SARS-CoV-2 (PCR) DETECTED (NotDetected) A 06/30/24 02:00 Coronavirus NL63 (PCR) Not Detected (NotDetected) 06/30/24 02:00 Human Metapneumovir PCR Not Detected (NotDetected) 06/30/24 02:00 Influenza Type A (PCR) Not Detected (NotDetected) 06/30/24 02:00 Influenza Type B (PCR) Not Detected (NotDetected) 06/30/24 02:00 M. pneumoniae (PCR) Not Detected (NotDetected) 06/30/24 02:00 Parainfluenza 1 (PCR) Not Detected (NotDetected) 06/30/24 02:00 Parainfluenza 2 (PCR) Not Detected (NotDetected) 06/30/24 02:00 Parainfluenza 3 (PCR) Not Detected (NotDetected) 06/30/24 02:00 Parainfluenza 4 (PCR) Not Detected (NotDetected) 06/30/24 02:00 RSV (PCR) Not Detected (NotDetected) 06/30/24 02:00 Entero/Rhino (PCR) Not Detected (NotDetected) 06/30/24 02:00 Diagnostic Findings Chest x-ray as per my interpretation no congestion EKG as per my interpretation : Rate 85, NSR, normal axis, T wave abnormalities lateral and septal leads
[2024-06-30 06:31] LABS: Campylobacter PCR DETECTED (NotDetected); Enteropathogenic E.coli (EPEC) DETECTED (NotDetected)
[2024-06-30] MEDS ORDERED: GLUCAGON FOR INJ 1 MG VIAL SQ PRN (06:33)
[2024-06-30] MEDS ORDERED: GLUCOSE 40% GEL 15 GM TUBE PO PRN (06:33)
[2024-06-30] MEDS ORDERED: ACETAMINOPHEN 325 MG TAB PO PRN (06:37)
[2024-06-30] MEDS ORDERED: PROMETHAZINE 6.25 MG/50.25 ML BAG IV PRN (06:37)
[2024-06-30] MEDS: DEXAMETHASONE SOD INJ 4 MG/ML VIAL IV STA (06:39)
[2024-06-30] MEDS: ALBUT/IPRATROP 3MG/0.5MG NEB 3 ML VIAL NEB STA (06:39)
[2024-06-30] MEDS ORDERED: LORazepam 0.5 MG TAB PO PRN (06:40)
--- NOTE | 2024-06-30 06:44 | XRay Report ---
XR chest 1V portable CLINICAL HISTORY: low o2, ffup COMPARISON STUDY: Chest radiograph June 30, 2024 at 2:[address] January 25, 2017. FINDINGS: Lung volumes are normal. Lungs are clear. There is no pneumothorax or pleural effusion. Car diac size is at the upper limits of normal. Mediastinal contours are normal. There is no evidence for pulmonary edema. IMPRESSION: No acute cardiopulmonary findings. ACT 112: Negative or not required by law. Electronically signed by: Ugo Price M.D. 06/30/2024 6:43 AM
[2024-06-30] MEDS: DOXYCYCLINE HYCLATE 100 MG in DEXTROSE 5% MINI-B 100 ML IV STA (06:48)
[2024-06-30 07:05] LABS: Opiate, Urine Neg (Neg)
[2024-06-30 07:06] LABS: Amphetamines+Metham, Urine Neg (Neg); Barbiturates, Urine Neg (Neg); Benzodiazepine, Urine Neg (Neg); Cocaine, Urine Neg (Neg); Fentanyl, Urine Neg (Neg); MDMA (Ecstacy), Urine Neg (Neg); Marijuana, Urine Neg (Neg); Methadone, Urine Neg (Neg); Phencyclidine, Urine Neg (Neg)
[2024-06-30 07:08] LABS: Estimated Average Glucose 146 mg/dl; Hemoglobin A1C 6.7 % (4.5-5.6)
--- NOTE | 2024-06-30 07:08 | XRay Report ---
XR chest 1V portable CLINICAL HISTORY: Confusion. COMPARISON STUDY: Chest CT January 25, 2017. Chest radiograph December 04, 2018. FINDINGS: The patient is rotated. Lung volumes are normal. Lungs are clear. There is no pneumothorax or pleural effusion. Cardiac size is normal. Mediastinal contours are normal. There is no evidence fo r pulmonary edema. IMPRESSION: Rotated study. No acute cardiopulmonary findings. ACT 112: Negative or not required by law. Electronically signed by: Ugo Price M.D. 06/30/2024 7:07 AM
[2024-06-30] MEDS: AZITHROMYCIN 500 MG in DEXTROSE 5% 250 ML IV STA (07:24)
[2024-06-30] MEDS: INSULIN ASPART PER UNIT CHARGE SC SCH (07:32)
[2024-06-30] MEDS: CARBOHYDRATES FOR HYPOGLYCEMIA PO PRN (07:34)
[2024-06-30] MEDS: LACTATED RINGER'S 1,000 ML IV SCH (08:16)
--- NOTE | 2024-06-30 08:56 | CT Scan Report ---
CT OF THE CHEST WITHOUT IV CONTRAST CLINICAL HISTORY: cough, transient hypoxemia COMPARISON STUDY: Chest CT January 25, 2017. Chest radiograph performed earlier today. CT DOSE: 2388.41 mGy.cm TECHNIQUE: Axial images of the chest were obtained without IV contrast. Images were reviewed in the axial, sagittal, and coronal planes. IV contrast was not administered for this examination. Automat ed exposure control was utilized for the study. A dose lowering technique was utilized adhering to t he principles of ALARA. FINDINGS: No enlarged axillary, mediastinal or hilar lymph nodes are present. Size of the heart is a t the upper limits of normal. There is mild dilatation of the central pulmonary arteries. There is no pericardial effusion. No pneumothorax or pleural effusion is present. Mild increased attenuation of the lungs with interlobular septal thickening. Patchy groundglass opacities are present. Areas of connie pected mosaic attenuation are noted. No confluent consolidation is present. Central airways are paten t. Lungs are suboptimally assessed due to respiratory motion. Bilateral adrenal lesions are better de picted on the CT of the abdomen and pelvis which will be reported separately. IMPRESSION: 1. Patchy right lung groundglass opacities with subtle increased attenuation of the lungs and interlo bular septal thickening. The findings are nonspecific but favor an infectious etiology. A follow-up c hest CT in 3 months to ensure resolution is recommended. 2. Mosaic attenuation which may reflect air trapping. 3. Mild dilatation of the central pulmonary arteries which raises the possibility of pulmonary arteri al hypertension. ACT 112: Negative or not required by law. Electronically signed by: Ugo Price M.D. 06/30/2024 8:54 AM
--- NOTE | 2024-06-30 09:08 | CT Scan Report ---
CT OF THE ABDOMEN AND PELVIS WITHOUT CONTRAST CLINICAL HISTORY: Sepsis. Acute renal failure. COMPARISON STUDY: CT of the abdomen and pelvis August 10, 2012. TECHNIQUE: Axial images of the abdomen and pelvis were obtained without IV contrast. Images were revi ewed in the axial, sagittal, and coronal planes. Automated exposure control was utilized for the ridge dy. A dose lowering technique was utilized adhering to the principles of ALARA. FINDINGS: Interlobular septal thickening and mild groundglass opacities are better depicted on the chest CT. No renal, ureteral or bladder calculi are present. There is no hydronephrosis or hyd roureter. Evaluation of the remainder of the abdomen and pelvis is suboptimal on this unenhanced exam . A 4.6 cm left adrenal mass has increased in size since CT of August 10, 2012 and measured 3.5 cm. This contains areas of suspected fat attenuation. A low-attenuation 2.3 cm right adrenal lesion has also increased in size. There is no significant biliary ductal dilatation status post cholecystectomy . Spleen and pancreas are unremarkable. The appendix is unremarkable. No evidence for a bowel obstruc tion. There is sigmoid diverticulosis with evidence for acute diverticulitis. There is no ascites. Th ere are no fluid collections. No acute fractures identified within the visualized skeletal structures . IMPRESSION: 1. No urinary calculi or hydronephrosis. 2. No bowel obstruction. No evidence for acute appendicitis. 3. Increase in size of bilateral adrenal lesions, left larger than right. These are indeterminate alt shayna a benign etiology, such as adenomas, is favored. 4. Evidence for pulmonary edema within the visualized lower lungs. ACT 112: Negative or not required by law. Electronically signed by: Ugo Price M.D. 06/30/2024 9:05 AM
[2024-06-30] MEDS: ADVANCED PROBIOTIC 625 MG CAPSULE PO SCH (10:04)
[2024-06-30] MEDS: ASPIRIN 325 MG ECTAB PO SCH (10:05)
[2024-06-30] MEDS: MULTIVITAMIN TAB PO SCH (10:05)
[2024-06-30] MEDS: CETIRIZINE HCL 10 MG TABLET PO SCH (10:05)
[2024-06-30] MEDS: PANTOprazole 40 MG TAB PO SCH (10:05)
[2024-06-30 10:39] LABS: Base Excess VBG -13.9 mEq/L; HCO3 VBG 13 mmol/L; Oxygen Saturation VBG 89.3 %; PCO2 VBG 32 mmHg (38-50); PO2 VBG 55 mmHg; pH VBG 7.21 (7.36-7.41)
[2024-06-30 11:15] LABS: BUN Creatinine Ratio 11.8 (10-20); Calcium 8.9 mg/dl (8.6-10.3); Creatinine Clr Calc Pharmacy 21.8 ml/min
[2024-06-30] MEDS: GABAPENTIN 100 MG CAP PO SCH (11:24)
[2024-06-30] MEDS ORDERED: PHARMACY GLYCEMIC MGMT CONSULT PRN (11:25)
[2024-06-30] MEDS: lamoTRIgine 100 MG TAB PO SCH (11:25)
[2024-06-30] MEDS: PIPERACILLIN/TAZOBACTAM 4.5 GM/100 ML BAG IV SCH (12:11)
--- NOTE | 2024-06-30 12:15 | Hospitalist Progress Note ---
Date of Service June 30, 2024 Assessment & Plan (1) Encephalopathy: Plan: 48-year-old lady with PMH of HTN, HLD, HALEY, MEN type I [pituitary adenoma, hyperparathyroidism] as per records, hyperprolactinemia, adrenal mass, DM2 on oral medications, mood disorder, tardive dyskinesia, urolithiasis, ongoing tobacco abuse presented to the ED 06/30 with complaint of not feeling well since last few days after returning from a trip from [facility]. She rep orts junky cough symptoms without chest pain or shortness of breath, poor appetite, feeling tired, dysuria symptoms, loose stools for about a week time prior to arrival. She is being managed for the following: Severe sepsis POA: WBC, respiratory rate elevated at presentation. Multifactorial causes as below. ARF and encephalopathy noted at presentation. Complicated UTI Severe COVID-19 bronchitis Campylobacter/EPEC gastroenteritis Likely metabolic encephalopathy: Secondary to above. Multiple neuropsychotropic medications for mood disorder contributory. hold parameters for sedation confusion for neuropsychotropic medications Patient presented with multitude of symptoms, found to be in sepsis at presentation. status post IV fluid and antibiotic in the ED. Admitting imagings: CXR with no acute finding. CTAP with no evidence of urinary calculi or bowel obstruction. Increasing size of bilateral adrenal lesions, left larger than right noted. Adenoma is favored. Follow-up with endocrinology on discharge. CT chest: Suggestive of right lung pneumonia. Follow-up CT chest in 3 months to ensure resolution is recommended. Patient reports feeling better. Follow-up admitting blood culture and urine culture. Symptomatic management for gastroenteritis. Azithromycin for complicated bronchitis secondary to COVID-19 illness and Campylobacter diarrhea. Decadron for severe COVID 19 illness given hypoxemia at presentation. Continue with Zosyn 10/5, azithromycin 10/5, dexamethasone 10/5. Hypotension: secondary to hypovolemia, illness . Improving. Hold multiple antihypertensive medications for now. Hypoglycemia: DM2 on oral medications, suboptimal control as of hemoglobin A1c of 8.27 August 2023. 6.7 this admission. Hypoglycemia protocol on board, communicated w/ RN for frequent monitoring/snacks and utilization of hypog lycemia protocol. Glycemic pharmacy consulted. [place] toxicity: [place] level 1.6 this admission, elevated likely 2/2 poor renal function. hold lithium for now. Acute Kidney Injury Metabolic acidosis secondary to kidney dysfunction Creatinine elevated at 4.36 at presentation, baseline seems around 1.0 per prior labs in our EHR. Admitting CTAP reviewed. Avoid nephrotoxic's, Continue with IV fluid, labs in AM. Nephrology consult, await further recommendation. Other chronic medical conditions: Continue with/resume home meds as when able. 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 Follow up w/ endo on discharge. tardive dyskinesia as per records ongoing tobacco abuse: Nicotine patch as needed DVT prophylaxis. Heparin subcu Full code Total time spent: 70 min. Text document was generated using YOU[employer] voice recognition software. It may contain grammatical or spelling errors. Kindly contact undersigned for clarification of any documentation item in question. Admission and Anticipated Discharge Date Admission Date: June 30, 2024 Subjective Patient was seen and examined at bedside. Patient was lying in bed, on room air, NAD, resting comfortably. Patient reports having a week of tiredness/easy fatigability/loose stools prior to arrival, patient reports improving symptoms here in the hospital, reports improving strength. Patient reports occasional cough, denies nausea/vomiting/abdominal pain. Patient reports feeling overall better. Physical Exam Physical Exam: GENERAL: Comfortable, pleasant, obese, no respiratory distress. On RA. SKIN: Normal color, cool HEENT: [place] palpebral conjunctivae, no ptosis, mosit buccal mucosa NECK : Supple, no tenderness CHEST : Expiratory wheezes, no tenderness HEART : RRR, no obvious murmurs ABDOMEN: Some distention, nontender EXTREMITIES : Minimal LE swelling, no LE tenderness, no other conspicuous deformities noted NEUROLOGIC : Coherent, no facial asymmetry, no other gross focality Results & Data Results & Data Vital Signs (Past 12 Hours) Vital Signs Temp Pulse Pulse Resp BP BP Pulse Ox 06/30/24 11:22 72 18 102/63 96 06/30/24 09:30 76 12 118/63 96 06/30/24 08:00 88 20 98/60 L 96 06/30/24 07:01 36.8 C 86 19 104/62 96 06/30/24 07:00 87 21 110/49 L 95 06/30/24 06:05 36.1 C L 06/30/24 06:00 76 18 101/50 L 91 06/30/24 05:35 74 06/30/24 05:00 65 14 102/46 L 99 06/30/24 04:20 35.2 C L 06/30/24 03:34 65 23 96/47 L 91 06/30/24 02:11 34 C L 06/30/24 02:01 58 L 16 89/56 L 96 06/30/24 01:47 34 C L 58 L 16 90/55 L 96 06/30/24 01:36 66 O2 Del Method 06/30/24 11:22 Room Air 06/30/24 09:30 06/30/24 08:00 06/30/24 07:01 06/30/24 07:00 06/30/24 06:05 06/30/24 06:00 06/30/24 05:35 06/30/24 05:00 06/30/24 04:20 06/30/24 03:34 06/30/24 02:11 06/30/24 02:01 06/30/24 01:47 06/30/24 01:36
--- NOTE | 2024-06-30 14:46 | Nephrology Consultation ---
Date of Consultation June 30, 2024 Assessment & Plan (1) NADIRA (acute kidney injury): Most likely was pre renal type to start with given poor PO intake some diarrhea but Likely had some ATN component also with sepsis and low BP. In any case labs better. creat down trending and making more urine. Continue IVF at lower rate of 100/hr--1/2ns 75 bicarb Daily labs enough but will check renal panel and [place] now. CT -C/A/P reviewed. No Hydronephrosis. Some possibility of developing fluid overload/Pulm edema so have to be careful with aggressive hydration. (2) [place] toxicity: last level was 1.6. Hold [place] for now. Check again. Should be better now after all hydration. No need of Dialysis for this level. (3) Disorder of acid-base balance: Bicarb is dropping but AG normal. Stop ringer lactate. Change to 1/2ns and 75 meq Sodium bicarb at 100ml/hr. (4) Hyponatremia: na slightly low at 131. Likely hypovolemia related. Continue isotonic Saline (5) Sepsis: BP was low and she lookedc septic On admssiion but seemed to have got better since then. BP is now good. On ABX. has possible UTI as well as resp findings also Plan Case complexity high. time spent 62 mins. History of Present Illness Reason for Consultation: NADIRA Attending Physician: Kiah Garay MD History of Present Illness 48/F with Normal baseline renal function creat of 0.9. 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 brought by . patient does not remember much so did most of the talking. Patient not feeling well the last few days after returning from a trip from [facility]. productive cough symptoms without chest pain or SOB. nausea, Diarrhea and Poor appetite. Denies abdominal or flank pain or dysuria symptoms. Very weak and more sleepy. Patient hypoglycemic at home-- BSG 30s. In the ed had low BP. Lowest SBP of 80s. also transient hypoxia with O2 sats of 80s. Since admission has received aggressive hydration currently RL at 200/hr Adx creat was 4.4 and now it is 3.9. na also low. [place] level was elevated at 1.6. Cefepime administered at the ER. PHYSICAL EXAMINATION: General: Fatigued, pale. Looks older than age. Slow Speech. Mm dry. neck supple. No JVD. Respiratory: lungs clear to auscultation bilaterally Cardiovascular: Regular rate/rhythm, no murmur GI: soft, nontender Extremities: nontender, moves all extremities Allergies Allergy/AdvReac Type Severity Reaction Status Date / Time No Known Allergies Allergy Verified 06/28/17 14:15 Home Medications Medication Instructions Recorded Confirmed Type OMEPRAZOLE (PRILOSEC) 20 mg PO BID ##0 08/10/12 06/30/24 History METFORMIN HCL (GLUCOPHAGE) 1,000 mg PO BIDM ##0 06/08/15 06/30/24 History Fish Oil ([place]-3) 1 cap PO DAILY #0 caps 01/24/17 06/30/24 History Multivitamin 1 tab PO DAILY #0 tabs 01/24/17 06/30/24 History PROBIOTIC PRODUCT (PROBIOTIC) 1 tab PO DAILY ##0 01/24/17 06/30/24 History ASPIRIN (ASPIRIN EC) 325 mg PO QAM ##0 05/03/17 06/30/24 History CHOLECALCIFEROL (VITAMIN D3) 2,000 inter.unit PO DAILY #0 tabs 05/03/17 06/30/24 History LAMOTRIGINE 100 mg PO BID ##0 05/03/17 06/30/24 History Lisinopril 10 mg PO DAILY ##0 05/03/17 06/30/24 History Amlodipine (Norvasc) 5 mg PO ONCE ##0 06/28/17 06/30/24 History Cetirizine (Zyrtec) 10 mg PO DAILY ##0 06/28/17 06/30/24 History Clonazepam (Klonopin) 0.5 mg PO BID ##0 06/28/17 06/30/24 History Clonazepam (Klonopin) 25 mg PO BID ##0 06/28/17 06/30/24 History Gabapentin 600 mg PO TID ##0 06/28/17 06/30/24 History LURASIDONE HCL (LATUDA) 100 mg PO HS ##0 06/28/17 06/30/24 History [place] Carbonate 1,150 mg PO HS ##0 06/28/17 06/30/24 History Potassium Ext Rel (Klor-Con) 40 meq PO HS ##0 06/28/17 06/30/24 History Patient History Social History Smoking Status: Current every day smoker Tobacco Type: Cigarettes Preferred Language: Persian Current Living Situation: Family Feels Safe at Home: Yes Results & Data Vital Signs (Past 12 Hours) Vital Signs Temp Pulse Pulse Resp BP BP Pulse Ox 06/30/24 13:58 81 18 138/75 90 06/30/24 11:22 72 18 102/63 96 06/30/24 09:30 76 12 118/63 96 06/30/24 08:00 88 20 98/60 L 96 06/30/24 07:01 36.8 C 86 19 104/62 96 06/30/24 07:00 87 21 110/49 L 95 06/30/24 06:05 36.1 C L 06/30/24 06:00 76 18 101/50 L 91 06/30/24 05:35 74 06/30/24 05:00 65 14 102/46 L 99 06/30/24 04:20 35.2 C L 06/30/24 03:34 65 23 96/47 L 91 O2 Del Method 06/30/24 13:58 Room Air 06/30/24 11:22 Room Air 06/30/24 09:30 06/30/24 08:00 06/30/24 07:01 06/30/24 07:00 06/30/24 06:05 06/30/24 06:00 06/30/24 05:35 06/30/24 05:00 06/30/24 04:20 06/30/24 03:34
[2024-06-30] MEDS: GLUCOSE 10 TAB/TUBE PO PRN (14:57)
[2024-06-30] MEDS: HEPARIN SOD 5,000 UNIT/0.5 ML VIAL SQ SCH (14:59)
[2024-06-30] MEDS ORDERED: STAT IV/IM STA (15:06)
[2024-06-30] MEDS: SODIUM BICARBONATE 8.4% 75 MEQ in SODIUM CHLORIDE 0.45 % 1,000 ML IV SCH (15:46)
[2024-06-30] MEDS: DEXTROSE 50% 50 ML SYRINGE IV PRN (16:11)
[2024-06-30 16:59] LABS: A calco-baum cmplx NotReported Not Detected (NotDetected); Bact fragilis Not Reported Not Detected (NotDetected); Blood Culture Id Panel PCR Panel Negative (NotDetected); C auris Not Reported Not Detected (NotDetected); Calbicans Not Reported Not Detected (NotDetected); Candida glabrata Not Reported Not Detected (NotDetected); Candida krusei Not Reported Not Detected (NotDetected); Cneoformans/gatti Not Reported Not Detected (NotDetected); Cparapsilosis Not Reported Not Detected (NotDetected); E cloacae compx Not Reported Not Detected (NotDetected); Efaecalis Not Reported Not Detected (NotDetected); Efaecium Not Reported Not Detected (NotDetected); Enterobacterales Not Reported Not Detected (NotDetected); Escherichia coli Not Reported Not Detected (NotDetected); H influenzae Not Reported Not Detected (NotDetected); K aerogenes Not Reported Not Detected (NotDetected); Koxytoca Not Reported Not Detected (NotDetected); Kpneumoniae grp Not Reported Not Detected (NotDetected); Lmonocyt Not Reported Not Detected (NotDetected); N meningitidis Not Reported Not Detected (NotDetected); P aeruginosa Not Reported Not Detected (NotDetected); Proteus spp Not Reported Not Detected (NotDetected); Salmonella spp Not Reported Not Detected (NotDetected); Staph lugdunensis Not Reported Not Detected (NotDetected); Staph spp. Not Reported Not Detected (NotDetected); Staphaureus Not Reported Not Detected (NotDetected); Staphepi Not Reported Not Detected (NotDetected); Stenmaltophilia Not Reported Not Detected (NotDetected); Strep agal(GrpB) Not Reported Not Detected (NotDetected); Strep pneum Not Reported Not Detected (NotDetected); Strep pyog (GrpA) Not Reported Not Detected (NotDetected); Strep spp Not Reported Not Detected (NotDetected)
[2024-06-30 17:30] LABS: Albumin Level 3.6 gm/dl (3.4-5.0); BUN Creatinine Ratio 11.4 (10-20); Calcium 9.1 mg/dl (8.6-10.3); Creatinine Clr Calc Pharmacy 24.2 ml/min; Phosphorus 3.9 mg/dl (2.5-4.9); Potassium 4.1 mmol/L (3.5-5.1)
[2024-06-30] MEDS: LURASIDONE HCL 20 MG TAB PO SCH (18:34)
[2024-06-30] MEDS ORDERED: DOXYCYCLINE HYCLATE 100 MG CAP PO SCH (21:00)
[2024-07-01 06:40] LABS: Basophils # (auto) 0.04 K/uL (0.00-0.20); Basophils % (auto) 0.3 %; Eosinophils # (auto) 0.07 K/uL (0.00-0.50); Eosinophils % (auto) 0.5 %; Hematocrit (blood only) 42.8 % (37.0-47.0); Hemoglobin 14.3 g/dl (12.0-16.0); Immature Granulocytes # (auto) 0.14 K/uL (0.01-0.20); Immature Granulocytes % (auto) 0.9 %; Lymphocytes # (auto) 3.74 K/uL (1.20-3.40); Lymphocytes % (auto) 24.6 %; Mean Corpuscular Hemoglobin 29.4 pg (25.0-34.0); Mean Corpuscular Hgb Conc 33.4 g/dL (32.0-36.0); Mean Corpuscular Volume 87.9 fL (80.0-100.0); Mean Platelet Volume 9.3 fL (9.4-12.4); Monocytes # (auto) 1.14 K/uL (0.11-0.59); Monocytes % (auto) 7.5 %; Neutrophils # (auto) 10.06 K/uL (1.40-6.50); Neutrophils % (auto) 66.2 %; Platelet Count 433 K/uL (130-400); RDW Coefficient of Variation 14.9 % (11.5-14.5); RDW Standard Deviation 47.6 fL (36.4-46.3); Red Blood Count 4.87 M/uL (4.20-5.40); White Blood Count 15.19 K/ul (4.8-10.8)
[2024-07-01 07:12] LABS: BUN Creatinine Ratio 13.1 (10-20); Calcium 9.9 mg/dl (8.6-10.3); Creatinine Clr Calc Pharmacy 30.7 ml/min; Magnesium 2.2 mg/dl (1.7-2.4); Phosphorus 2.8 mg/dl (2.5-4.9); Potassium 3.7 mmol/L (3.5-5.1)
[2024-07-01] MEDS: AZITHROMYCIN 250 MG TAB PO SCH (08:34)
[2024-07-01] MEDS: dexAMETHasone 6 MG in SYRINGE 0 ML IV SCH (08:35)
--- NOTE | 2024-07-01 14:06 | Hospitalist Progress Note ---
Date of Service July 01, 2024 Assessment & Plan (1) Encephalopathy: Plan: 48-year-old lady with PMH of HTN, HLD, HALEY, MEN type I [pituitary adenoma, hyperparathyroidism] as per records, hyperprolactinemia, adrenal mass, DM2 on oral medications, mood disorder, tardive dyskinesia, urolithiasis, ongoing tobacco abuse presented to the ED 06/30 with complaint of not feeling well since last few days after returning from a trip from [facility]. She rep orts junky cough symptoms without chest pain or shortness of breath, poor appetite, feeling tired, dysuria symptoms, loose stools for about a week time prior to arrival. She is being managed for the following: Severe sepsis POA: WBC, respiratory rate elevated at presentation. Multifactorial causes as below. ARF and encephalopathy noted at presentation. Complicated UTI Severe COVID-19 bronchitis Campylobacter/EPEC gastroenteritis Likely metabolic encephalopathy: Secondary to above. Multiple neuropsychotropic medications for mood disorder contributory. hold parameters for sedation confusion for neuropsychotropic medications Patient presented with multitude of symptoms, found to be in sepsis at presentation. status post IV fluid and antibiotic in the ED. Admitting imagings: CXR with no acute finding. CTAP with no evidence of urinary calculi or bowel obstruction. Increasing size of bilateral adrenal lesions, left larger than right noted. Adenoma is favored. Follow-up with endocrinology on discharge. CT chest: Suggestive of right lung pneumonia. Follow-up CT chest in 3 months to ensure resolution is recommended. Patient reports feeling better. WBC trending down, patient is afebrile. Admitting blood culture positive for bacillus, likely contaminant, repeat blood culture 07/01. Admitting urine culture with gram-negative baseline. Symptomatic management for gastroenteritis. Azithromycin for complicated bronchitis secondary to COVID-19 illness and Campylobacter diarrhea. Decadron for severe COVID 19 illness given hypoxemia at presentation. Continue with Zosyn 10, azithromycin 10/, dexamethasone 10/. Hypotension: secondary to hypovolemia, illness . Improving. Hold multiple antihypertensive medications for now. Hypoglycemia: DM2 on oral medications, suboptimal control as of hemoglobin A1c of 8.27 August 2023. 6.7 this admission. Hypoglycemia protocol on board. Glycemic pharmacy consulted. [place] toxicity: [place] level 1.6 this admission, elevated likely 2/2 poor renal function. hold lithium for now. Acute Kidney Injury Metabolic acidosis secondary to kidney dysfunction Creatinine elevated at 4.36 at presentation, baseline seems around 1.0 per prior labs in our EHR. Admitting CTAP reviewed. Avoid nephrotoxic's, Continue with IV fluid, labs in AM. Nephrology consult, managing ivf. Cr trending down, labs in AM Other chronic medical conditions: Continue with/resume home meds as when able. 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 Follow up w/ endo on discharge. tardive dyskinesia as per records ongoing tobacco abuse: Nicotine patch as needed DVT prophylaxis. Heparin subcu Full code Text document was generated using [employer] voice recognition software. It may contain grammatical or spelling errors. Kindly contact undersigned for clarification of any documentation item in question. Admission and Anticipated Discharge Date Admission Date: June 30, 2024 Subjective Patient was seen and examined at bedside. Patient was lying in bed, on room air, NAD, resting comfortably. Patient reports feeling better, improving strength. Patient is eating okay. Patient denies further diarrhea in the hospital. Patient reports occasional cough, denies nausea/vomiting/abdominal pain. Physical Exam Physical Exam: GENERAL: Comfortable, pleasant, obese, no respiratory distress. On RA. SKIN: Normal color, cool HEENT: [place] palpebral conjunctivae, no ptosis, mosit buccal mucosa NECK : Supple, no tenderness CHEST : Expiratory wheezes, no tenderness HEART : RRR, no obvious murmurs ABDOMEN: Some distention, nontender EXTREMITIES : Minimal LE swelling, no LE tenderness, no other conspicuous deformities noted NEUROLOGIC : Coherent, no facial asymmetry, no other gross focality Results & Data Results & Data Vital Signs (Past 12 Hours) Vital Signs Temp Pulse Pulse Resp BP Pulse Ox O2 Del Method 07/01/24 10:47 36.7 C 65 20 125/86 94 Room Air 07/01/24 08:02 67 07/01/24 08:02 Room Air 07/01/24 07:18 36.7 C 64 18 119/76 96 Room Air 07/01/24 03:06 36.9 C 60 16 118/75 95 Room Air
--- NOTE | 2024-07-01 14:26 | Pharmacy Report ---
Pharmacy Glycemic Short Note 2 - Date of Service July 01, 2024 - Glycemic Short BSG Results (Last 24 hours): 06/30/24 06/30/24 06/30/24 14:49 15:30 16:36 Glucose POC Glucose 63 L* 51 L* 106 H 06/30/24 06/30/24 06/30/24 16:59 17:57 18:01 Glucose 88 POC Glucose 41 L* 41 L* 06/30/24 06/30/24 06/30/24 18:21 18:22 18:43 Glucose POC Glucose 63 L* 66 L* 87 06/30/24 07/01/24 07/01/24 20:17 06:10 07:16 Glucose 99 POC Glucose 106 H 120 H 07/01/24 11:48 Glucose POC Glucose 246 H OUTPATIENT ANTIDIABETIC REGIMEN: * Glipizide ER 20 mg PO QAM * Jardiance 25 mg PO daily * Metformin 1 gm PO BID HbA1c: 6.7% on 06/30/24 ASSESSMENT: * 48 y/o F admitted for severe sepsis, encephalopathy and Covid yesterday Patient has history of Type 2 diabetes managed on only oral anti-diabetic meds at home. Also with acute renal failure. * Started on IV Dexamethasone 10 mg x1 yesterday, then 6 mg daily today. * Patient had been hypoglycemic or with low blood sugars through out yesterday. * Fasting BSG today was 99 mg/dl. Pre-lunch BSG trended up to 246 mg/dl today, this is probably from IV steroids starting to cause hyperglycemia and patient food intake improving. * Will watch blood sugars this evening and assess if Novolog parameters need tightened up and basal insulin should be started. PLAN FOR INPATIENT GLYCEMIC CONTROL: * Hold outpatient oral diabetes medications * Basal insulin * none * Bolus insulin * NovoLog per scale ACHS or Q6hrs while NPO * Goal Range: Low 110 mg/dL - High 140 mg/dL * Correction Factor: 25 mg/dL/unit * Nutritional / Prandial insulin per carb ratio of 1 unit per 15 grams CHO consumed
[2024-07-01] MEDS ORDERED: STAT IV/IM STA (15:25)
--- NOTE | 2024-07-01 15:25 | Nephrology Progress Note ---
Date of Service July 01, 2024 Assessment & Plan Admission and Anticipated Discharge Date Admission Date: June 30, 2024 Subjective Assessment & Plan (1) NADIRA (acute kidney injury): Most likely was pre renal type to start with given poor PO intake some diarrhea but Likely had some ATN component also with sepsis and low BP. In any case labs better. creat down trending and making more urine. Continue IVF at lower rate of 75ml/hr--1/2ns 75 bicarb Daily renal panel and [place] CT -C/A/P reviewed. No Hydronephrosis. Some possibility of developing fluid overload/Pulm edema so have to be careful with aggressive hydration. (2) [place] toxicity: last level was 1.5 earlier today. Continue IVF Hold [place] for now. Check again in AM. Should be better now after all hydration. No need of Dialysis for this level. (3) Disorder of acid-base balance: Bicarb is dropping but AG normal. Stop ringer lactate. Change to 1/2ns and 75 meq Sodium bicarb at 100ml/hr. (4) Hyponatremia: na slightly low at 131. Likely hypovolemia related. Continue isotonic Saline (5) Sepsis: BP was low and she looked septic On admission but seemed to have got better since then. BP is now good. On ABX. has possible UTI as well as resp findings in CXR. S--patient much better than yesterday. More energy and more interactive. at bedside. PHYSICAL EXAMINATION: General: Awake and alert. no distress Mm moist. neck supple. No JVD. Respiratory: lungs clear to auscultation bilaterally Cardiovascular: Regular rate/rhythm, no murmur GI: soft, nontender Extremities: nontender, moves all extremities Results & Data Vital Signs (Past 12 Hours) Vital Signs Temp Pulse Pulse Resp BP Pulse Ox O2 Del Method 07/01/24 15:03 74 07/01/24 10:47 36.7 C 65 20 125/86 94 Room Air 07/01/24 08:02 67 07/01/24 08:02 Room Air 07/01/24 07:18 36.7 C 64 18 119/76 96 Room Air
[2024-07-01] MEDS ORDERED: SODIUM BICARBONATE 8.4% 75 MEQ in SODIUM CHLORIDE 0.45 % 1,000 ML IV SCH (15:30)
[2024-07-01] MEDS: LANTUS PER UNIT CHARGE SC SCH (18:22)
--- NOTE | 2024-07-01 20:33 | Electrocardiogram Report ---
Test Reason : Blood Pressure : */* mmHG Vent. Rate : 83 BPM Atrial Rate : 83 BPM P-R Int : 192 ms QRS Dur : 94 ms QT Int : 386 ms P-R-T Axes : 68 25 79 degrees QTcB Int : 453 ms Normal sinus rhythm Normal ECG When compared with ECG of 28-Jun-2017 12:58, Nonspecific T wave abnormality, improved in Lateral leads Confirmed by Nathan Velarde ([id number]) on 07/01/2024 8:33:24 PM Referred By: REFERRED SELF Confirmed By: Nathan Velarde
[2024-07-02 07:37] LABS: Hemoglobin 15.1 g/dl (12.0-16.0); Mean Corpuscular Hemoglobin 29.5 pg (25.0-34.0); Mean Corpuscular Hgb Conc 33.6 g/dL (32.0-36.0); Mean Corpuscular Volume 88.1 fL (80.0-100.0); Mean Platelet Volume 9.5 fL (9.4-12.4); Platelet Count 473 K/uL (130-400); RDW Coefficient of Variation 14.8 % (11.5-14.5); RDW Standard Deviation 47.9 fL (36.4-46.3); Red Blood Count 5.11 M/uL (4.20-5.40); White Blood Count 13.91 K/ul (4.8-10.8)
[2024-07-02 07:50] LABS: BUN Creatinine Ratio 14.5 (10-20); Calcium 10.3 mg/dl (8.6-10.3); Creatinine Clr Calc Pharmacy 46.6 ml/min; Phosphorus 2.5 mg/dl (2.5-4.9); Potassium 3.8 mmol/L (3.5-5.1)
[2024-07-02] MEDS: LANTUS PER UNIT CHARGE SC SCH (09:13)
--- NOTE | 2024-07-02 12:23 | Nephrology Progress Note ---
Date of Service July 02, 2024 Assessment & Plan (1) NADIRA (acute kidney injury): Plan: improving stage 3 NADIRA, nonoliguric. baseline reported creat 0.9. Most likely was pre renal type to start with given poor PO intake some diarrhea but Likely had some ATN component also with sepsis and low BP. In any case labs better. creat down trending though still markedly elevated/ meeting stage 2 criteria w/ creat 1.8 will need markedly improved creatinine before resuming lithium if that is the plan; ideally would let renal function stabilize and get back to w/in a few tenths' unit of her baseline; if not needing to get back on this medication before d/c or imminently, could potentially be d/c soon and follow as OP; creatinine plateau'd today 3+ voids today Continue IVF at lower rate of 75ml/hr--1/2ns 75 bicarb >> changed to LR given her bicarbonate 26 Daily renal panel and [place] [facility] coordinated w/ Dr Garay regarding Li levels, target creatinine, plan for IV fluid changes, f/u labs via TText ;we are in agreement (2) [place] toxicity: Plan: last level was 0.9 earlier today. improved w/ hydration Hold [place] for now. Check again in AM. Should be better now after all hydration. No need of Dialysis for this level. (3) Disorder of acid-base balance: Plan: had NAGMA now normalized. Changed from bicarb rich IVF to LR at continuous 80 ml/hr. (4) Hyponatremia: Plan: resolved w/ fluid resuscitation (5) Sepsis: Plan: BP was low and she lookedc septic On admssiion but seemed to have got better since then. BP is now good. On ABX. has possible UTI as well as resp findings also Admission and Anticipated Discharge Date Admission Date: June 30, 2024 Subjective seen on evening rounds; bedside; denies sob up to commode and back; some fatigue; eager for d/c; no voiding c/o, no n/v, no confusion/tremors; minimal po intake at times > sometimes poor appetite, denies dysphagia or trouble chewing Review of Systems 2 Review of Systems: All systems reviewed & are unremarkable except as noted in Subjective Physical Exam 2 Constitutional: well developed (sitting on side of bed on RA), well nourished and cooperative; no acute distress Eyes: EOM intact bilaterally ENMT: Mouth: + dry oral mucous membranes and + poor dentition Respiratory: normal respiratory effort Auscultation: + diminished lung sounds Cardiovascular: Rate/Rhythm: + bradycardic Extremities: no edema Musculoskeletal: Extremities: strength 5/5 throughout Skin: no rashes, warm and dry Neurologic: alvar[place], fluent speech, no tremor Psychiatric: Orientation: alert and oriented x 3 Results & Data Vital Signs (Past 12 Hours) Vital Signs Temp Pulse Pulse Resp BP Pulse Ox O2 Del Method 07/02/24 11:42 36.8 C 59 L 20 133/84 96 Room Air 07/02/24 07:49 72 07/02/24 07:45 Room Air 07/02/24 07:17 36.5 C 66 15 128/80 96 Room Air Laboratory Results 07/02/24 06:58 07/02/24 06:58 Li 0.9
--- NOTE | 2024-07-02 13:07 | Pharmacy Report ---
Pharmacy Glycemic Short Note 2 - Date of Service July 02, 2024 - Glycemic Short BSG Results (Last 24 hours): 07/01/24 07/01/24 07/02/24 16:36 20:15 06:58 Glucose 167 H POC Glucose 276 H 208 H 07/02/24 07/02/24 07/02/24 07:12 11:38 11:40 Glucose POC Glucose 186 H 309 H* 279 H OUTPATIENT ANTIDIABETIC REGIMEN: * Glipizide ER 20 mg PO QAM * Jardiance 25 mg PO daily * Metformin 1 gm PO BID HbA1c: 6.7% on 06/30/24 ASSESSMENT: 07/02 * Patient received total of 35 units of insulin yesterday, of which 15 units were basal * Fasting BSG >180 - therefore will titrate up basal this AM ~30% * Steroids continued, likely seeing more of effect with ongoing doses given - will tighten novolog to stress weight based 3 today 07/01 * 48 y/o F admitted for severe sepsis, encephalopathy and Covid yesterday Patient has history of Type 2 diabetes managed on only oral anti-diabetic meds at home. Also with acute renal failure. * Started on IV Dexamethasone 10 mg x1 yesterday, then 6 mg daily today. * Patient had been hypoglycemic or with low blood sugars through out yesterday. * Fasting BSG today was 99 mg/dl. Pre-lunch BSG trended up to 246 mg/dl today, this is probably from IV steroids starting to cause hyperglycemia and patient food intake improving. * Will watch blood sugars this evening and assess if Novolog parameters need tightened up and basal insulin should be started. PLAN FOR INPATIENT GLYCEMIC CONTROL: * Hold outpatient oral diabetes medications * Basal insulin * 20 units daily * Bolus insulin * NovoLog per scale ACHS or Q6hrs while NPO * Goal Range: Low 110 mg/dL - High 140 mg/dL * Correction Factor: 15 mg/dL/unit * Nutritional / Prandial insulin per carb ratio of 1 unit per 5 grams CHO consumed
--- NOTE | 2024-07-02 13:55 | Hospitalist Progress Note ---
Date of Service July 02, 2024 Assessment & Plan (1) Encephalopathy: Plan: 48-year-old lady with PMH of HTN, HLD, HALEY, MEN type I [pituitary adenoma, hyperparathyroidism] as per records, hyperprolactinemia, adrenal mass, DM2 on oral medications, mood disorder, tardive dyskinesia, urolithiasis, ongoing tobacco abuse presented to the ED 06/30 with complaint of not feeling well since last few days after returning from a trip from [facility]. She rep orts junky cough symptoms without chest pain or shortness of breath, poor appetite, feeling tired, dysuria symptoms, loose stools for about a week time prior to arrival. She is being managed for the following: Severe sepsis POA: WBC, respiratory rate elevated at presentation. Multifactorial causes as below. ARF and encephalopathy noted at presentation. Complicated UTI Severe COVID-19 bronchitis Rt lung Pneumonia Campylobacter/EPEC gastroenteritis Likely metabolic encephalopathy: Secondary to above. Multiple neuropsychotropic medications for mood disorder contributory. hold parameters for sedation confusion for neuropsychotropic medications. Resolved. Patient presented with multitude of symptoms, found to be in sepsis at presentation. status post IV fluid and antibiotic in the ED. Admitting imagings: CXR with no acute finding. CTAP with no evidence of urinary calculi or bowel obstruction. Increasing size of bilateral adrenal lesions, left larger than right noted. Adenoma is favored. Follow-up with endocrinology on discharge. CT chest: Suggestive of right lung pneumonia. Follow-up CT chest in 3 months to ensure resolution is recommended. Patient reports feeling better. WBC trending down, patient is afebrile. Admitting blood culture positive for bacillus, likely contaminant, repeat blood culture 07/01 - NG 24 H. Admitting urine culture with e. coli (resistant to ampicillin). Symptomatic management for gastroenteritis. Azithromycin for complicated bronchitis secondary to COVID-19 illness and Campylobacter diarrhea. Decadron for severe COVID 19 illness given hypoxemia at presentation --> has been stable off of O2 for more than 24 hours, dc decadron 07/02. Continue with Zosyn 06/30, azithromycin 06/30. Hypotension: secondary to hypovolemia, illness . resolved, gradually resume home BP meds, continue to hold nephrotoxics. Hypoglycemia: DM2 on oral medications, suboptimal control as of hemoglobin A1c of 8.27 August 2023. 6.7 this admission. Hypoglycemia protocol on board. Glycemic pharmacy consulted. [employer] toxicity: [employer] level 1.6 this admission, elevated likely 2/2 poor renal function. [employer] 0.9 today, upper nl level. resume lithium from kassy AM as kidney function is improving, will coordinate w/ nephro. Acute Kidney Injury Metabolic acidosis secondary to kidney dysfunction Creatinine elevated at 4.36 at presentation, baseline seems around 1.0 per prior labs in our EHR. Admitting CTAP reviewed. Avoid nephrotoxic's, Continue with IV fluid, labs in AM. Nephrology consult, managing ivf. Cr trending down, labs in AM Other chronic medical conditions: Continue with/resume home meds as when able. 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 Follow up w/ endo on discharge. tardive dyskinesia as per records ongoing tobacco abuse: Nicotine patch as needed DVT prophylaxis. Heparin subcu Full code Dispo: Pending PT/OT eval, pending nephro clearance. Will need nephro f/u on dc, will need lithium level repeat in 3-5 days on dc. Text document was generated using [employer] voice recognition software. It may contain grammatical or spelling errors. Kindly contact undersigned for clarification of any documentation item in question. Admission and Anticipated Discharge Date Admission Date: June 30, 2024 Subjective Patient was seen and examined at bedside. Patient was lying in bed, on room air, NAD, resting comfortably. Patient reports feeling better, improving strength. Patient is eating okay. Patient denies further diarrhea in the hospital. Patient reports occasional cough, denies nausea/vomiting/abdominal pain. Physical Exam Physical Exam: GENERAL: Comfortable, pleasant, obese, no respiratory distress. On RA. SKIN: Normal color, cool HEENT: [place] palpebral conjunctivae, no ptosis, moist buccal mucosa NECK : Supple, no tenderness CHEST : Expiratory wheezes, no tenderness HEART : RRR, no obvious murmurs ABDOMEN: Some distention, nontender EXTREMITIES : Minimal LE swelling, no LE tenderness, no other conspicuous deformities noted NEUROLOGIC : Coherent, no facial asymmetry, no other gross focality Results & Data Results & Data Vital Signs (Past 12 Hours) Vital Signs Temp Pulse Pulse Resp BP Pulse Ox O2 Del Method 07/02/24 11:42 36.8 C 59 L 20 133/84 96 Room Air 07/02/24 07:49 72 07/02/24 07:45 Room Air 07/02/24 07:17 36.5 C 66 15 128/80 96 Room Air
[2024-07-02] MEDS: LACTATED RINGER'S 1,000 ML IV SCH (13:59)
[2024-07-02 16:36] VITALS: RESP 18
[2024-07-03 02:56] VITALS: TEMP 98.1
[2024-07-03 07:46] LABS: Hematocrit (blood only) 42.4 % (37.0-47.0); Hemoglobin 14.3 g/dl (12.0-16.0); Mean Corpuscular Hemoglobin 29.5 pg (25.0-34.0); Mean Corpuscular Hgb Conc 33.7 g/dL (32.0-36.0); Mean Corpuscular Volume 87.4 fL (80.0-100.0); Mean Platelet Volume 9.2 fL (9.4-12.4); Platelet Count 411 K/uL (130-400); RDW Coefficient of Variation 14.8 % (11.5-14.5); RDW Standard Deviation 47.4 fL (36.4-46.3); Red Blood Count 4.85 M/uL (4.20-5.40); White Blood Count 14.03 K/ul (4.8-10.8)
[2024-07-03 07:54] LABS: BUN Creatinine Ratio 13.2 (10-20); Calcium 9.9 mg/dl (8.6-10.3); Creatinine Clr Calc Pharmacy 69.5 ml/min; Potassium 3.7 mmol/L (3.5-5.1)
[2024-07-03] MEDS: LANTUS PER UNIT CHARGE SC SCH (08:39)
[2024-07-03] MEDS: amLODIPine BESYLATE 5 MG TAB PO SCH (08:49)
--- NOTE | 2024-07-03 10:17 | Nephrology Progress Note ---
Date of Service July 03, 2024 Assessment & Plan (1) NADIRA (acute kidney injury): Plan: further improving stage 3 NADIRA, nonoliguric. baseline reported creat 0.9. primarily pre renal given poor PO intake some diarrhea but Likely had some ATN component also with sepsis and low BP. In any case creat down trending rapidly ideally would let renal function stabilize at baseline for a few days before resuming Li, assumes not needing to get back on this medication before d/c or imminently; recommend primary service discuss timing of resuming Li w/ OP psych > would ideally wait 3-4 days at baseline or so before resuming NEPHRO d/c RECS -hospital d/c appt w/ Dr Ramon or myself in 2 wks w/ BMP, uacm, ACR, Li trough to be ordered by neph nurse and drawn no more than 72 hrs before OV; need to understand better indications if any for ASA 325 mg daily -recommend BMP at [facility] hospital d/c appt -note she also needs endocrine f/u after d/c for BL adrenal adenomata (?MEN1, though lithium use can cause parathyroid issues as well); also needs chest CT to f/u PNA RLL -OK to resume metformin, K supplements at d/c -continue to hold lisinopril and lithium will stop IVF Care coordinated w/ Dr Garay regarding Li planning /dispo above, continued creatinine monitoring, OP nephro f/u and d/c meds in person and via TText ;we are in agreement (2) [employer] toxicity: Plan: last level was 0.6 earlier today. improved w/ hydration Hold [place] for now. Peak value 1.9; has not needed HD this admission (3) Disorder of acid-base balance: Plan: had NAGMA now normalized from diarrhea -stop IVF (4) Hyponatremia: Plan: resolved w/ fluid resuscitation; hypovolemic (5) Sepsis: Plan: BP was low and she lookedc septic On admssiion but seemed to have got better since then. BP is now good. On ABX. has possible UTI as well as resp findings also Admission and Anticipated Discharge Date Admission Date: June 30, 2024 Subjective no acute interval clinical events. diarrhea stopped; tolerating po; no sob or edema; no new/worrisome voiding c/o; no tremor Review of Systems 2 Review of Systems: All systems reviewed & are unremarkable except as noted in Subjective Physical Exam 2 Constitutional: well developed (sitting up in bed on RA), well nourished and cooperative; no acute distress Eyes: EOM intact bilaterally ENMT: Mouth: + dry oral mucous membranes and + poor dentition Respiratory: normal respiratory effort Auscultation: + diminished lung sounds Cardiovascular: Rate/Rhythm: + bradycardic Extremities: no edema Musculoskeletal: Extremities: strength 5/5 throughout Skin: no rashes, warm and dry Psychiatric: Orientation: alert and oriented x 3 Results & Data Vital Signs (Past 12 Hours) Vital Signs Temp Pulse Pulse Resp BP Pulse Ox O2 Del Method 07/03/24 09:36 Room Air 07/03/24 07:54 36.7 C 61 18 124/81 95 Room Air 07/03/24 07:47 48 L 07/03/24 02:54 36.7 C 65 18 133/87 95 Room Air 07/02/24 23:42 49 L 07/02/24 23:09 36.8 C 58 L 18 128/78 94 Room Air Laboratory Results 07/03/24 07:18 07/03/24 07:18 Li 0.6
[2024-07-03 10:59] VITALS: BP 138/86; PULSE 58; O2SAT 97
--- NOTE | 2024-07-03 11:11 | Pharmacy Report ---
Pharmacy Glycemic Short Note 2 - Date of Service July 03, 2024 - Glycemic Short BSG Results (Last 24 hours): 07/02/24 07/02/24 07/02/24 11:38 11:40 16:34 Glucose POC Glucose 309 H* 279 H 222 H 07/02/24 07/03/24 07/03/24 20:22 07:18 07:53 Glucose 159 H POC Glucose 250 H 156 H OUTPATIENT ANTIDIABETIC REGIMEN: * Glipizide ER 20 mg PO QAM * Jardiance 25 mg PO daily * Metformin 1 gm PO BID HbA1c: 6.7% on 06/30/24 ASSESSMENT: 07/03 * Patient received total of 69 units of insulin yesterday, of which 20 units were basal insulin * Fasting BSG 156 mg/dL - steroids now discontinued, anticipate effects to wear off today therefore will scale back on Lantus dose this AM * Could consider loosening novolog parameters later today 07/02 * Patient received total of 35 units of insulin yesterday, of which 15 units were basal * Fasting BSG >180 - therefore will titrate up basal this AM ~30% * Steroids continued, likely seeing more of effect with ongoing doses given - will tighten novolog to stress weight based 3 today 07/01 * 48 y/o F admitted for severe sepsis, encephalopathy and Covid yesterday Patient has history of Type 2 diabetes managed on only oral anti-diabetic meds at home. Also with acute renal failure. * Started on IV Dexamethasone 10 mg x1 yesterday, then 6 mg daily today. * Patient had been hypoglycemic or with low blood sugars through out yesterday. * Fasting BSG today was 99 mg/dl. Pre-lunch BSG trended up to 246 mg/dl today, this is probably from IV steroids starting to cause hyperglycemia and patient food intake improving. * Will watch blood sugars this evening and assess if Novolog parameters need tightened up and basal insulin should be started. PLAN FOR INPATIENT GLYCEMIC CONTROL: * Hold outpatient oral diabetes medications * Basal insulin - decreased * 15 units daily * Bolus insulin * NovoLog per scale ACHS or Q6hrs while NPO * Goal Range: Low 110 mg/dL - High 140 mg/dL * Correction Factor: 15 mg/dL/unit * Nutritional / Prandial insulin per carb ratio of 1 unit per 5 grams CHO consumed
--- NOTE | 2024-07-03 12:24 | Discharge Summary ---
Date of Service July 03, 2024 Admission HPI Per Admitting Provider History obtained from patient and records. 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 Last confinement 2014 under Psychiatry service for suicidality. Patient not feeling well the last few days after returning from a trip from [facility]. Junky cough symptoms without chest pain or SOB. Poor appetite. Patient is feeling tired. Denies abdominal or flank pain or dysuria symptoms. Patient sleeping a lot at home as per . Watery diarrhea symptoms. Patient hypoglycemic at home, BSG 30s. Patient brought to the ER for evaluation. Lowest SBP of 80s, temperature of 34. Transient O2 sats of 80s while at the ER around 4:30 AM. Cefepime administered at the ER. Medical History as above Surgical History : D&C, lipoma removal, ovarian cyst removal, cholecystectomy Family History : Breast cancer, DM, heart disease, bipolar disorder Personal/Social history : 1 pack daily, no EtOH intake, disabled Admission Exam Per Admitting Provider GENERAL: Comfortable, pleasant, obese, no respiratory distress SKIN: Normal color, cool HEENT: [place] palpebral conjunctivae, no ptosis, dry buccal mucosa, nasal cannula in place NECK : Supple, no tenderness CHEST : Expiratory wheezes, no tenderness HEART : RRR, no obvious murmurs ABDOMEN: Some distention, nontender EXTREMITIES : Minimal LE swelling, no LE tenderness, no other conspicuous deformities noted NEUROLOGIC : Coherent, no facial asymmetry, no other gross focality Principal Diagnosis Severe sepsis POA Complicated UTI Severe COVID-19 bronchitis Right lung pneumonia Campylobacter/EPEC gastroenteritis Metabolic encephalopathy, resolved Hypotension Hypoglycemia [place] toxicity Acute kidney injury Metabolic acidosis secondary to kidney dysfunction Discharge Exam GENERAL: Comfortable, pleasant, obese, no respiratory distress. On RA. SKIN: Normal color, cool HEENT: [place] palpebral conjunctivae, no ptosis, moist buccal mucosa NECK : Supple, no tenderness CHEST : Expiratory wheezes, no tenderness HEART : RRR, no obvious murmurs ABDOMEN: Some distention, nontender EXTREMITIES : Minimal LE swelling, no LE tenderness, no other conspicuous deformities noted NEUROLOGIC : Coherent, no facial asymmetry, no other gross focality Discharge Data Allergies Allergy/AdvReac Type Severity Reaction Status Date / Time No Known Allergies Allergy Verified 06/28/17 14:15 Consultations 06/30/24 03:52 ED Decision to Admit Stat 06/30/24 11:03 Consult Nephrology Routine Ordered Studies 06/30/24 06:35 CT Abd and Pelvis [CT abd pelvis wo con] Stat 06/30/24 07:43 CT chest diagnostic wo con Stat Hospital Course (1) Encephalopathy: 48-year-old lady with PMH of HTN, HLD, HALEY, MEN type I [pituitary adenoma, hyperparathyroidism] as per records, hyperprolactinemia, adrenal mass, DM2 on oral medications, mood disorder, tardive dyskinesia, urolithiasis, ongoing tobacco abuse presented to the ED 06/30 with complaint of not feeling well since last few days after returning from a trip from [facility]. She reports junky cough symptoms without chest pain or shortness of breath, poor appetite, feeling tired, dysuria symptoms, loose stools for about a week time prior to arrival. She was managed for the following: Severe sepsis POA: WBC, respiratory rate elevated at presentation. Multifactorial causes as below. ARF and encephalopathy noted at presentation. Complicated UTI Severe COVID-19 bronchitis Rt lung Pneumonia Campylobacter/EPEC gastroenteritis Likely metabolic encephalopathy: Secondary to above. Multiple neuropsychotropic medications for mood disorder contributory. Resolved. Patient presented with multitude of symptoms, found to be in sepsis at presentation. status post IV fluid and antibiotic in the ED. Admitting imagings: CXR with no acute finding. CTAP with no evidence of urinary calculi or bowel obstruction. Increasing size of bilateral adrenal lesions, left larger than right noted. Adenoma is favored. Follow-up with endocrinology on discharge. CT chest: Suggestive of right lung pneumonia. Follow-up CT chest in 3 months to ensure resolution is recommended. Patient reports feeling better. WBC trending down, patient is afebrile. Admitting blood culture positive for bacillus, likely contaminant, repeat blood culture 07/01 - [id number]. Admitting urine culture with e. coli. Symptomatic management for gastroenteritis. Azithromycin for complicated bronchitis secondary to COVID-19 illness and Campylobacter diarrhea. Decadron for severe COVID 19 illness given hypoxemia at presentation --> has been stable off of O2 for more than 24 hours, dc decadron 07/02. Continue with Zosyn 06/30, azithromycin 10/. PO antibiotics on dc to complete the course. Hypotension: secondary to hypovolemia, illness . resolved, gradually resume home BP meds, continue to hold nephrotoxics until further PCP eval as OP w/in a week time. Hypoglycemia: DM2 on oral medications, suboptimal control as of hemoglobin A1c of 8.27 August 2023. 6.7 this admission. Hypoglycemia protocol on board. Glycemic pharmacy consulted. Pt to f/u endocrine on dc. pt is aware. [place] toxicity: [place] level 1.6 this admission, elevated likely 2/2 poor renal function. [place] 0.6 today. d/w psychiatry community relations rep, ok to hold until complete resolution of kidney function and then resume once renal fxn is at baseline. Acute Kidney Injury Metabolic acidosis secondary to kidney dysfunction Creatinine elevated at 4.36 at presentation, baseline seems around 1.0 per prior labs in our EHR. Admitting CTAP reviewed. Avoid nephrotoxic's, s/p ivf Nephrology consult, appreciate recs. Cr trending down, labs in in 3-5 days. Other chronic medical conditions: Continue with/resume home meds as when able. 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 Follow up w/ endo on discharge. tardive dyskinesia as per records ongoing tobacco abuse: Nicotine patch as needed DVT prophylaxis. Heparin subcu Full code Patient is being discharged home with following instruction at the point of discharge: Follow-up with your primary care physician within a week time and likely you will need labs CBC/CMP/magnesium/phosphorus. You were evaluated for severe sepsis likely secondary to right lung pneumonia. You were also noted to have Campylobacter/EPEC gastroenteritis. Your lithium level were also very high due to acute kidney injury/dehydration present at admission. You will be discharged on antibiotic to complete the course for Campylobacter gastroenteritis and pneumonia. Continue with your home probiotics. You will need repeat CT scan of the chest in about 3 months time to document resolution of your pneumonia. You will need repeat lithium level in 3 days time upon discharge along with kidney function test. If your kidney function are back to your baseline level, you can resume your lithium level and lisinopril after further evaluation with your PCP within a week time. Coordinate with your PCP office to set up the tests. Given multiple endocrinology related diseases, you will need to maintain follow-up with endocrine. Establish and follow-up with endocrine in 2 to 4 weeks time upon discharge. Follow-up with nephrology in 2 weeks time upon discharge. Take your medications as prescribed. Please make sure that you are able to get your medications today by calling your pharmacy before you leave the hospital so that your treatment continuity is not broken. Text document was generated using [employer] voice recognition software. It may contain grammatical or spelling errors. Kindly contact undersigned for clarification of any documentation item in question. Home Health Attestation I certify that this patient is under my care and that I, or a physicians assistant teaching professor working with me, had a face to-face encounter that meets the home health [id number] encounter requirements with this patient. The encounter with the patient was in whole, or in part, for the following medical condition, which is the primary reason for home health care (list medical condition): I certify that, based on my findings, the following services are medically necessary home health services: My clinical findings support the need for the above services because: Further, I certify that my clinical findings support that this patient is homebound (i.e. absences from home require considerable and taxing effort and are for medical reasons or denominational services or infrequently or of short duration when for other reasons) because: Certification for Home Health Services: Based on the above findings, I certify that this patient is confined to the home and needs intermittent [facility] care, physical therapy and/or speech therapy or continues to need occupational therapy. The patient is under my care, and I have initiated the establishment of the plan of care. This patient will be followed by a physician who will periodically review the plan of care. Total Time Total Time Spent Total Time Spent (In Minutes): 45 Discharge Plan Discharge Items Patient Disposition: Home - Self-Care Reason For Visit: HYPOTENSION, SEPSIS, COVID Discharge Diagnosis: Severe sepsis POA Complicated UTI Severe COVID-19 bronchitis Right lung pneumonia Campylobacter/EPEC gastroenteritis Metabolic encephalopathy, resolved Hypotension Hypoglycemia [place] toxicity Acute kidney injury Metabolic acidosis secondary to kidney dysfunction Activity: Resume your previous activity Non-emergency contact: Primary Care Provider Call non-emergency contact if: you have any medication questions Follow-up/Referrals: Shabnam Miller MD, PhD [Physician] - (The Nephrology office will contact you for a follow up appointment/lab work.) Pao Pereira DO [Primary Care Provider] - (Date & Time 07/10/2024 3:00 PM Provider Pao Pereira DO Department [facility] ) Diet: Carb Consistent or DM2, Heart Healthy and Lactose Intolerant Addtl Attending Provider Instructions: Follow-up with your primary care physician within a week time and likely you will need labs CBC/CMP/magnesium/phosphorus. You were evaluated for severe sepsis likely secondary to right lung pneumonia. You were also noted to have Campylobacter/EPEC gastroenteritis. Your lithium level were also very high due to acute kidney injury/dehydration present at admission. You will be discharged on antibiotic to complete the course for Campylobacter gastroenteritis and pneumonia. Continue with your home probiotics. You will need repeat CT scan of the chest in about 3 months time to document resolution of your pneumonia. You will need repeat lithium level in 3 days time upon discharge along with kidney function test. If your kidney function are back to your baseline level, you can resume your lithium level and lisinopril after further evaluation with your PCP within a week time. Coordinate with your PCP office to set up the tests. Given multiple endocrinology related diseases, you will need to maintain follow- up with endocrine. Establish and follow-up with endocrine in 2 to 4 weeks time upon discharge. Follow-up with nephrology in 2 weeks time upon discharge. Take your medications as prescribed. Please make sure that you are able to get your medications today by calling your pharmacy before you leave the hospital so that your treatment continuity is not broken. Pending Studies at Discharge: Yes Stand-Alone Forms: [facility], Smoking Cessation Medications and DC Order Prescriptions: New azithromycin 250 mg Tablet 250 mg PO QAM 1 Days Qty: 1 0RF amoxicillin-pot clavulanate 875-125 mg tablet 1 tab PO BID 5 Days Qty: 10 0RF Continued OMEPRAZOLE (PRILOSEC) 20 MG capsule 20 mg PO BID Qty: 0 METFORMIN HCL (GLUCOPHAGE) 1,000 MG tablet 1,000 mg PO BIDM Qty: 0 PROBIOTIC PRODUCT (PROBIOTIC) 1 TAB tablet 1 tab PO DAILY Qty: 0 Multivitamin tablet 1 tab PO DAILY Qty: 0 Fish Oil ([place]-3) 1 EA capsule 1 cap PO DAILY Qty: 0 LAMOTRIGINE 100 MG tablet 100 mg PO BID Qty: 0 ASPIRIN (ASPIRIN EC) 325 MG tablet 325 mg PO QAM Qty: 0 CHOLECALCIFEROL (VITAMIN D3) 1,000 UNIT tablet 2,000 inter.unit PO DAILY Qty: 0 Clonazepam (Klonopin) 1 MG tablet 25 mg PO BID Qty: 0 Clonazepam (Klonopin) 0.5 MG tablet 0.5 mg PO BID Qty: 0 Patient Comments: 1600 Gabapentin 600 MG tablet 600 mg PO TID Qty: 0 LURASIDONE HCL (LATUDA) 20 MG tablet 100 mg PO HS Qty: 0 Potassium Ext Rel (Klor-Con) 20 MEQ PGEFP-UBM-AUL 40 meq PO HS Qty: 0 Cetirizine (Zyrtec) 10 MG tablet 10 mg PO DAILY Qty: 0 Changed Amlodipine (Norvasc) tablet 5 mg PO DAILY Qty: 30 0RF Held Lisinopril 10 MG tablet 10 mg PO DAILY Qty: 0 Hold Instructions: Resume on 07/09/24. Until repeat BMP and renal function normalizes. [place] Carbonate 600 MG capsule 1,150 mg PO HS Qty: 0 Hold Instructions: Resume on 07/09/24. Until repeat lithium and BMP level and further eval by PCP within a week. Discharge Orders: Discharge Order (Routine); Ordered 07/03/24 Ordered By: Kiah Hassan/Other Patient Handouts: Hypoglycemia (Low Blood Sugar), Managing Type 2 Diabetes Admission Data Admit Date/Time: 06/30/24 06:31 Attending Provider: Kiah Garay Admit Provider: Eladio Benites Primary Care Provider: Pao Pereira Other Providers: Eladio Benites; Shabnam Miller; Valentin Ramon; Jany Davis; Tim Lloyd; Rita Esquivel
== END 2024-07-03 15:27 | disposition home or self-care (01) | DRG 871 ==
LOC: ED 01:16 → EDINP 06:31 → 2S 17:25